=== PATIENT | female | born 1970 | race Hispanic/Latino ===

== ENCOUNTER → 2017-02-08 | Day surgery (SDC) | payer OTHER ==
[~2017-02-08] MED LIST: ATIVAN PO; ATIVAN2 MG PO; BENTYL20 MG PO; CARAFATE PO; CARAFATE1 GM PO; CHLORDIAZEPOXI1 EACH PO; DEXILANT PO; DEXILANT60 MG PO; FENTANYL CITRATE/PF 100MCG/2 ML INJ ONE; FIORICET; FNT50TD TOP; HYDROCODONE PO; HYOSCYAMINE SULFATE 0.5 MG/ML AMP ONE; IMITREX25 MG; LIBRAX CAPSULE1 EACH PO; LIBRAX PO; LIDOCAINE HCL 2% LOCAL INJ 5 ML SDV VIAL INJ ONE; LINZESS PO; LORAZEPAM2 MG PO; MIDAZOLAM HCL 2 MG/2 ML VIAL ONE; NEXIUM40 MG PO; NORVASC PO; NORVASC10 MG PO; PAXIL CR25 MG PO; PAXIL20 MG PO; PAXIL40 MG PO; PHENERGAN25 MG/1 ML PO; PROPOFOL IV EMULSION 10 MG/ML 50 ML VIAL ONE; PROTONIX40 MG PO; SKELAXIN PO; SKELAXIN800 M1 PO; TRAZODONE HCL50 MG PO; ULTRAM50 MG PO; Z.0.ALPRAZOLAM1 MG PO; Z.0.BENTYL20 MG MT; Z.0.NORCO 10-325 T1; Z.0.NORVASC5 MG PO; Z.0.PAXIL10 MG PO; Z.0.PHENERGAN25 M1 MT; [UNRECOGNIZED DRUG - OTHER] PO
--- NOTE | 2017-02-08 09:41 | Operative Report ---
DATE OF PROCEDURE: February 08, 2017 REFERRING PHYSICIAN: Dr. Vinicio Rangel PROCEDURE PERFORMED: Esophagogastroduodenoscopy with esophageal dilatation and pyloric channel stricture dilatation. INDICATIONS FOR EGD: Dysphagia, upper abdominal pain and nausea. MEDICATION: Patient was done under MAC. Please see anesthesiologist's note. PROCEDURE: With the patient in the left lateral decubitus position, the flexible fiberoptic Olympus gastroscope was introduced into the esophagus under direct visualization without any difficulty. There was some patchy erythema noted in the distal esophagus. A mild stricture was noted at the GE junction that was dilated to a size 54-Korean Banda. The scope was then advanced with ease into the stomach. Mucosa overlying the antrum and the body revealed some patchy erythema and moderate edema, and biopsies were obtained and sent to stain for H. pylori. The pylorus was stenotic and was dilated to size 20 mm per TTS balloon dilators. The scope was then advanced with ease all the way to the 2nd portion of the duodenum. It was then withdrawn slowly. Mucosa overlying the proximal 2nd portion and the duodenal bulb appeared to be within normal limits. The scope was then withdrawn back into the stomach and retroflexed. The mucosa overlying the fundus and the cardia appeared to be within normal limits. The scope was then straightened out. The stomach was decompressed. The scope was subsequently withdrawn. Patient tolerated the procedure well. IMPRESSION 1. Distal esophagitis. 2. Esophageal stricture at gastroesophageal junction, mild, dilated to size 54-K[place] Banda. 3. Gastritis, biopsied. Biopsies sent to stain for Helicobacter pylori. 4. Pyloric channel stricture, dilated to size 20 mm per TTS balloon dilators. PLAN: Follow up histology. Continue Nexium 40 mg 1 p.o. a.c. b.i.d. Start Levsin sublingual 0.125 mg 2 sublingual q.4 h. p.r.n. Job#: [id number] RI cc:ASUNCION RANGEL MD
== END | disposition home or self-care (01) ==
LOC: OR 06:51
PROVIDERS: ATTEND Internal Medicine Gastroenterology
DX: K22.2 Esophageal obstruction (principal); K29.70 Gastritis, unspecified, without bleeding; K31.1 Adult hypertrophic pyloric stenosis; K20.9 Esophagitis, unspecified; I10 Essential (primary) hypertension; F41.9 Anxiety disorder, unspecified; Z01.810 Encounter for preprocedural cardiovascular examination; Z68.31 Body mass index [BMI] 31.0-31.9, adult
CPT/HCPCS: 43239; 43245; 43450; 93005; C1726; J1980; J2001; J2250; 43233

== ENCOUNTER 2017-04-25 20:31 | Emergency (ER) | payer OTHER ==
[~2017-04-25] VITALS: Ht 162.6 cm; Wt 79.4 kg
[~2017-04-25 20:31] MED LIST changes: -FENTANYL CITRATE/PF 100MCG/2 ML INJ ONE; -HYOSCYAMINE SULFATE 0.5 MG/ML AMP ONE; -LIDOCAINE HCL 2% LOCAL INJ 5 ML SDV VIAL INJ ONE; -MIDAZOLAM HCL 2 MG/2 ML VIAL ONE; -PROPOFOL IV EMULSION 10 MG/ML 50 ML VIAL ONE
--- OUTSIDE RECORDS SUMMARY | 2017-04-25 20:35 | XMS REPORT | Clinical Summary ---
Author Author [employer] [facility] [employer] Address Unknown Phone Unavailable Care Team Providers Care Landscape Crew Leader Name Role Phone Mike Fernández MD PCP Allergies Active Allergy Reactions Severity Noted Date Comments Sulfamethoxazole-Trimetho 04/10/2017 prim Nsaids (Non-Steroidal 04/10/2017 Anti-Inflammatory Drug) Current Medications Prescription Sig. Disp. Refills Start End Date Status Date amLODIPine (NORVASC) 10 TAKE 1 TABLET BY MOUTH 0 03/27/19 Active mg tablet DAILY 30 18 chlordiazepoxide-clidiniu TAKE ONE CAPSULE BY MOUTH 3 03/18/19 Active m (LIBRAX) 5-2.5 mg per 3 TIMES A DAY BEFORE 18 capsule MEALS dicyclomine (BENTYL) 20 TAKE 1 TABLET BY MOUTH 1 03/13/19 Active mg tablet EVERY 6 HOURS NEEDED 18 CRAMPS esomeprazole (NexIUM) 40 Take 40 mg by mouth 2 3 02/01/20 Active MG capsule (two) times a day. 17 hyoscyamine (LEVSIN) DISSOLVE 2 TABLETS UNDER 2 03/18/19 Active 0.125 mg SL tablet THE TONGUE EVERY 4 HOURS 18 NEEDED LORAZepam (ATIVAN) 2 MG Take 2 mg by mouth 3 0 03/30/19 Active tablet (three) times a day as 18 needed. PARoxetine (PAXIL) 30 MG Take 60 mg by mouth every 0 03/30/19 Active tablet morning. 18 promethazine (PHENERGAN) TAKE 1 TABLET NEEDED 1 03/31/19 Active 25 MG tablet EVERY 6-8 HRS ORALLY 30 18 traZODone (DESYREL) 150 Take 300 mg by mouth 0 03/02/19 Active MG tablet nightly. 18 Active Problems Not on file Encounters Date Type Specialty Care Team Description 04/10/2017 Emergency Emergency Medicine Paco, Natalie Porras Left upper quadrant pain (Primary Dx) after 04/24/2016 Social History Tobacco Use Types Packs/Day Years Used Date Never Smoker Smokeless Tobacco: Never Used Alcohol Use Drinks/Week oz/Week Comments No Sex Assigned at Date Recorded Not on file Last Filed Vital Signs Vital Sign Reading Time Taken Blood Pressure 146/91 04/10/2017 9:00 AM SILICATOR Pulse 77 04/10/2017 9:00 AM SILICATOR Temperature 36.8 C (98.2 F) 04/10/2017 7:21 AM SILICATOR Respiratory Rate 17 04/10/2017 9:00 AM SILICATOR Oxygen Saturation 97% 04/10/2017 9:00 AM SILICATOR Inhaled Oxygen - - Concentration Weight 79.4 kg (175 lb) 04/10/2017 7:21 AM SILICATOR Height 165.1 cm (5' 5") 04/10/2017 7:21 AM SILICATOR Body Mass Index 29.12 04/10/2017 7:21 AM SILICATOR Plan of Treatment Health Maintenance Due Date Last Done Comments PAP SMEAR 1991 INFLUENZA VACCINE 09/19/2016 Results * hCG qualitative, urine screen (04/10/2017 9:00 AM) Component Value Ref Range hCG qualitative, urine Negative Negative Comment: The manufacturers stated sensitivity of HcG test for serum is >/=10 mIU/ml and urine is >/=20mIU/ml. Specimen Performing Laboratory Urine [facility] DEPARTMENT OF PATHOLOGY AND GENOMIC MEDICINE [address] [place] [address] * CT Abdomen Pelvis W Contrast (04/10/2017 8:40 AM) Specimen Performing Laboratory [facility] [address] [place] [address] Narrative EXAMINATION:CT ABDOMEN PELVIS W CONTRAST CLINICAL HISTORY:left lower quadrant abdominal pain TECHNIQUE: Multiple axial images of the abdomen and pelvis were obtained following intravenous administration of iodinated contrast. Sagittal and coronal computerized reformatted images were also obtained. CT imaging was performed with iterative reconstruction technique and/or automated exposure control to reduce radiation dose. COMPARISON:08/20/2015 IMPRESSION: 1.Small area of tree-in-bud appearing opacities in the subpleural left lung base, likely focal bronchiolitis. 2.Fatty liver. Cholecystectomy. Normal adrenals, spleen, and pancreas. 3.Small simple cyst in the upper pole right kidney. 4.Unremarkable stomach and small bowel. There is some redundancy noted in the colon. Scattered colonic diverticula without evidence of diverticulitis. Normal appendix. 5.The bladder is moderately distended but otherwise unremarkable. Hysterectomy. No free fluid. 6.Mild degenerative changes in the spine. Expansile low density lesion in the posterior right eighth rib. Unchanged compared to prior exam and likely bone cyst or possible sequelae of prior insult. 7.Umbilical mesh hernia repair again noted. 8.Abdominal and pelvic vasculature is within normal limits. SUMMARY: No acute abnormality. [facility]-[id number] Procedure Note [facility], Radiology Results Incoming - 04/10/2017 9:18 AM SILICATOR EXAMINATION: CT ABDOMEN PELVIS W CONTRAST CLINICAL HISTORY: left lower quadrant abdominal pain TECHNIQUE: Multiple axial images of the abdomen and pelvis were obtained following intravenous administration of iodinated contrast. Sagittal and coronal computerized reformatted images were also obtained. CT imaging was performed with iterative reconstruction technique and/or automated exposure control to reduce radiation dose. COMPARISON: 08/20/2015 IMPRESSION: 1. Small area of tree-in-bud appearing opacities in the subpleural left lung base, likely focal bronchiolitis. 2. Fatty liver. Cholecystectomy. Normal adrenals, spleen, and pancreas. 3. Small simple cyst in the upper pole right kidney. 4. Unremarkable stomach and small bowel. There is some redundancy noted in the colon. Scattered colonic diverticula without evidence of diverticulitis. Normal appendix. 5. The bladder is moderately distended but otherwise unremarkable. Hysterectomy. No free fluid. 6. Mild degenerative changes in the spine. Expansile low density lesion in the posterior right eighth rib. Unchanged compared to prior exam and likely bone cyst or possible sequelae of prior insult. 7. Umbilical mesh hernia repair again noted. 8. Abdominal and pelvic vasculature is within normal limits. SUMMARY: No acute abnormality. [id number] * Estimated GFR (04/10/2017 7:25 AM) Component Value Ref Range GFR Non Af Amer >90 mL/min/1.73 m2 GFR Af Amer >90 mL/min/1.73 m2 Comment: Chronic kidney disease: <60 mL/min/1.73m2 Kidney failure: <15 mL/min/1.73m2 The estimated GFR is calculated from the IDMS-traceable Modification of Diet in Renal Disease Equation. The accuracy of the calculation is poor when the creatinine is normal. Calculated values >90 mL/min/1.73m2 are not reported. This equation has not been validated in children (<18 years), women, the elderly (>70 years), or ethnic groups other than Caucasians and Americans. Specimen Performing Laboratory Plasma specimen [facility] DEPARTMENT OF PATHOLOGY AND [facility] MEDICINE [id number] [place] [address] [place] [address] * CBC with platelet and differential (04/10/2017 7:25 AM) Component Value Ref Range WBC 8.54 4.50 - 11.00 k/uL RBC 3.98 (L) 4.20 - 5.50 m/uL HGB 13.0 12.0 - 16.0 g/dL HCT 37.2 37.0 - 47.0 % MCV 93.5 82.0 - 100.0 fL MCH 32.7 27.0 - 34.0 pg MCHC 34.9 31.0 - 37.0 g/dL RDW - SD 49.2 37.0 - 55.0 fL MPV 9.4 8.8 - 13.2 fL Platelet count 259 150 - 400 k/uL Nucleated RBC 0.00 /100 WBC Neutrophils 50.9 39.0 - 69.0 % Lymphocytes 40.2 25.0 - 45.0 % Monocytes 4.7 0.0 - 10.0 % Eosinophils 3.4 0.0 - 5.0 % Basophils 0.4 0.0 - 1.0 % Immature granulocytes 0.4Comment: "Immature granulocytes" 0.0 - 1.0 % (promyelocytes, myelocytes, metamyelocytes) Specimen Performing Laboratory Blood [facility] DEPARTMENT OF PATHOLOGY AND Cancer Therapy [facility] Research Center [facility] [id number] [place] [address] [place] [address] * Creatine kinase, total (CPK) (04/10/2017 7:25 AM) Component Value Ref Range Creatine kinase 106 26 - 192 U/L Specimen Performing Laboratory Plasma specimen [facility] DEPARTMENT PATHOLOGY AND [facility] MEDICINE [address] [place] [address] * Alcohol level, blood (04/10/2017 7:25 AM) Component Value Ref Range Alcohol None Detected mg/dL Comment: Normal None Detected Legal Intoxication in [place] 80 mg/dL (0.08%) - Whole Blood Toxic Concentration 200 mg/dL (0.2%) Potentially Fatal 350 - 500 mg/dL (0.35 - 0.5%) Alcohol percent None Detected % Specimen Performing Laboratory Plasma specimen [facility] DEPARTMENT OF PATHOLOGY AND GENOMIC [facility] [address] [place] [address] * Basic metabolic panel (04/10/2017 7:25 AM) Component Value Ref Range Sodium 140 135 - 148 mEq/L Potassium 3.9 3.5 - 5.0 mEq/L Chloride 100 98 - 112 mEq/L CO2 25 24 - 31 mEq/L Anion gap 15 7 - 15 mEq/L Comment: Starting from May , anion gap calculation no longer incorporates potassium. Please note the change. BUN 9 6 - 20 mg/dL Creatinine 0.5 0.5 - 0.9 mg/dL Glucose 121 (H) 65 - 99 mg/dL Calcium 9.7 8.3 - 10.2 mg/dL Specimen Performing Laboratory Plasma specimen [facility] PATHOLOGY AND [facility] [address] [place] [address] * ECG 12 lead (04/10/2017 7:23 AM) Component Value Ref Range Ventricular rate 93 Atrial rate 93 [place] interval 116 QRSD interval 88 QT interval 404 QTC interval 502 P axis 1 57 QRS axis 1 93 T wave axis 57 EKG impression Normal sinus rhythm-Rightward axis-Prolonged QT-Abnormal ECG-In automated comparison with ECG of 21-DEC-2015 19:34,-No significant change was found- Specimen Performing Laboratory [facility] [address] [place] [address] Procedure Note Natalie Antonio DO - 04/10/2017 7:11 AM SILICATOR Formatting of this note may be different from the original. Emergency Department Provider Note Location: [facility] ED Patient ID: Mona Wayne is a 46 y.o. female. Chief Complaint Chief Complaint Patient presents with Altered Mental Status Ems reports not responding at home after taking ativan and phenergan Chest Pain Started around 0400 this am Abdominal Pain Nausea History of Present Illness 46 y.o. female presents to the ED with AMS. EMS reports pt took Ativan and Phenergan which made her un responsive, EMS reports pt took her covers and some articles of clothing off in the ambulance and then became unconscious again. EMS denies suspect ETOH consumption. Pt reports she took medication because she was throwing up and dizzy with associated sx of abd pain. History provided by: Patient and EMS personnel Altered Mental Status Presenting symptoms: unresponsiveness Severity: Moderate Most recent episode: Today Episode history: Single Timing: Constant Progression: Unchanged Chronicity: New Context: not alcohol use Associated symptoms: abdominal pain and vomiting Abdominal pain: Location: LUQ Severity: Moderate Onset quality: Sudden Timing: Intermittent Progression: Unchanged Vomiting: Quality: Unable to specify Severity: Unable to specify Timing: Unable to specify Progression: Unchanged History Allergies Allergies Allergen Reactions Bactrim [Sulfamethoxazole-Trimethoprim] Nsaids (Non-Steroidal Anti-Inflammatory Drug) Past Medical History Past Medical History: Diagnosis Date Anxiety Depression Diverticulitis Heart attack Hypertension Irritable bowel syndrome Past Surgical History Past Surgical History: Procedure Laterality Date CHOLECYSTECTOMY HAND SURGERY Left HEMORRHOIDECTOMY HERNIA REPAIR HYSTERECTOMY Past Family History No family history on file. Past Social History Social History Social History Main Topics Smoking status: Never Smoker Smokeless tobacco: Never Used Alcohol use No Drug use: No Sexual activity: Not on file Past Social History Narrative Social History Social History Narrative No narrative on file Medications Discharge Medication List as of 04/10/2017 9:53 AM CONTINUE these medications which have NOT CHANGED Details amLODIPine (NORVASC) 10 mg tablet TAKE 1 TABLET BY MOUTH DAILY 30, Historical Med chlordiazepoxide-clidinium (LIBRAX) 5-2.5 mg per capsule TAKE ONE CAPSULE BY MOUTH 3 TIMES A DAY BEFORE MEALS, Historical Med dicyclomine (BENTYL) 20 mg tablet TAKE 1 TABLET BY MOUTH EVERY 6 HOURS NEEDED CRAMPS, Historical Med esomeprazole (NexIUM) 40 MG capsule Take 40 mg by mouth 2 (two) times a day., Starting Sun01/31/2017, Historical Med hyoscyamine (LEVSIN) 0.125 mg SL tablet DISSOLVE 2 TABLETS UNDER THE TONGUE EVERY 4 HOURS NEEDED, Historical Med LORAZepam (ATIVAN) 2 MG tablet Take 2 mg by mouth 3 (three) times a day as needed., Starting Sun03/30/2017, Historical Med PARoxetine (PAXIL) 30 MG tablet Take 60 mg by mouth every morning., Starting Sun03/30/2017, Historical Med promethazine (PHENERGAN) 25 MG tablet TAKE 1 TABLET NEEDED EVERY 6-8 HRS ORALLY 30, Historical Med traZODone (DESYREL) 150 MG tablet Take 300 mg by mouth nightly., Starting 01/2018, Historical Med Discharge Medication List as of 04/10/2017 9:53 AM Review of Systems Review of Systems Unable to perform ROS: Mental status change Gastrointestinal: Positive for abdominal pain and vomiting. Neurological: Positive for dizziness. Physical Exam Vitals: 04/10/17 0900 BP: 146/91 Pulse: 77 Resp: 17 Temp: SpO2: 97% Physical Exam Constitutional: She is oriented to person, place, and time. She appears well- developed and well-nourished. HENT: Head: Normocephalic and atraumatic. Eyes: Conjunctivae and EOM are normal. Neck: Normal range of motion. Neck supple. Cardiovascular: Normal rate, regular rhythm and normal heart sounds. Pulmonary/Chest: Effort normal and breath sounds normal. No respiratory distress. Abdominal: Soft. She exhibits no distension. There is tenderness in the left upper quadrant. Musculoskeletal: Normal range of motion. She exhibits no edema. Neurological: She is alert and oriented to person, place, and time. Coordination normal. Skin: Skin is warm and dry. No rash noted. Psychiatric: She has a normal mood and affect. Her behavior is normal. Nursing note and vitals reviewed. ED Course ED Course as of Apr 10 1339 Tue Apr 10, [address] of abdomen and pelvis showed distended bladder otherwise unremarkable. [CC] ED Course User Index [CC] Vilma Hi No emergent findings on exam or imaging. History of chronic abdominal pain. Stable for discharge. MDM MDM Number of Diagnoses or Management Options Left upper quadrant pain: new and requires workup Amount and/or Complexity of Data Reviewed Clinical lab tests: reviewed and ordered Tests in the medicine section of CPT: ordered and reviewed Decide to obtain previous medical records or to obtain history from someone other than the patient: yes Obtain history from someone other than the patient: yes Review and summarize past medical records: yes Independent visualization of images, tracings, or specimens: yes Risk of Complications, Morbidity, and/or Mortality Presenting problems: moderate Diagnostic procedures: moderate Management options: moderate Patient Progress Patient progress: stable Labs Results for orders placed or performed during the hospital encounter of CBC with platelet and differential Result Value Ref Range WBC 8.54 4.50 - 11.00 k/uL RBC 3.98 (L) 4.20 - 5.50 m/uL HGB 13.0 12.0 - 16.0 g/dL HCT 37.2 37.0 - 47.0 % MCV 93.5 82.0 - 100.0 fL MCH 32.7 27.0 - 34.0 pg MCHC 34.9 31.0 - 37.0 g/dL RDW - SD 49.2 37.0 - 55.0 fL MPV 9.4 8.8 - 13.2 fL Platelet count 259 150 - 400 k/uL Nucleated RBC 0.00 /100 WBC Neutrophils 50.9 39.0 - 69.0 % Lymphocytes 40.2 25.0 - 45.0 % Monocytes 4.7 0.0 - 10.0 % Eosinophils 3.4 0.0 - 5.0 % Basophils 0.4 0.0 - 1.0 % Immature granulocytes 0.4 0.0 - 1.0 % Alcohol level, blood Result Value Ref Range Alcohol None Detected mg/dL Alcohol percent None Detected % Creatine kinase, total (CPK) Result Value Ref Range Creatine kinase 106 26 - 192 U/L Basic metabolic panel Result Value Ref Range Sodium 140 135 - 148 mEq/L Potassium 3.9 3.5 - 5.0 mEq/L Chloride 100 98 - 112 mEq/L CO2 25 24 - 31 mEq/L Anion gap 15 7 - 15 mEq/L BUN 9 6 - 20 mg/dL Creatinine 0.5 0.5 - 0.9 mg/dL Glucose 121 (H) 65 - 99 mg/dL Calcium 9.7 8.3 - 10.2 mg/dL Estimated GFR Result Value Ref Range GFR Non Af Amer >90 mL/min/1.73 m2 GFR Af Amer >90 mL/min/1.73 m2 hCG qualitative, urine screen Result Value Ref Range hCG qualitative, urine Negative Negative ECG 12 lead Result Value Ref Range Ventricular rate 93 Atrial rate 93 [place] interval 116 QRSD interval 88 QT interval 404 QTC interval 502 P axis 1 57 QRS axis 1 93 T wave axis 57 EKG impression Normal sinus rhythm-Rightward axis-Prolonged QT-Abnormal ECG-In automated comparison with ECG of 21-DEC-2015 19:34,-No significant change was found- Radiology Ct Abdomen Pelvis W Contrast Result Date: 04/10/2017 Narrative: EXAMINATION: CT ABDOMEN PELVIS W CONTRAST CLINICAL HISTORY: left lower quadrant abdominal pain TECHNIQUE: Multiple axial images of the abdomen and pelvis were obtained following intravenous administration of iodinated contrast. Sagittal and coronal computerized reformatted images were also obtained. CT imaging was performed with iterative reconstruction technique and/ or automated exposure control to reduce radiation dose. COMPARISON: 08/20/2015 IMPRESSION: 1. Small area of tree-in-bud appearing opacities in the subpleural left lung base, likely focal bronchiolitis. 2. Fatty liver. Cholecystectomy. Normal adrenals, spleen, and pancreas. 3. Small simple cyst in the upper pole right kidney. 4. Unremarkable stomach and small bowel. There is some redundancy noted in the colon. Scattered colonic diverticula without evidence of diverticulitis. Normal appendix. 5. The bladder is moderately distended but otherwise unremarkable. Hysterectomy. No free fluid. 6. Mild degenerative changes in the spine. Expansile low density lesion in the posterior right eighth rib. Unchanged compared to prior exam and likely bone cyst or possible sequelae of prior insult. 7. Umbilical mesh hernia repair again noted. 8. Abdominal and pelvic vasculature is within normal limits. SUMMARY: No acute abnormality. [facility]-[id number] Procedures ECG 12 lead Date/Time: 04/10/2017 7:35 AM Performed by: NATALIE ANTONIO Authorized by: NATALIE ANTONIO ECG reviewed by ED Physician in the absence of a nuclear powerplant mechanic: yes Interpretation: Interpretation: normal Rate: ECG rate: 93 ECG rate assessment: normal Rhythm: Rhythm: sinus rhythm Ectopy: Ectopy: none QRS: QRS axis: Normal Conduction: Conduction: normal ST segments: ST segments: Normal T waves: T waves: normal Differential Diagnoses The differential diagnosis includes but not limited to toxic/metabolic encephalopathy (including hypoglycemia, electrolyte abnormalities, endocrine, hypoxia/hypercarbia), CVA/TIA/ICH, Drug ingestion or other environmental exposure, Infectious/sepsis, meningitis encephalitis, abscess, delirium/dementia , psychogenic, traumatic, seizure, iatrogenic. DDX includes causes considered but not specified given they were low prob or unlikely to cause immediate or disability. Workup for unlisted, unlikely, or benign causes would likely have yielded harm exceeding benefit. Final Diagnoses Final diagnoses: Left upper quadrant pain Disposition This patient has a disposition of Discharge. ED Attestations Scribe Attestation: This document is recorded by Vilma Hi acting as a scribe under the direction and presence of NATALIE ANTONIO. Provider attestation of scribe: Vilma Hi: I personally performed the services recorded by the scribe in my presence. I confirm the scribe's documentation has been reviewed by me to accurately record my work, treatment, procedures, and medical decision making. Vilma Hi 04/10/17 0736 Natalie Antonio DO 04/10/17 1340 after 04/24/2016
[2017-04-25] MEDS ORDERED: PROMETHAZINE HC25 M1 PO (20:45)
[2017-04-25] MEDS ORDERED: LEVSIN0.125 MG SL (20:45)
--- NOTE | 2017-04-25 21:27 | Diagnostic Imaging Report ---
EXAMINATION: Head CT without contrast. HISTORY:Fall. COMPARISON:CT brain from 10/05/2013. TECHNIQUE: Multidetector axial images were obtained from the foramen magnum to the vertex without contrast. The images were reconstructed using brain and bone algorithms. Thin section brain images were reformatted into coronal and sagittal planes. Intravenous contrast: None IMAGE QUALITY: Acceptable. FINDINGS: Skull/scalp: No abnormality. Parenchyma: No abnormal density. No acute hemorrhage, mass or acute major vascular territorial infarct. Arteries: No density suggestive of thrombosis. Dural sinuses: No abnormal density suggestive of thrombosis. Ventricles: No hydrocephalus or displacement. Extra-axial spaces: No abnormal density. Brain volume: Normal for age. Craniocervical junction: No mass, Chiari malformation, or basilar invagination. Sella: No mass. Paranasal/mastoid sinuses: Imaged portions unremarkable. IMPRESSION: No intracranial abnormality. Signed by: Dr. Dee Ellison M.D. on 04/25/2017 9:23 PM
--- NOTE | 2017-04-25 21:32 | Diagnostic Imaging Report ---
History: Fall. Comparison studies: CT cervical spine from 10/05/2013. Technique: Axial images were obtained through the cervical region.. Coronal and sagittal images reconstructed from the axial data.. Intravenous contrast: None Findings: Fractures: None. Soft tissue injuries: None. Atlantoaxial articulation: Intact. Alignment: Loss of normal cervical lordosis is either positional or due to muscle spasm. No scoliosis. Cervicomedullary junction: No abnormalities. The foramen magnum is patent. Soft tissues: No abnormalities. Vertebrae: No fractures, infection or neoplasm. Degenerative changes: None. IMPRESSION: 1. No acute cervical spine fracture or dislocation. Loss of normal cervical lordosis is either positional or due to muscle spasm. 2. Ligament, spinal cord and or vascular abnormalities cannot be excluded on the basis of this examination. Signed by: Dr. Dee Ellison M.D. on 04/25/2017 9:29 PM
[2017-04-25] MEDS ORDERED: PROMETHAZINE HCL (IM) 25 MG/ML VIAL IM ONE (21:45)
[2017-04-25] MEDS ORDERED: KETOROLAC TROMETHAMINE 30 MG/ML VIAL IV STA (21:54)
--- NOTE | 2017-04-25 22:11 | Diagnostic Imaging Report ---
HIP RIGHT 2-3 VW (+/- PELVIS) HISTORY: Status post fall. COMPARISON: None FINDINGS: Bones: No displaced fracture. Osseous alignment is within normal limits. Joints: The joint spaces are well-maintained. Soft tissues: The soft tissues appear unremarkable. IMPRESSION: No acute radiographic abnormality. Signed by: Dr. Osiel Valdez M.D. on 04/25/2017 10:07 PM
== END 2017-04-25 22:39 | disposition home or self-care (01) ==
LOC: ER 20:31
DX: S00.83XA Contusion of other part of head, initial encounter (principal); S70.01XA Contusion of right hip, initial encounter; R51 Headache; W18.2XXA Fall in (into) shower or empty bathtub, initial encounter; Y93.E1 Activity, personal bathing and showering; Y92.002 Bathroom of unspecified non-institutional (private) residence as the place of occurrence of the external cause; I10 Essential (primary) hypertension; K58.9 Irritable bowel syndrome, unspecified; F41.9 Anxiety disorder, unspecified; F32.9 Major depressive disorder, single episode, unspecified
CPT/HCPCS: 70450; 72125; 73502; 99283; J1885; J2550

== ENCOUNTER 2017-05-06 05:06 | Emergency (ER) | payer OTHER ==
[~2017-05-06] VITALS: Ht 162.6 cm; Wt 79.4 kg
[~2017-05-06 05:06] MED LIST changes: +LEVSIN0.125 MG SL; +PROMETHAZINE HC25 M1 PO
--- OUTSIDE RECORDS SUMMARY | 2017-05-06 05:09 | XMS REPORT ---
Author Author [facility] Address Unknown Phone Unavailable Care Team Providers Care Cst Name Role Phone KAMINI BARRIOS Unavailable Unavailable Problems This patient has no known problems. Allergies, Adverse Reactions, Alerts This patient has no known allergies or adverse reactions. Medications This patient has no known medications. Results Test Description Test Time Test Comments Text Results Atomic Results Result Comments HIP RIGHT 2-3 VW (+/- PELVIS) [place] [address] Patient Name: JANAY FLEMING MR #: [id number] : 1970 Age/Sex: 47/F Req #: [id number] Adm Physician: Ordered by: KAMINI BARRIOS MD Report #: [id number] Location: ER Room/Bed: ___ Procedure: [id number] DX/HIP RIGHT 2-3 VW (+/- PELVIS) Exam Date: Exam Time: REPORT STATUS: Signed HIP RIGHT 2-3 VW (+/- PELVIS) HISTORY: Status post fall. COMPARISON: None FINDINGS: Bones: No displaced fracture. Osseous alignment is within normal limits. Joints: The joint spaces are well-maintained. Soft tissues: The soft tissues appear unremarkable. IMPRESSION: No acute radiographic abnormality. Signed by: Dr. Osiel Valdez M.D. on 2017 10:07 PM Dictated By: OSIEL MURPHY MD 06 Transcribed By: SERAFIN on 04/25/172206 COPY TO: KAMINI BARRIOS MD CT BRAIN WO [place] [address] Patient Name: JANAY FLEMING MR #: [id number] : 1970 Age/Sex: 47/F Req # : [id number] Adm Physician: Ordered by: RAGHAV FLEMING PARK ATTENDANT Report #: [id number] Location: ER Room/Bed: Procedure: [id number] CT/CT BRAIN WO Exam Date: Exam Time: REPORT STATUS: Signed EXAMINATION: Head CT without contrast. HISTORY:Fall. COMPARISON:CT brain from 10/05/2013. TECHNIQUE: Multidetector axial images were obtained from the foramen magnum to the vertex without contrast. The images were reconstructed using brain and bone algorithms. Thin section brain images were reformatted into coronal and sagittal planes. Intravenous contrast: None IMAGE QUALITY: Acceptable. FINDINGS: Skull/scalp: No abnormality. Parenchyma: No abnormal density. No acute hemorrhage, mass or acute major vascular territorial infarct. Arteries: No density suggestive of thrombosis. Dural sinuses: No abnormal density suggestive of thrombosis. Ventricles: No hydrocephalus or displacement. Extra-axial spaces: No abnormal density. Brain volume: Normal for age. Craniocervical junction: No mass, Chiari malformation, or basilar invagination. Sella: No mass. Paranasal/mastoid sinuses: Imaged portions unremarkable. IMPRESSION: No intracranial abnormality. Signed by: Dr. Dee Ellison M.D. on 04/25/2017 9:23 PM Dictated By: DEE ELLISON MD 22 Transcribed By: SERAFIN on 04/25 COPY TO: RAGHAV FLEMING PARK ATTENDANT CT CERVICAL SPINE WO [place] [address] Patient Name: JANAY FLEMING MR #: [id number] : 1970 Age/Sex: 47/F Req #: [id number] Adm Physician: Ordered by: RAGHAV FLEMING NP Report #: [id number] Location: ER Room/Bed: Procedure: [id number] CT/CT CERVICAL SPINE WO Exam Date: Exam Time: REPORT STATUS: Signed History: Fall. Comparison studies: CT cervical spine from 10/05/2013. Technique: Axial images were obtained through the cervical region.. Coronal and sagittal images reconstructed from the axial data.. Intravenous contrast: None Findings: Fractures: None. Soft tissue injuries: None. Atlantoaxial articulation: Intact. Alignment: Loss of normal cervical lordosis is either positional or due to muscle spasm. No scoliosis. Cervicomedullary junction: No abnormalities. The foramen magnum is patent. Soft tissues: No abnormalities. Vertebrae: No fractures, infection or neoplasm. Degenerative changes: None. IMPRESSION: 1. No acute cervical spine fracture or dislocation. Loss of normal cervical lordosis is either positional or due to muscle spasm. 2. Ligament, spinal cord and or vascular abnormalities cannot be excluded on the basis of this examination. Signed by: Dr. Dee Ellison M.D. on 04/25/2017 9:29 PM Dictated By: DEE ELLISON MD 28 Transcribed By: SERAFIN on 04/25/172128 COPY TO: RAGHAV FLEMING PARK ATTENDANT
--- OUTSIDE RECORDS SUMMARY | 2017-05-06 05:09 | XMS REPORT | Clinical Summary ---
Author Author [facility] Address Unknown Phone Unavailable Care Team Providers Care Transportation Inspector Name Role Phone Mike Fernández MD PCP [...] Left upper quadrant pain (Primary Dx) after 05/05/2016 Social History Tobacco Use Types Packs/Day Years Used Date Never Smoker Smokeless Tobacco: Never Used Alcohol Use Drinks/Week oz/Week Comments No Sex Assigned at Date Recorded Not on file Last Filed Vital Signs Vital Sign Reading Time Taken Blood Pressure 146/91 04/10/2017 9:00 AM RATER ASSOCIATE Pulse 77 04/10/2017 9:00 AM RATER ASSOCIATE Temperature 36.8 C (98.2 F) 04/10/2017 7:21 AM RATER ASSOCIATE Respiratory Rate 17 04/10/2017 9:00 AM RATER ASSOCIATE Oxygen Saturation 97% 04/10/2017 9:00 AM RATER ASSOCIATE Inhaled Oxygen - - Concentration Weight 79.4 kg (175 lb) 04/10/2017 7:21 AM RATER ASSOCIATE Height 165.1 cm (5' 5") 04/10/2017 7:21 AM RATER ASSOCIATE Body Mass Index 29.12 04/10/2017 7:21 AM RATER ASSOCIATE Plan of Treatment Health Maintenance Due Date Last Done Comments PAP SMEAR 1991 INFLUENZA VACCINE 09/19/2016 Results * hCG qualitative, urine screen (04/10/2017 9:00 AM) Component Value Ref Range hCG qualitative, urine Negative Negative Comment: The manufacturers stated sensitivity of HcG test for serum is >/=10 mIU/ml and urine is >/=20mIU/ml. Specimen Performing Laboratory Urine [facility] DEPARTMENT OF PATHOLOGY AND GENOMIC MEDICINE [address] [place] [address] * CT Abdomen Pelvis W Contrast (04/10/2017 8:40 AM) Specimen Performing Laboratory [facility] [address] [place] [address] Narrative EXAMINATION:CT ABDOMEN PELVIS W CONTRAST CLINICAL [...] within normal limits. SUMMARY: No acute abnormality. [facility]-[id number] Procedure Note [facility], Radiology Results Incoming - 04/10/2017 9:18 AM RATER ASSOCIATE EXAMINATION: CT ABDOMEN PELVIS W CONTRAST CLINICAL [...] within normal limits. SUMMARY: No acute abnormality. [facility]-[id number] * Estimated GFR (04/10/2017 7:25 AM) Component [...] and Americans. Specimen Performing Laboratory Plasma specimen [facility] DEPARTMENT OF PATHOLOGY AND [employer] MEDICINE [id number] [place] [address] [place] [address] * CBC with platelet and differential (04/10/2017 [...] (promyelocytes, myelocytes, metamyelocytes) Specimen Performing Laboratory Blood [facility] DEPARTMENT OF PATHOLOGY AND [employer] [facility] [id number] [place] [address] [place] [address] * Creatine kinase, total (CPK) (04/10/2017 7:25 AM) Component Value Ref Range Creatine kinase 106 26 - 192 U/L Specimen Performing Laboratory Plasma specimen [facility] DEPARTMENT PATHOLOGY AND [employer] MEDICINE [address] [place] [address] * Alcohol level, blood (04/10/2017 7:25 AM) Component Value Ref Range Alcohol None Detected mg/dL Comment: Normal None Detected Legal Intoxication in [place] 80 mg/dL (0.08%) - Whole Blood Toxic Concentration 200 mg/dL (0.2%) Potentially Fatal 350 - 500 mg/dL (0.35 - 0.5%) Alcohol percent None Detected % Specimen Performing Laboratory Plasma specimen [facility] DEPARTMENT OF PATHOLOGY AND GENOMIC [facility] [address] [place] [address] * Basic metabolic panel (04/10/2017 7:25 AM) [...] 10.2 mg/dL Specimen Performing Laboratory Plasma specimen [facility] PATHOLOGY AND [facility] [address] [place] [address] * ECG 12 lead (04/10/2017 7:23 AM) Component Value Ref Range Ventricular rate 93 Atrial rate 93 DC interval 116 QRSD interval 88 QT interval 404 QTC interval 502 P axis 1 57 QRS axis 1 93 T wave axis 57 EKG impression Normal sinus rhythm-Rightward axis-Prolonged QT-Abnormal ECG-In automated comparison with ECG of 21-DEC-2015 19:34,-No significant change was found- Specimen Performing Laboratory [facility] [address] [place] [address] Procedure Note Natalie Antonio DO - 04/10/2017 7:11 AM RATER ASSOCIATE Formatting of this note may be different from the original. Emergency Department Provider Note Location: [facility] ED Patient ID: Mona Wayne is a [...] Range Ventricular rate 93 Atrial rate 93 DC interval 116 QRSD interval 88 QT interval [...] within normal limits. SUMMARY: No acute abnormality. [facility]-[id number] Procedures ECG 12 lead Date/Time: 04/10/2017 7:35 AM Performed by: NATALIE ANTONIO Authorized by: NATALIE ANTONIO ECG reviewed by ED Physician in the absence of a overhead worker: yes Interpretation: Interpretation: normal Rate: ECG rate: [...] of NATALIE ANTONIO. Provider attestation of scribe: Vlima Hi: I personally performed the services recorded by the scribe in my presence. I confirm the scribe's documentation has been reviewed by me to accurately record my work, treatment, procedures, and medical decision making. Vilma Hi 04/10/17 0736 Natalie Antonio DO 04/10/17 1340 after 05/05/2016
--- OUTSIDE RECORDS SUMMARY | 2017-05-06 05:10 | XMS REPORT | Continuity of Care Document ---
Author Author [facility] Organization [facility] Address [address] [place] [address] Phone Unavailable Care Team Providers Care Powerhouse Oiler Name Role Phone AQUILES RANGEL MD PCP Insurance Providers Guarantor Janay Fleming Address [address] [place] [address] Email [email or web address] Payer [employer] [facility] Policy Number [id number] Subscriber's Name Tonio Fleming Relationship 01 Group Number [id number] Group Name [facility] Effective Date 16 Advance Directives Directive Response Recorded Date/Time Does the patient have an advance directive? No 09/21/14 6:45am If yes, is advance directive on file with [facility]? No 02/27/14 1:45am If not on file with [facility] will patient provide a copy? No 09/21/14 6:45am Do you have a Directive to Physician? No 04/25/17 9:45pm Do you have a Medical Power of Firearms Sales Associate? No 04/25/17 9:45pm Do you have an out of hospital Do Not Resuscitate Order? No 04/25/17 9:45pm Do you have any special needs we should be aware of? No 04/25/17 9:45pm Do you have a support person here with you today? No 04/25/17 9:45pm Did patient receive Notice of Privacy Practices? Yes 04/25/17 9:45pm Did patient receive patient rights and responsibilities? Yes 04/25/17 9:45pm Problems Medical Problem Onset Date Status Abdominal pain 02/02/2014 Acute Chronic abdominal pain 02/26/2014 Acute Colitis 03/19/2014 Acute Vomiting 03/19/2014 Acute Medications Current Home Medications Medication Dose Units Route Directions Days Qty Instructions Start Date Amlodipine Besylate (Norvasc) 10 Mg Tab 10 Mg Oral Bedtime Chlordiazepoxide/Clidinium Br (Librax Capsule) 1 Each Capsule 1 Cap Oral Three Times A Day Dicyclomine Hcl (Bentyl) 20 Mg Tablet 20 Mg Oral Three Times A Day Esomeprazole Magnesium (Nexium) 40 Mg Capsule.dr 40 Mg Oral Twice A Day PROTONIX THERAPEUTIC SUBSTITUTE FOR NEXIUM PER [facility] Hyoscyamine Sulfate (Levsin) 0.125 Mg Tablet 2 Tab Sublingual Every 4 Hours Lorazepam (Ativan) 2 Mg Tablet 1 Tab Oral Twice A Day as needed for Anxiety Paroxetine Hcl (Paxil Cr) 25 Mg Tab.er.24h 50 Mg Oral Daily Promethazine Hcl 25 Mg Tablet 25 Mg Oral As Needed as needed for Nausea Trazodone Hcl 50 Mg Tablet 200 Mg Oral Bedtime 30 Tab Past Home Medications Medication Directions Ordered Status Alprazolam 1 Mg Tablet, 2 Mg Oral Bid Prn Discontinued Amlodipine Besylate (Norvasc) 5 Mg Tablet, 10 Mg Oral Daily Discontinued Chlordiazepoxide/Clidinium Br (Chlordiazepoxide-Clidinium Cap) 1 Each Capsule, 1 Cap Oral Three Times A Day Discontinued Dexlansoprazole (Dexilant) 60 Mg Cap., 1 Cap Oral Twice A Day Discontinued Dicyclomine Hcl (Bentyl) 20 Mg Tablet, 1 Mouth/Throat Tid Prn Discontinued Fioricet , Discontinued Hydrocodone , Mg Oral As Needed Discontinued Hydrocodone Bit/Acetaminophen ([place] 10-325 Tablet) 1 Each Tablet, Discontinued Linzess , 145 Mcg Oral Every Morning Discontinued Lorazepam 2 Mg Tablet, 2 Mg Oral Twice A Day Discontinued Pantoprazole Sodium (Protonix) 40 Mg Suspdr.pkt, 40 Mg Oral Daily Discontinued Paroxetine Hcl (Paxil) 40 Mg Tablet, 1 Tab Oral Daily Discontinued Paroxetine Hcl (Paxil) 20 Mg Tablet, 20 Mg Oral Daily Discontinued Paroxetine Hcl (Paxil) 10 Mg Tablet, 10 Mg Oral Daily Discontinued Promethazine Hcl (Phenergan) 25 Mg/1 Ml Ampul, 25 Mg Oral As Needed Discontinued Promethazine Hcl (Phenergan) 25 Mg Tablet, 0.5 Mouth/Throat Tid Prn Discontinued Sucralfate (Carafate) 1 Gm Tablet, 1 Gm Oral Four Times Daily Discontinued Sumatriptan Succinate (Imitrex) 25 Mg Tablet, Discontinued Tramadol Hcl (Ultram) 50 Mg Tablet, 50 Mg Oral Every 6 Hours as needed for Pain Discontinued Trimethobenzamide Hcl (Tigan) 300 Mg Capsule, 300 Mg Oral Three Times A Day Discontinued Social History Social History Problem Response Recorded Date/Time Onset Date Status Hx Psychiatric Problems Yes 03/19/2014 10:36pm Not Applicable Not Applicable Hx Eating Disorder No 03/19/2014 10:36pm Not Applicable Not Applicable Hx Substance Use Disorder No 03/19/2014 10:36pm Not Applicable Not Applicable Hx Depression Yes 03/19/2014 10:36pm Not Applicable Not Applicable Hx Alcohol Use No 03/19/2014 10:36pm Not Applicable Not Applicable Hx Substance Use Treatment No 03/19/2014 10:36pm Not Applicable Not Applicable Hx Physical Abuse No 03/19/2014 10:36pm Not Applicable Not Applicable Smoking Status Start Date Stop Date Never Smoker Hospital Discharge Instructions No hospital discharge instruction information available. Plan of Care Discharge Date 04/25/17 10:39pm Disposition HOME, SELF-CARE Condition at Discharge Stable Instructions/Education Provided Contusion Fall Prevention Forms Provided Work/School Excuse Prescriptions See Medication Section Referrals SOFI BRYAN MD Order Date: As needed Address: [address] [place] [address] [place] [id number] Additional Instructions/Education YOU WERE GIVEN THE FOLLOWING MEDICATIONS IN THE ER TONIGHT- TORADOL IV PHENERGAN IV Ortho: Keep your injured extremity elevated above your heart, use ice packs for 15 to 20 minutes every. Take Motrin 400mg to 600mg every 4-6 hours as needed for pain. Continue to take your prescribed medication as directed by your medical provider. Follow up with the Orthopedic referral physician listed, call next business day to schedule your follow-up appointment. Return to the ER for any shortness of breath, increased pain to injured extremity, discoloration of extremity, decreased circulation to the extremity or any new concerns. Functional Status No functional status information available. Allergies, Adverse Reactions, Alerts Allergen Type Severity Reaction Status Last Updated NSAIDS (Non-Steroidal Anti-Inflamma Adverse Reaction Intermediate STOMACH PAIN Active 05/15/15 Prednisone Allergy Unknown "MAKES ME CRAZY" Active 05/15/15 Sulfamethoxazole Allergy Unknown Active 02/20/16 Trimethoprim Allergy Unknown Active 02/20/16 Ketorolac Allergy Intermediate RASH Active 05/15/15 NSAIDS Allergy Unknown GI BLEED Active 02/07/17 Immunizations No immunization information available. Vital Signs Acute Vital Signs Vital Response Date/Time Height 5 ft 4 in 04/25/2017 8:35pm Weight 175 lb 04/25/2017 8:35pm Body Mass Index 30.0 kg/m^2 04/25/2017 8:35pm Results No relevant diagnostic test, laboratory data and/or discharge summary information available. Procedures Procedure Status Date Provider(s) EGD BIOPSY SINGLE/MULTIPLE Completed 02/08/17 STEVEN SWANSON MD EGD DILATE STRICTURE Completed 02/08/17 STEVEN SWANSON MD DILATE ESOPHAGUS 1/MULT PASS Completed 02/08/17 STEVEN SWANSON MD Computed tomography of brain without radiopaque contrast Active 04/25/17 RAGHAV FLEMING NP Computed tomography of cervical spine without contrast Active 04/25/[address] ADMINISTRATOR Encounters Encounter Location Arrival/Admit Date Discharge/Depart Date Attending Provider Departed Emergency Room [facility] 04/25/17 8:31pm 10:39pm KAMINI BARRIOS MD Registered Surgical Day Care [facility] 02/08/17 6:51am STEVEN SWANSON MD
[2017-05-06] MEDS ORDERED: ONDANSETRON HCL INJ 2 MG/ML VIAL IV STA (05:16)
[2017-05-06] MEDS ORDERED: PANTOPRAZOLE 40 MG 10ML VIAL IV STA (05:18)
[2017-05-06] MEDS ORDERED: SODIUM CHLORIDE 0.9% 1000ML 1,000 ML IV ONE (05:30)
[2017-05-06 05:53] LABS: BASOPHILS # (AUTO) 0.1 (0.0-0.1); BASOPHILS % 0.7 % (0.0-1.0); EOSINOPHILS # (AUTO) 0.5 (0.0-0.4); EOSINOPHILS % 6.6 % (0.0-6.0); HEMATOCRIT 32.7 % (34.2-44.1); HEMOGLOBIN 11.4 g/dL (12.0-16.0); LYMPHOCYTES # (AUTO) 3.1 (1.0-3.2); LYMPHOCYTES % 43.9 % (18.0-39.1); MEAN CORPUSCULAR HEMOGLOBIN 32.8 pg (28-32); MEAN CORPUSCULAR HGB CONC 34.9 g/dL (31-35); MONOCYTES # (AUTO) 0.5 (0.2-0.8); MONOCYTES % 6.6 % (4.4-11.3); NEUTROPHILS % 41.8 % (38.7-80.0); PLATELET COUNT 243 x10e3/uL (140-360); RED BLOOD COUNT 3.48 x10e6/uL (3.6-5.1); RED CELL DISTRIBUTION WIDTH 14.6 % (11.7-14.4)
[2017-05-06 05:57] LABS: BILIRUBIN,URINE NEGATIVE (NEGATIVE); CLARITY,URINE CLEAR (CLEAR); COLOR,URINE YELLOW (YELLOW); KETONES,URINE NEGATIVE (NEGATIVE); LEUKOCYTE ESTERASE ,URINE NEGATIVE (NEGATIVE); NITRITE,URINE NEGATIVE (NEGATIVE); PROTEIN,URINE DIPSTICK NEGATIVE (NEGATIVE); URINE UROBILINOGEN 0.2 mg/dL (0.2 - 1)
[2017-05-06 06:11] LABS: ALANINE AMINOTRANSFERASE 24 IU/L (0-55); ALBUMIN 3.6 g/dL (3.5-5.0); ALBUMIN/GLOBULIN RATIO 0.9 (0.8-2.0); ALKALINE PHOSPHATASE 78 IU/L (40-150); AMYLASE 45 U/L (25-125); ANION GAP 13.8 mmol/L (8-16); BLOOD UREA NITROGEN 6 mg/dL (7-26); BUN/CREATININE RATIO 9 (6-25); CALCIUM 9.5 mg/dL (8.4-10.2); CARBON DIOXIDE 26 mmol/L (22-29); CHLORIDE 101 mmol/L (98-107); CREATININE, SERUM 0.69 mg/dL (0.57-1.11); EST GLOMERULAR FILTRATION RATE > 60 ML/MIN (60-); GLUCOSE 91 mg/dL (74-118); LIPASE 32 U/L (8-78); POTASSIUM 3.8 mmol/L (3.5-5.1); SODIUM 137 mmol/L (136-145)
[2017-05-06 06:27] LABS: BACTERIA,URINE RARE /HPF; EPITHELIAL CELLS,URINE FEW /LPF; RBC,URINE 0-5 /HPF (0-5)
--- NOTE | 2017-05-06 06:35 | Diagnostic Imaging Report ---
ABDOMEN ACUTE SERIES W/PA CXR Clinical history: Abdominal pain Technique: Supine and upright views of the abdomen, PA view of the chest Comparison: 04/17/2016 Findings: Abdomen: Nonobstructive bowel gas pattern with copious stool burden around the colon. No free air. Cholecystectomy. Chest: Low lung volumes accentuate the cardiac silhouette result in mild bibasilar vascular crowding. No effusion or pneumothorax. Impression: Copious stool burden. Signed by: Dr Serena Alarcon MD on 05/06/2017 6:31 AM
== END 2017-05-06 06:27 | disposition left against medical advice (07) ==
LOC: ER 05:06
DX: R10.84 Generalized abdominal pain (principal); R11.2 Nausea with vomiting, unspecified; I10 Essential (primary) hypertension; K58.9 Irritable bowel syndrome, unspecified; F32.9 Major depressive disorder, single episode, unspecified; F41.9 Anxiety disorder, unspecified
CPT/HCPCS: 36415; 74022; 80053; 81001; 82150; 83690; 85025; 93005

== ENCOUNTER 2017-06-26 10:04 | Emergency (ER) | payer OTHER ==
[~2017-06-26] VITALS: Ht 162.6 cm; Wt 86.2 kg
--- OUTSIDE RECORDS SUMMARY | 2017-06-26 10:07 | XMS REPORT | Clinical Summary ---
Author Author [facility] Address Unknown Phone Unavailable Care Team Providers Care Software Engineer Developer Name Role Phone Mike Fernández MD PCP [...] Left upper quadrant pain (Primary Dx) after 06/25/2016 Social History Tobacco Use Types Packs/Day Years Used Date Never Smoker Smokeless Tobacco: Never Used Alcohol Use Drinks/Week oz/Week Comments No Sex Assigned at Date Recorded Not on file Last Filed Vital Signs Vital Sign Reading Time Taken Blood Pressure 146/91 04/10/2017 9:00 AM ADVANCE SCOUT Pulse 77 04/10/2017 9:00 AM ADVANCE SCOUT Temperature 36.8 C (98.2 F) 04/10/2017 7:21 AM ADVANCE SCOUT Respiratory Rate 17 04/10/2017 9:00 AM ADVANCE SCOUT Oxygen Saturation 97% 04/10/2017 9:00 AM ADVANCE SCOUT Inhaled Oxygen - - Concentration Weight 79.4 kg (175 lb) 04/10/2017 7:21 AM ADVANCE SCOUT Height 165.1 cm (5' 5") 04/10/2017 7:21 AM ADVANCE SCOUT Body Mass Index 29.12 04/10/2017 7:21 AM ADVANCE SCOUT Plan of Treatment Health Maintenance Due Date Last Done Comments PAP SMEAR 1991 INFLUENZA VACCINE 09/19/2017 Results * hCG qualitative, urine screen (04/10/2017 9:00 AM) Component Value Ref Range hCG qualitative, urine Negative Negative Comment: The manufacturers stated sensitivity of HcG test for serum is >/=10 mIU/ml and urine is >/=20mIU/ml. Specimen Performing Laboratory Urine [facility] DEPARTMENT OF PATHOLOGY AND GENOMIC MEDICINE [address] [place] [address] * CT Abdomen Pelvis W Contrast (04/10/2017 8:40 AM) Specimen Performing Laboratory [facility] [address] [place] [address] Narrative EXAMINATION:CT ABDOMEN PELVIS W CONTRAST CLINICAL [...] within normal limits. SUMMARY: No acute abnormality. [id number] Procedure Note [facility], Radiology Results Incoming - 04/10/2017 9:18 AM ADVANCE SCOUT EXAMINATION: CT ABDOMEN PELVIS W CONTRAST CLINICAL [...] within normal limits. SUMMARY: No acute abnormality. [facility]-[id number] * Estimated GFR (04/10/2017 7:25 AM) Component [...] and Americans. Specimen Performing Laboratory Plasma specimen [facility] DEPARTMENT OF PATHOLOGY AND [employer] MEDICINE [id number] [place] [address] [place] [address] * CBC with platelet and differential (04/10/2017 [...] (promyelocytes, myelocytes, metamyelocytes) Specimen Performing Laboratory Blood [facility] DEPARTMENT OF PATHOLOGY AND [employer] [facility] [id number] [place] [address] [place] [address] * Creatine kinase, total (CPK) (04/10/2017 7:25 AM) Component Value Ref Range Creatine kinase 106 26 - 192 U/L Specimen Performing Laboratory Plasma specimen [facility] DEPARTMENT PATHOLOGY AND [employer] MEDICINE [address] [place] [address] * Alcohol level, blood (04/10/2017 7:25 AM) Component Value Ref Range Alcohol None Detected mg/dL Comment: Normal None Detected Legal Intoxication in [place] 80 mg/dL (0.08%) - Whole Blood Toxic Concentration 200 mg/dL (0.2%) Potentially Fatal 350 - 500 mg/dL (0.35 - 0.5%) Alcohol percent None Detected % Specimen Performing Laboratory Plasma specimen [facility] DEPARTMENT OF PATHOLOGY AND GENOMIC [facility] [address] [place] [address] * Basic metabolic panel (04/10/2017 7:25 AM) [...] 10.2 mg/dL Specimen Performing Laboratory Plasma specimen [facility] PATHOLOGY AND [facility] [address] [place] [address] * ECG 12 lead (04/10/2017 7:23 AM) Component Value Ref Range Ventricular rate 93 Atrial rate 93 [place] interval 116 QRSD interval 88 QT interval 404 QTC interval 502 P axis 1 57 QRS axis 1 93 T wave axis 57 EKG impression Normal sinus rhythm-Rightward axis-Prolonged QT-Abnormal ECG-In automated comparison with ECG of 21-DEC-2015 19:34,-No significant change was found- Specimen Performing Laboratory [facility] [address] [place] [address] Procedure Note Natalie Antonio DO - 04/10/2017 7:11 AM ADVANCE SCOUT Formatting of this note may be different from the original. Emergency Department Provider Note Location: [facility] ED Patient ID: Mona Wayne is [...] Range Ventricular rate 93 Atrial rate 93 WI interval 116 QRSD interval 88 QT interval [...] within normal limits. SUMMARY: No acute abnormality. [facility]-[id number] Procedures ECG 12 lead Date/Time: 04/10/2017 7:35 AM Performed by: NATALIE ANTONIO Authorized by: NATALIE ANTONIO ECG reviewed by ED Physician in the absence of a member of parliament: yes Interpretation: Interpretation: normal Rate: ECG rate: [...] 0736 Natalie Antonio DO 04/10/17 1340 after 06/25/2016
--- OUTSIDE RECORDS SUMMARY | 2017-06-26 10:07 | XMS REPORT | Continuity of Care Document ---
Author Author [facility] Organization [facility] Address [address] [place] [address] Phone Unavailable Care Team Providers Care Sample Patternmaker Name Role Phone DAILY QIU MD PCP Insurance Providers Guarantor Janay Fleming Address [address] [place] [address] Email [email or web address] Payer [facility] Policy Number [id number] Subscriber's Name Tonio Fleming Relationship 01 Group Number [id number] Group Name [facility] Effective Date 16 Advance Directives Directive Response Recorded Date/Time Does the patient have an advance directive? No 09/21/14 6:45am If yes, is advance directive on file with [facility]? No 02/27/14 1:45am If not on file with [facility] will patient provide a copy? No 09/21/14 6:45am Do you have a Directive to Physician? No 05/06/17 5:05am Do you have a Medical Power of Storage Battery Tester? No 05/06/17 5:05am Do you have an out of hospital Do Not Resuscitate Order? No 05/06/17 5:05am Do you have any special needs we should be aware of? No 05/06/17 5:05am Do you have a support person here with you today? No 05/06/17 5:05am Did patient receive Notice of Privacy Practices? Yes 05/06/17 5:05am Did patient receive patient rights and responsibilities? Yes 05/06/17 5:05am Problems Medical Problem Onset Date Status Abdominal [...] Day [facility]OT[facility] Hyoscyamine Sulfate (Levsin) 0.125 Mg Tablet 2 [...] Mg Oral As Needed Discontinued Hydrocodone Bit/Acetaminophen ([place] 10-325 Tablet) 1 Each Tablet, Discontinued Linzess [...] No 03/19/2014 10:36pm Not Applicable Not Applicable Hospital Discharge Instructions No hospital discharge instruction information available. Plan of Care Discharge Date 05/06/17 6:27am Disposition AGAINST MEDICAL ADVICE Condition at Discharge Stable Forms Provided Work/School Excuse Prescriptions See Medication Section Functional Status No functional status information available. [...] Response Date/Time Height 5 ft 4 in 05/06/2017 5:21am Weight 175 lb 05/06/2017 5:21am Body Mass Index 30.0 kg/m^2 05/06/2017 5:21am Results Laboratory Results Test Name Result Units Flags Reference Collection Date/Time Result Date/ Time Comments White Blood Count 7.13 x10e3/uL 4.8-10.8 05/06/2017 5:50am 05/06/2017 6 :03am Red Blood Count 3.48 x10e6/uL L 3.6-5.1 05/06/2017 5:50am 05/06/2017 6: 03am Hemoglobin 11.4 g/dL L 12.0-16.0 05/06/2017 5:50am 05/06/2017 6:03am Hematocrit 32.7 % L 34.2-44.1 05/06/2017 5:50am 05/06/2017 6:03am Mean Corpuscular Volume 94.0 fL 81-99 05/06/2017 5:50am 05/06/2017 6: 03am Mean Corpuscular Hemoglobin 32.8 pg H 28-32 05/06/2017 5:50am 2017 6:03am Mean Corpuscular Hemoglobin Concent 34.9 g/dL 31-35 05/06/2017 5:50am 05/06/2017 6:03am Red Cell Distribution Width 14.6 % H 11.7-14.4 05/06/2017 5:50am 2017 6:03am Platelet Count 243 x10e3/uL 140-360 05/06/2017 5:50am 05/06/2017 6: 03am Neutrophils (%) (Auto) 41.8 % 38.7-80.0 05/06/2017 5:50am 05/06/2017 6: 03am Lymphocytes (%) (Auto) 43.9 % H 18.0-39.1 05/06/2017 5:50am 05/06/2017 6 :03am Monocytes (%) (Auto) 6.6 % 4.4-11.3 05/06/2017 5:50am 05/06/2017 6: 03am Eosinophils (%) (Auto) 6.6 % H 0.0-6.0 05/06/2017 5:50am 05/06/2017 6: 03am Basophils (%) (Auto) 0.7 % 0.0-1.0 05/06/2017 5:50am 05/06/2017 6:03am IM GRANULOCYTES % 0.4 % 0.0-1.0 05/06/2017 5:50am 05/06/2017 6:03am Neutrophils # (Auto) 3.0 2.1-6.9 05/06/2017 5:50am 05/06/2017 6:03am Lymphocytes # (Auto) 3.1 1.0-3.2 05/06/2017 5:50am 05/06/2017 6:03am Monocytes # (Auto) 0.5 0.2-0.8 05/06/2017 5:50am 05/06/2017 6:03am Eosinophils # (Auto) 0.5 H 0.0-0.4 05/06/2017 5:50am 05/06/2017 6: 03am Basophils # (Auto) 0.1 0.0-0.1 05/06/2017 5:50am 05/06/2017 6:03am Absolute Immature Granulocyte (auto 0.03 x10e3/uL 0-0.1 05/06/2017 5: 50am 05/06/2017 6:03am Urine Color YELLOW YELLOW 05/06/2017 5:53am 05/06/2017 6:02am Urine Clarity CLEAR CLEAR 05/06/2017 5:53am 05/06/2017 6:02am Urine Specific [place] 1.015 1.010-1.025 05/06/2017 5:53am 2017 6:02am Urine pH 7 5 - 7 05/06/2017 5:53am 05/06/2017 6:02am Urine Leukocyte Esterase NEGATIVE NEGATIVE 05/06/2017 5:53am 2017 6:02am Urine Nitrite NEGATIVE NEGATIVE 05/06/2017 5:53am 05/06/2017 6:02am Urine Protein NEGATIVE NEGATIVE 05/06/2017 5:53am 05/06/2017 6:02am Urine Glucose (UA) NEGATIVE NEGATIVE 05/06/2017 5:53am 05/06/2017 6: 02am Urine Ketones NEGATIVE NEGATIVE 05/06/2017 5:53am 05/06/2017 6:02am Urine Urobilinogen 0.2 mg/dL 0.2 - 1 05/06/2017 5:53am 05/06/2017 6: 02am Urine Bilirubin NEGATIVE NEGATIVE 05/06/2017 5:53am 05/06/2017 6: 02am Urine Blood NEGATIVE NEGATIVE 05/06/2017 5:53am 05/06/2017 6:02am Urine WBC 6-10 /HPF H 0-5 05/06/2017 5:53am 05/06/2017 6:27am Urine RBC 0-5 /HPF 0-5 05/06/2017 5:53am 05/06/2017 6:27am Urine Bacteria RARE /HPF NONE 05/06/2017 5:53am 05/06/2017 6:27am Urine Epithelial Cells FEW /LPF NONE 05/06/2017 5:53am 05/06/2017 6: 27am Sodium Level 137 mmol/L 136-145 05/06/2017 5:50am 05/06/2017 6:17am Potassium Level 3.8 mmol/L 3.5-5.1 05/06/2017 5:50am 05/06/2017 6:17am Chloride Level 101 mmol/L 98-107 05/06/2017 5:50am 05/06/2017 6:17am Carbon Dioxide Level 26 mmol/L 22-29 05/06/2017 5:50am 05/06/2017 6: 17am Anion Gap 13.8 mmol/L 8-16 05/06/2017 5:50am 05/06/2017 6:17am Blood Urea Nitrogen 6 mg/dL L 7-05/06/2017 5:50am 05/06/2017 6:17am Creatinine 0.69 mg/dL 0.57-1.11 05/06/2017 5:50am 05/06/2017 6:17am BUN/Creatinine Ratio 9 6-25 05/06/2017 5:50am 05/06/2017 6:17am Estimat Glomerular Filtration Rate > 60 ML/MIN 60- 05/06/2017 5:50am 6:17am Ranges were taken from the National Kidney Disease Education Program and the National Kidney Foundation literature. Reference ranges: 60 or greater: Normal 16-59 (for 3 consecutive months): Chronic kidney disease 15 or less: Kidney failure Glucose Level 91 mg/dL 74-118 05/06/2017 5:50am 05/06/2017 6:17am Calcium Level 9.5 mg/dL 8.4-10.2 05/06/2017 5:50am 05/06/2017 6:17am Total Bilirubin < 0.3 mg/dL 0.2-1.2 05/06/2017 5:50am 05/06/2017 6: 17am Aspartate Amino Transf (AST/SGOT) 23 IU/L 5-34 05/06/2017 5:50am 2017 6:17am Alanine Aminotransferase (ALT/SGPT) 24 IU/L 0-55 05/06/2017 5:50am 6:17am Total Protein 7.4 g/dL 6.5-8.1 05/06/2017 5:50am 05/06/2017 6:17am Albumin 3.6 g/dL 3.5-5.0 05/06/2017 5:50am 05/06/2017 6:17am Globulin 3.8 g/dL H 2.3-3.5 05/06/2017 5:50am 05/06/2017 6:17am Albumin/Globulin Ratio 0.9 0.8-2.0 05/06/2017 5:50am 05/06/2017 6: 17am Alkaline Phosphatase 78 IU/L 40-150 05/06/2017 5:50am 05/06/2017 6: 17am Amylase Level 45 U/L 25-125 05/06/2017 5:50am 05/06/2017 6:17am Lipase 32 U/L 8-78 05/06/2017 5:50am 05/06/2017 6:17am Procedures Procedure Status Date Provider(s) EGD BIOPSY SINGLE/MULTIPLE Completed 02/08/17 STEVEN SWANSON MD EGD DILATE STRICTURE Completed 02/08/17 STEVEN SWANSON MD DILATE ESOPHAGUS 1/MULT PASS Completed 02/08/17 STEVEN SWANSON MD Computed tomography of brain without radiopaque contrast Active 04/25/17 RAGHAV FLEMING LUMBER YARD WORKER Computed tomography of cervical spine without contrast Active 04/25/17 RAGHAV FLEMING LUMBER YARD WORKER Encounters Encounter Location Arrival/Admit Date Discharge/Depart Date Attending Provider Departed Emergency Room [facility] 05/06/17 5:06am 6:27am KAMINI BARRIOS MD Departed Emergency Room [facility] 04/25/17 8:31pm 10:39pm KAMINI BARRIOS MD Registered Surgical Day Care [facility] 02/08/17 6:51am STEVEN SWANSON MD
[2017-06-26] MEDS ORDERED: MORPHINE SULFATE INJ 10 MG/ML IV ONE (10:15)
[2017-06-26] MEDS ORDERED: ONDANSETRON HCL INJ 2 MG/ML VIAL IV STA (10:58)
[2017-06-26 12:22] VITALS: BP 140/70
[2017-06-26] MEDS ORDERED: PANTOPRAZOLE SO40 MG PO (15:50)
[2017-06-26] MEDS ORDERED: ZOFRAN ODT4 MG PO (15:51)
== END 2017-06-26 12:27 | disposition home or self-care (01) ==
LOC: FSED 10:04
DX: R10.10 Upper abdominal pain, unspecified (principal); K58.9 Irritable bowel syndrome, unspecified
CPT/HCPCS: 74176; 80048; 80076; 81003; 85025; 99284; J2270; J2405

== ENCOUNTER → 2017-06-27 | Day surgery (SDC) | payer OTHER ==
[~2017-06-27] MED LIST changes: +KETAMINE HCL INJ 50 MG/ML 10 ML VIAL ONE; +LIDOCAINE HCL 2% LOCAL INJ 5 ML SDV VIAL INJ ONE; +MIDAZOLAM HCL 2 MG/2 ML VIAL ONE; +PANTOPRAZOLE 40 MG 10ML VIAL ONE; +PANTOPRAZOLE SO40 MG PO; +PROPOFOL IV EMULSION 10 MG/ML 20 ML VIAL ONE; +ZOFRAN ODT4 MG PO
--- OUTSIDE RECORDS SUMMARY | 2017-06-27 13:09 | XMS REPORT | Continuity of Care Document ---
Author Author [facility] Organization [facility] Address [address] [address] Phone Unavailable Care Team Providers Care Chemical Processor Name Role Phone DAILY QIU MD PCP Insurance Providers Guarantor Janay Fleming Address [address] [place] [address] Email [email or web address] Payer [employer] [address] Policy Number [id number] Subscriber's Name Tonio Fleming Relationship 01 Group Number [id number] Group Name [facility] Effective Date 16 Advance Directives Directive Response Recorded Date/Time Does the patient have an advance directive? No 09/21/14 6:45am If yes, is advance directive on file with [facility]? No 02/27/14 1:45am If not on file with [facility] will patient provide a copy? No 09/21/14 6:45am Do you have a Directive to Physician? No 06/26/17 11:01am Do you have a Medical Power of Build Manager? No 06/26/17 11:01am Do you have an out of hospital Do Not Resuscitate Order? No 06/26/17 11:01am Do you have any special needs we should be aware of? No 06/26/17 11:01am Do you have a support person here with you today? No 06/26/17 11:01am Did patient receive Notice of Privacy Practices? Yes 06/26/17 11:01am Did patient receive patient rights and responsibilities? Yes 06/26/17 11:01am Problems Medical Problem Onset Date Status Abdominal [...] Day [facility]OTONIX [facility] Hyoscyamine Sulfate (Levsin) 0.125 Mg Tablet [...] Mg Oral As Needed Discontinued Hydrocodone Bit/Acetaminophen ([employer] 10-325 Tablet) 1 Each Tablet, Discontinued Linzess [...] Applicable Smoking Status Start Date Stop Date Current every day smoker Hospital Discharge Instructions No hospital discharge instruction information available. Plan of Care Discharge Date 06/26/17 12:27pm Disposition HOME, SELF-CARE Condition at Discharge Stable Instructions/Education Provided Abdominal Pain - Adult Forms Provided Work/School Excuse Prescriptions See Medication Section Referrals DAILY QIU MD Address: [address] [place] [id number] Additional Instructions/Education FOLLOW UP WITH PRIMARY CARE DOCTOR TAKE MEDICATIONS DIRECTED Functional Status No functional status information available. [...] Signs Acute Vital Signs Vital Response Date/Time Temperature (Fahrenheit) 98.4 degrees F (97.6 - 99.5) 06/26/2017 12:22pm Pulse Pulse Rate (adult) 99 bpm (60 - 90) 06/26/2017 12:22pm Respiratory Rate 18 bpm (12 - 24) 06/26/2017 12:22pm Blood Pressure 140/70 mm Hg 06/26/2017 12:22pm Height 5 ft 4 in 06/26/2017 10:05am Weight 190 lb 06/26/2017 10:05am Body Mass Index 32.6 kg/m^2 06/26/2017 10:05am Results Laboratory Results Test Name Result Units [...] CLEAR 05/06/2017 5:53am 05/06/2017 6:02am Urine Specific [place] 1.015 1.010-1.025 05/06/2017 5:53am 2017 6:02am Urine [...] 05/06/2017 6:17am Carbon Dioxide Level 26 mmol/L 22-05/06/2017 5:50am 05/06/2017 6: 17am Anion Gap 13.8 mmol/L 8-05/06/2017 5:50am 05/06/2017 6:17am Blood Urea Nitrogen 6 mg/dL L 7-05/06/2017 5:50am 05/06/2017 6:17am Creatinine 0.69 mg/dL 0.57-1.11 05/06/2017 5:50am 05/06/2017 6:17am BUN/Creatinine Ratio 9 6-05/06/2017 5:50am 05/06/2017 6:17am Estimat Glomerular Filtration Rate [...] 1/MULT PASS Completed 02/08/17 STEVEN SWANSON MD EMERGENCY DEPT VISIT Completed 05/06/17 Computed tomography of brain without radiopaque contrast Active 04/25/17 RAGHAV FLEMING NP Computed tomography of cervical spine without contrast Active 04/25/17 RAGHAV FLEMING GENERAL ASSIGNMENT REPORTER Encounters Encounter Location Arrival/Admit Date Discharge/Depart Date Attending Provider Departed Emergency Room [facility] 06/26/17 10:04am 06/26 12:27pm RHEA NEWTON MD Departed Emergency Room [facility] 05/06/17 5:06am 6:27am KAMINI BARRIOS MD Departed Emergency Room [facility] 04/25/17 8:31pm 10:39pm KAMINI BARRIOS MD Registered Surgical Day Care [facility] 02/08/17 6:51am STEVEN SWANSON MD
--- OUTSIDE RECORDS SUMMARY | 2017-06-27 13:09 | XMS REPORT | Clinical Summary ---
Author Author [facility] Organization [facility] Address Unknown Phone Unavailable Care Team Providers Care Gamma Operator Name Role Phone Mike Fernández MD PCP [...] Left upper quadrant pain (Primary Dx) after 06/26/2016 Social History Tobacco Use Types Packs/Day Years Used Date Never Smoker Smokeless Tobacco: Never Used Alcohol Use Drinks/Week oz/Week Comments No Sex Assigned at Date Recorded Not on file Last Filed Vital Signs Vital Sign Reading Time Taken Blood Pressure 146/91 04/10/2017 9:00 AM MANAGER OF SALES Pulse 77 04/10/2017 9:00 AM MANAGER OF SALES Temperature 36.8 C (98.2 F) 04/10/2017 7:21 AM MANAGER OF SALES Respiratory Rate 17 04/10/2017 9:00 AM MANAGER OF SALES Oxygen Saturation 97% 04/10/2017 9:00 AM MANAGER OF SALES Inhaled Oxygen - - Concentration Weight 79.4 kg (175 lb) 04/10/2017 7:21 AM MANAGER OF SALES Height 165.1 cm (5' 5") 04/10/2017 7:21 AM MANAGER OF SALES Body Mass Index 29.12 04/10/2017 7:21 AM MANAGER OF SALES Plan of Treatment Health Maintenance Due Date Last Done Comments PAP SMEAR 1991 INFLUENZA VACCINE 09/19/2017 Results * hCG qualitative, urine screen (04/10/2017 9:00 AM) Component Value Ref Range hCG qualitative, urine Negative Negative Comment: The manufacturers stated sensitivity of HcG test for serum is >/=10 mIU/ml and urine is >/=20mIU/ml. Specimen Performing Laboratory Urine [facility] DEPARTMENT OF PATHOLOGY AND GENOMIC MEDICINE [address] [place] [address] * CT Abdomen Pelvis W Contrast (04/10/2017 8:40 AM) Specimen Performing Laboratory [facility] [address] [place] [address] Narrative EXAMINATION:CT ABDOMEN PELVIS W CONTRAST CLINICAL [...] within normal limits. SUMMARY: No acute abnormality. [facility]-[id number] Procedure Note [facility], Radiology Results Incoming - 04/10/2017 9:18 AM MANAGER OF SALES EXAMINATION: CT ABDOMEN PELVIS W CONTRAST CLINICAL [...] within normal limits. SUMMARY: No acute abnormality. [facility]-[id number] * Estimated GFR (04/10/2017 7:25 AM) Component [...] and Americans. Specimen Performing Laboratory Plasma specimen [facility] DEPARTMENT OF PATHOLOGY AND [employer] MEDICINE [id number] [place] [address] [place] [address] * CBC with platelet and differential (04/10/2017 [...] (promyelocytes, myelocytes, metamyelocytes) Specimen Performing Laboratory Blood [facility] DEPARTMENT OF PATHOLOGY AND [employer] [facility] [id number] [place] [address] [place] [address] * Creatine kinase, total (CPK) (04/10/2017 7:25 AM) Component Value Ref Range Creatine kinase 106 26 - 192 U/L Specimen Performing Laboratory Plasma specimen [facility] DEPARTMENT PATHOLOGY AND [employer] MEDICINE [address] [place] [address] * Alcohol level, blood (04/10/2017 7:25 AM) Component Value Ref Range Alcohol None Detected mg/dL Comment: Normal None Detected Legal Intoxication in [place] 80 mg/dL (0.08%) - Whole Blood Toxic Concentration 200 mg/dL (0.2%) Potentially Fatal 350 - 500 mg/dL (0.35 - 0.5%) Alcohol percent None Detected % Specimen Performing Laboratory Plasma specimen [facility] DEPARTMENT OF PATHOLOGY AND GENOMIC [facility] [address] [place] [address] * Basic metabolic panel (04/10/2017 7:25 AM) [...] 10.2 mg/dL Specimen Performing Laboratory Plasma specimen [facility] PATHOLOGY AND [facility] [address] [place] [address] * ECG 12 lead (04/10/2017 7:23 AM) Component Value Ref Range Ventricular rate 93 Atrial rate 93 PA interval 116 QRSD interval 88 QT interval 404 QTC interval 502 P axis 1 57 QRS axis 1 93 T wave axis 57 EKG impression Normal sinus rhythm-Rightward axis-Prolonged QT-Abnormal ECG-In automated comparison with ECG of 21-DEC-2015 19:34,-No significant change was found- Specimen Performing Laboratory [facility] [address] [place] [address] Procedure Note Natalie Antonio DO - 04/10/2017 7:11 AM MANAGER OF SALES Formatting of this note may be different from the original. Emergency Department Provider Note Location: [facility] ED Patient ID: Mona Wayne is [...] Range Ventricular rate 93 Atrial rate 93 PA interval 116 QRSD interval 88 QT interval [...] within normal limits. SUMMARY: No acute abnormality. [facility]-[id number] Procedures ECG 12 lead Date/Time: 04/10/2017 7:35 AM Performed by: NATALIE ANTONIO Authorized by: NATALIE ANTONIO ECG reviewed by ED Physician in the absence of a nps: yes Interpretation: Interpretation: normal Rate: ECG rate: [...] 0736 Natalie Antonio DO 04/10/17 1340 after 06/26/2016
--- NOTE | 2017-06-27 14:59 | Operative Report ---
DATE OF PROCEDURE: June 27, 2017 REFERRING PHYSICIAN: Dr. Daily Chris. PROCEDURE PERFORMED: Esophagogastroduodenoscopy with biopsies and esophageal dilatation. INDICATIONS FOR ESOPHAGOGASTRODUODENOSCOPY: Dysphagia to solids, heartburn indigestion, nausea. MEDICATION: Patient was done under MAC. Please see anesthesiologist's note. PROCEDURE: With the patient in the left lateral decubitus position, the flexible fiberoptic Olympus gastroscope was introduced into the esophagus under direct visualization without any difficulty. There was some patchy erythema noted in the distal esophagus. A mild stricture was noted at the GE junction, and that was dilated to size 52-[place] Banda. The scope was then advanced with ease into the stomach, and mucosa overlying the antrum and the body revealed some patchy erythema and low-grade to moderate edema, and biopsies were obtained and sent to stain for H. pylori. A minute hyperplastic-appearing polyp was noted in the proximal body along the anterior wall, and that was partially excised with the cold biopsy forceps. The pylorus was of normal contour and shape, was intubated with ease, and the scope was advanced all the way to the 2nd portion of the duodenum. The scope was then withdrawn slowly. Mucosa overlying the proximal 2nd portion and the duodenal bulb appeared to be within normal limits. The scope was then withdrawn back into the stomach and retroflexed, and mucosa overlying the fundus and the cardia appeared to be within normal limits. The scope was then straightened out. The stomach was decompressed. The scope was subsequently withdrawn. Patient tolerated the procedure well. IMPRESSION: 1. Distal esophagitis. 2. Esophageal stricture at gastroesophageal junction dilated to size 52-[place] Banda. 3. Gastric polyp, body, partially excised with the cold biopsy forceps. 4. Gastritis biopsied. Biopsies sent to stain for H. pylori. PLAN: Follow up histology. Continue Nexium 40 mg 1 p.o. a.c. b.i.d. Add Carafate 1 gram p.o. a.c. t.i.d. and nightly. Job#: [id number] EV cc:DAILY CHRIS MD
== END | disposition home or self-care (01) ==
LOC: OR 13:06
PROVIDERS: ATTEND Internal Medicine Gastroenterology
DX: K22.2 Esophageal obstruction (principal); K31.7 Polyp of stomach and duodenum; K29.70 Gastritis, unspecified, without bleeding; K20.9 Esophagitis, unspecified; I10 Essential (primary) hypertension; F32.9 Major depressive disorder, single episode, unspecified; Z01.810 Encounter for preprocedural cardiovascular examination; Z68.35 Body mass index [BMI] 35.0-35.9, adult
CPT/HCPCS: 43239; 43450; 93005; J2001; J2250

== ENCOUNTER 2017-07-03 14:40 | Emergency (ER) | payer OTHER ==
[~2017-07-03] VITALS: Ht 162.6 cm; Wt 86.2 kg
[~2017-07-03 14:40] MED LIST changes: -KETAMINE HCL INJ 50 MG/ML 10 ML VIAL ONE; -LIDOCAINE HCL 2% LOCAL INJ 5 ML SDV VIAL INJ ONE; -MIDAZOLAM HCL 2 MG/2 ML VIAL ONE; -PANTOPRAZOLE 40 MG 10ML VIAL ONE; -PROPOFOL IV EMULSION 10 MG/ML 20 ML VIAL ONE
--- OUTSIDE RECORDS SUMMARY | 2017-07-03 14:43 | XMS REPORT | Clinical Summary ---
Author Author [facility] Organization [facility] Address Unknown Phone Unavailable Care Team Providers Care Operational Intelligence Officer Name Role Phone Mike Fernández MD PCP [...] 04/10/2017 Emergency Emergency Medicine Paco, Natalie Porras DO Left upper quadrant pain (Primary Dx) after 07/02/2016 Social History Tobacco Use Types Packs/Day Years Used Date Never Smoker Smokeless Tobacco: Never Used Alcohol Use Drinks/Week oz/Week Comments No Sex Assigned at Date Recorded Not on file Last Filed Vital Signs Vital Sign Reading Time Taken Blood Pressure 146/91 04/10/2017 9:00 AM COLLISION REPAIR TECHNICIAN Pulse 77 04/10/2017 9:00 AM COLLISION REPAIR TECHNICIAN Temperature 36.8 C (98.2 F) 04/10/2017 7:21 AM COLLISION REPAIR TECHNICIAN Respiratory Rate 17 04/10/2017 9:00 AM COLLISION REPAIR TECHNICIAN Oxygen Saturation 97% 04/10/2017 9:00 AM COLLISION REPAIR TECHNICIAN Inhaled Oxygen - - Concentration Weight 79.4 kg (175 lb) 04/10/2017 7:21 AM COLLISION REPAIR TECHNICIAN Height 165.1 cm (5' 5") 04/10/2017 7:21 AM COLLISION REPAIR TECHNICIAN Body Mass Index 29.12 04/10/2017 7:21 AM COLLISION REPAIR TECHNICIAN Plan of Treatment Health Maintenance Due Date Last Done Comments PAP SMEAR 1991 INFLUENZA VACCINE 09/19/2017 Results * hCG qualitative, urine screen (04/10/2017 9:00 AM) Component Value Ref Range hCG qualitative, urine Negative Negative Comment: The manufacturers stated sensitivity of HcG test for serum is >/=10 mIU/ml and urine is >/=20mIU/ml. Specimen Performing Laboratory Urine [facility] DEPARTMENT OF PATHOLOGY AND GENOMIC MEDICINE [address] [place] [address] * CT Abdomen Pelvis W Contrast (04/10/2017 8:40 AM) Specimen Performing Laboratory [facility] [address] [place] [address] Narrative EXAMINATION:CT ABDOMEN PELVIS W CONTRAST CLINICAL [...] within normal limits. SUMMARY: No acute abnormality. [facility]-[id number] Procedure Note [facility], Radiology Results Incoming - 04/10/2017 9:18 AM COLLISION REPAIR TECHNICIAN EXAMINATION: CT ABDOMEN PELVIS W CONTRAST CLINICAL [...] within normal limits. SUMMARY: No acute abnormality. [facility]-[id number] * Estimated GFR (04/10/2017 7:25 AM) Component [...] and Americans. Specimen Performing Laboratory Plasma specimen [facility] DEPARTMENT OF PATHOLOGY AND [facility] [id number] [place] [address] [place] [address] * CBC with platelet and differential (04/10/2017 [...] (promyelocytes, myelocytes, metamyelocytes) Specimen Performing Laboratory Blood [facility] DEPARTMENT OF PATHOLOGY AND [employer] [id number] [place] [address] [place] [address] * Creatine kinase, total (CPK) (04/10/2017 7:25 AM) Component Value Ref Range Creatine kinase 106 26 - 192 U/L Specimen Performing Laboratory Plasma specimen [facility] DEPARTMENT PATHOLOGY AND [facility] [address] [place] [address] * Alcohol level, blood (04/10/2017 7:25 AM) Component Value Ref Range Alcohol None Detected mg/dL Comment: Normal None Detected Legal Intoxication in [place] 80 mg/dL (0.08%) - Whole Blood Toxic Concentration 200 mg/dL (0.2%) Potentially Fatal 350 - 500 mg/dL (0.35 - 0.5%) Alcohol percent None Detected % Specimen Performing Laboratory Plasma specimen [facility] DEPARTMENT OF PATHOLOGY AND GENOMIC [facility] [address] [place] [address] * Basic metabolic panel (04/10/2017 7:25 AM) [...] 10.2 mg/dL Specimen Performing Laboratory Plasma specimen [facility] PATHOLOGY AND [facility] [address] [place] [address] * ECG 12 lead (04/10/2017 7:23 AM) Component Value Ref Range Ventricular rate 93 Atrial rate 93 LA interval 116 QRSD interval 88 QT interval 404 QTC interval 502 P axis 1 57 QRS axis 1 93 T wave axis 57 EKG impression Normal sinus rhythm-Rightward axis-Prolonged QT-Abnormal ECG-In automated comparison with ECG of 21-DEC-2015 19:34,-No significant change was found- Specimen Performing Laboratory [facility] [address] [place] [address] Procedure Note Natalie Antonio DO - 04/10/2017 7:11 AM COLLISION REPAIR TECHNICIAN Formatting of this note may be different from the original. Emergency Department Provider Note Location: [facility] ED Patient ID: Mona [...] Range Ventricular rate 93 Atrial rate 93 LA interval 116 QRSD interval 88 QT interval [...] within normal limits. SUMMARY: No acute abnormality. [facility]-[id number] Procedures ECG 12 lead Date/Time: 04/10/2017 7:35 AM Performed by: NATALIE ANTONIO Authorized by: NATALIE ANTONIO ECG reviewed by ED Physician in the absence of a scrap preparer: yes Interpretation: Interpretation: normal Rate: ECG rate: [...] 0736 Natalie Antonio DO 04/10/17 1340 after 07/02/2016
[2017-07-03] MEDS ORDERED: DICYCLOMINE HCL 20 MG/2 ML VIAL IM NR (17:00)
[2017-07-03] MEDS ORDERED: ONDANSETRON HCL INJ 2 MG/ML VIAL IV NR (17:00)
[2017-07-03 17:15] LABS: BASOPHILS % 0.4 % (0.0-1.0); EOSINOPHILS # (AUTO) 0.2 (0.0-0.4); EOSINOPHILS % 2.2 % (0.0-6.0); HEMATOCRIT 33.9 % (34.2-44.1); LYMPHOCYTES # (AUTO) 3.5 (1.0-3.2); LYMPHOCYTES % 35.3 % (18.0-39.1); MEAN CORPUSCULAR HEMOGLOBIN 32.1 pg (28-32); MEAN CORPUSCULAR HGB CONC 35.4 g/dL (31-35); MEAN CORPUSCULAR VOLUME 90.6 fL (81-99); MONOCYTES # (AUTO) 0.6 (0.2-0.8); MONOCYTES % 5.5 % (4.4-11.3); NEUTROPHILS # (AUTO) 5.6 (2.1-6.9); NEUTROPHILS % 56.3 % (38.7-80.0); PLATELET COUNT 231 x10e3/uL (140-360); RED BLOOD COUNT 3.74 x10e6/uL (3.6-5.1); RED CELL DISTRIBUTION WIDTH 14.1 % (11.7-14.4)
[2017-07-03] MEDS ORDERED: ONDANSETRON HCL 4 MG ORAL DISINTEGRATING TAB ONE (17:15)
[2017-07-03] MEDS ORDERED: SODIUM CHLORIDE 0.9% 1000ML 1,000 ML IV ONE (17:15)
[2017-07-03 17:32] LABS: ALANINE AMINOTRANSFERASE 33 IU/L (0-55); ALBUMIN/GLOBULIN RATIO 0.9 (0.8-2.0); ALKALINE PHOSPHATASE 94 IU/L (40-150); ANION GAP 16.1 mmol/L (8-16); BLOOD UREA NITROGEN 9 mg/dL (7-26); BUN/CREATININE RATIO 11 (6-25); CALCIUM 9.3 mg/dL (8.4-10.2); CARBON DIOXIDE 23 mmol/L (22-29); CHLORIDE 101 mmol/L (98-107); CREATININE, SERUM 0.81 mg/dL (0.57-1.11); EST GLOMERULAR FILTRATION RATE > 60 ML/MIN (60-); GLUCOSE 87 mg/dL (74-118); POTASSIUM 3.1 mmol/L (3.5-5.1); SODIUM 137 mmol/L (136-145)
[2017-07-03 17:39] LABS: AMPHETAMINES SCREEN,URINE NEGATIVE (NEGATIVE); CLARITY,URINE CLEAR (CLEAR); COLOR,URINE YELLOW (YELLOW); KETONES,URINE NEGATIVE (NEGATIVE); LEUKOCYTE ESTERASE ,URINE NEGATIVE (NEGATIVE); NITRITE,URINE NEGATIVE (NEGATIVE); PHENCYCLIDINE SCREEN,URINE NEGATIVE (NEGATIVE); PROTEIN,URINE DIPSTICK 1+ (NEGATIVE)
[2017-07-03 17:40] LABS: BENZODIAZEPINES SCREEN,URINE POSITIVE (NEGATIVE); BILIRUBIN,URINE NEGATIVE (NEGATIVE); URINE UROBILINOGEN 0.2 mg/dL (0.2 - 1)
[2017-07-03 17:52] LABS: EPITHELIAL CELLS,URINE FEW /LPF; MUCUS,URINE MODERATE (RARE); RBC,URINE 0-5 /HPF (0-5); WBC,URINE (MAN) 0-5 /HPF (0-5)
[2017-07-03] MEDS ORDERED: DIATRIZOATE MEGL/DIATRIZOA SOD 30 ML BTL PO ONE (17:54)
[2017-07-03] MEDS ORDERED: ONDANSETRON HCL 4 MG ORAL DISINTEGRATING TAB SL NR (18:15)
--- NOTE | 2017-07-03 19:45 | Diagnostic Imaging Report ---
EXAMINATION: Head CT HISTORY: Fever and chills, found unresponsive COMPARISON: Head CT (04/25/2017 TECHNIQUE: Multidetector axial images were obtained without contrast from the foramen magnum to the vertex . The images were reconstructed using brain and bone algorithms. Thin section brain images were reformatted into coronal and sagittal planes. Intravenous contrast: None. Motion/streaking artifact limits the evaluation of the skull base and posterior cranial fossa as well as the mid third of the head. FINDINGS: Parenchyma: 1. No abnormal densities. 2. No mass or hemorrhage. No CT evidence of acute territorial vascular insult. Extra-axial spaces:No abnormal density. No extra-axial fluid collections Brain volume: Normal for age. Ventricles: No hydrocephalus or displacement. Arteries: No density suggestive of thrombus. Dural sinuses: No abnormal density. Extra-axial spaces: No abnormal density. Foramen magnum: No mass, Chiari malformation, or basilar invagination. Sella: No obvious mass. Paranasal/mastoid sinuses: Imaged portions unremarkable. Skull/Scalp: No lytic or blastic lesions. No fractures. IMPRESSION: Mildly suboptimal study due to motion, grossly no acute intracranial abnormalities, particularly no mass, hemorrhage, hydrocephalus or acute territorial cortical infarct. Signed by: Dr. Emma Murry M.D. on 07/03/2017 7:42 PM
--- NOTE | 2017-07-03 20:26 | Diagnostic Imaging Report ---
HUMERUS RIGHT 2+VIEWS - 3 views HISTORY: IV contrast extravasation. COMPARISON: None available. FINDINGS: Bones: No acute displaced fracture. Osseous alignment is within normal limits. Joints: The joint spaces are well-maintained. Soft tissues: Large volume of extravasated contrast within the mid to distal arm. IMPRESSION: Large volume of extravasated intravenous contrast within the mid to distal arm. Signed by: Dr. Davy Rahman M.D. on 07/03/2017 8:23 PM
--- NOTE | 2017-07-03 20:38 | Diagnostic Imaging Report ---
EXAM: CT Abdomen and Pelvis WITHOUT contrast INDICATION: Abdominal pain, fever and chills. COMPARISON: None. TECHNIQUE: Abdomen and pelvis were scanned utilizing a multidetector helical scanner from the lung base to the pubic symphysis without administration of IV contrast. Absence of intravenous contrast decreases sensitivity for detection of focal lesions and vascular pathology. Coronal and sagittal reformations were obtained. Routine protocol was performed. IV CONTRAST: None. ORAL CONTRAST: Gastrografin and water mixed. RADIATION DOSE: Total DLP: 817.77 mGy*cm Estimated effective dose: (DLP x 0.015 x size factor) mSv COMPLICATIONS: Extravasation of approximately 100 cc of intravenous contrast into the soft tissues of the right forearm. Patient evaluated by Dr. Echevarria, on-site radiologist at the time of the examination who spoke with the patient. Patient transferred to the ER with instructions. Interpreting radiologist not able to evaluate patient. FINDINGS: LINES and TUBES: None. LOWER THORAX: Bibasilar dependent atelectasis. HEPATOBILIARY: Diffuse low attenuation of the hepatic parenchyma consistent with steatosis. No focal hepatic lesions. No biliary ductal dilation. GALLBLADDER: No radio-opaque stones or sludge. No wall thickening. SPLEEN: No splenomegaly. PANCREAS: No focal masses or ductal dilatation. ADRENALS: No adrenal nodules KIDNEYS/URETERS: No hydronephrosis. No cystic or solid mass lesions. No stones. GI TRACT: No abnormal distention, wall thickening, or evidence of bowel obstruction. Appendix is normal. PELVIC ORGANS/BLADDER: Parra catheter within the urinary bladder which also contains air bubbles in its nondependent portion. Status post hysterectomy. LYMPH NODES: No lymphadenopathy. VESSELS: Minimal atherosclerotic calcifications of the abdominal aorta without aneurysmal dilatation. PERITONEUM / RETROPERITONEUM: No free air or fluid. BONES: No acute abnormality. SOFT TISSUES: Bilateral small fat-containing inguinal hernias. Tiny fat-containing superior ventral hernia with mild surrounding fat stranding. Tiny anterior defects with overlying stranding of the subcutaneous fat in the midline supraumbilical region. IMPRESSION: 1. No acute abdominal pelvic abnormality. 2. Hepatic steatosis. 3. Intravenous contrast extravasation. Patient transferred back to the emergency department for evaluation. Signed by: Dr. Davy Rahman M.D. on 07/03/2017 8:35 PM
[2017-07-03] MEDS ORDERED: SODIUM CHLORIDE 0.9% 50ML 50 ML ONE (22:35)
[2017-07-03] MEDS ORDERED: IOPAMIDOL 370 MG/ML 200 ML INFUS..BTL INJ ONE (22:35)
== END 2017-07-03 22:07 | disposition left against medical advice (07) ==
LOC: ER 14:40
CPT/HCPCS: 36415; 51700; 70450; 74176; 80053; 80307; 81001; 84702; 85025; 99284; J0500; J7030; Q9967

== ENCOUNTER 2017-11-08 05:22 | Emergency (ER) | payer OTHER ==
[~2017-11-08] VITALS: Ht 162.6 cm; Wt 86.2 kg
[~2017-11-08 05:22] MED LIST changes: +CARAFATE1 GM/10 ML PO; +ZOFRAN ODT4 MG SL
[2017-11-08 06:07] LABS: CLARITY,URINE SL CLOUDY (CLEAR); COLOR,URINE YELLOW (YELLOW); KETONES,URINE NEGATIVE (NEGATIVE); NITRITE,URINE NEGATIVE (NEGATIVE); PROTEIN,URINE DIPSTICK NEGATIVE (NEGATIVE); URINE UROBILINOGEN 0.2 mg/dL (0.2 - 1)
[2017-11-08 06:08] LABS: BILIRUBIN,URINE NEGATIVE (NEGATIVE); LEUKOCYTE ESTERASE ,URINE TRACE (NEGATIVE)
[2017-11-08 06:20] LABS: BACTERIA,URINE RARE /HPF; EPITHELIAL CELLS,URINE FEW /LPF
[2017-11-08] MEDS ORDERED: ONDANSETRON HCL 4 MG ORAL DISINTEGRATING TAB PO ONE (06:30)
--- NOTE | 2017-11-08 06:34 | Diagnostic Imaging Report ---
[facility] W/CXR Comparison: 08/22/2014 chest x-ray Clinical history: Right rib pain Findings: Mild motion artifact. There is an expansile lesion involving the posterior right eighth rib at the costovertebral junction. No acute displaced fracture. Stable appearance of the heart, mediastinum, lungs, and pleural spaces. Impression: 1. No acute bony abnormality 2. 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 Signed by: Dr Serena Alarcon MD on 11/08/2017 6:30 AM
[2017-11-08 06:52] VITALS: BP 123/75
== END 2017-11-08 06:54 | disposition home or self-care (01) ==
LOC: ER 05:22
DX: R07.89 Other chest pain (principal)
CPT/HCPCS: 71101; 81001; 93005; 99283

== ENCOUNTER 2019-09-25 10:08 | Emergency (ER) | payer OTHER ==
[~2019-09-25] VITALS: Ht 162.6 cm; Wt 92.3 kg
[2019-09-25] MEDS ORDERED: MORPHINE SULFATE INJ 4 MG/ML INJ 1ML IV STA (10:34)
[2019-09-25] MEDS ORDERED: DICYCLOMINE HCL 20 MG/2 ML VIAL IM ONE ×2 (10:45→11:07)
[2019-09-25] MEDS ORDERED: PROMETHAZINE 12.5MG/ NACL 0.9% 12.5 MG/50 ML BAG IV ONE ×2 (10:45→12:15)
[2019-09-25] MEDS ORDERED: MORPHINE SULFATE INJ 4 MG/ML INJ 1ML ONE (11:07)
[2019-09-25] MEDS ORDERED: PROMETHAZINE HCL (IM) 25 MG/ML VIAL IM ONE ×2 (11:07→12:13)
[2019-09-25] MEDS ORDERED: SODIUM CHLORIDE 0.9% 50ML 50 ML ONE ×2 (11:07→12:13)
--- NOTE | 2019-09-25 11:46 | Diagnostic Imaging Report ---
CT of the abdomen and pelvis, without contrast. History: Abdominal pain. Comparison: CT abdomen/pelvis with contrast from 07/03/2017. Technique: Multidetector CT scanning of the abdomen and pelvis was performed from the level of the lung bases to the inferior pubic rami without the use of contrast material. Coronal and sagittal multiplanar reformations were obtained. RADIATION DOSE: Total DLP: 742.20 mGy*cm Dose modulation, iterative reconstruction, and/or weight based adjustment of the mA/kV was utilized to reduce the radiation dose to as low as reasonably achievable. FINDINGS: Stable pulmonary micronodules identified within the left lung base, unchanged in appearance from the prior examination from 07/03/2017 suggesting a benign etiology. The visualized intrathoracic contents are otherwise unremarkable. The liver appears enlarged and diffusely decreased in attenuation suggestive of fatty infiltration. No focal hepatic abnormality is identified on this noncontrast examination. The gallbladder is surgically absent. There is no biliary ductal dilatation. The stomach, spleen, pancreas, and bilateral adrenal glands demonstrate unremarkable noncontrast appearance. Incidentally noted is a splenule adjacent to the spleen. The kidneys are normal in size and location. There is no evidence for nephrolithiasis or hydronephrosis. No ureteral stone or dilatation is appreciated. The urinary bladder demonstrates no significant abnormalities. The uterus is surgically absent. No abnormal adnexal masses are identified. The abdominal aorta is normal course and caliber. The IVC is normal in caliber. Please note evaluation of the bowel is limited without the use of enteric contrast material. The visualized loops of small and large bowel demonstrate no evidence of obstruction or inflammation. The appendix is visualized and appears unremarkable. There is no ascites or intraperitoneal free air. No abnormally enlarged lymph nodes are identified within the abdomen and pelvis. There are small bilateral fat-containing inguinal hernias present. The osseous structures demonstrate no evidence for acute fracture or destructive process. The extraperitoneal soft tissues are unremarkable. IMPRESSION: No acute abdominopelvic process identified to correlate with the patient's abdominal pain. CT findings suggestive of hepatic steatosis. Status post cholecystectomy. Signed by: Dr. Kashif Lopez MD on 09/25/2019 11:42 AM
[2019-09-25] MEDS ORDERED: MORPHINE SULFATE 2 MG/ML SYR 1ML IV STA (12:06)
[2019-09-25 12:30] VITALS: BP 122/61
--- NOTE | 2019-09-25 12:50 | Emergency Department Note ---
History of Present Illnes History of Present Illness Chief Complaint: Abdominal Complaints History of Present Illness This is a 49 year old female Chief Complaint Comment Reports that since 1900 last night she has had LUQ and LLQ abd pain and cramping with N/V. Pt states that she has a hx of IBS but this pain is different. Pt has abd bloating and is still able to use the restroom but it hurts to push or cry. Pt denies diarrhea. . Historian: Patient Arrival Mode: Car Onset (how long ago): day(s) (2) Location: generalized Quality: cramping Radiation: Denies non-radiation, Denies back, Denies neck, Denies extremity, Denies abdomen, Denies periumbilical, Denies flank, Denies proximal, Denies distal, Denies other Severity: moderate Onset quality: gradual Duration (how long): day(s) (1) Timing of current episode: intermittent Progression: waxing and waning Chronicity: new Context: Reports recent illness; Denies recent surgery, Denies recent immobilization, Denies recent travel, Denies trauma/injury, Denies new medications, Denies hx of DVT/PE, Denies non- compliance w/ medications, Denies other Relieving factors: none Exacerbating factors: none Associated symptoms: Reports denies other symptoms, Reports nausea/vomiting; Denies confusion, Denies chest pain, Denies cough, Denies diaphoresis, Denies fever/chills, Denies headaches, Denies loss of appetite, Denies malaise, Denies rash, Denies seizure, Denies shortness of breath, Denies syncope, Denies weakness, Denies other Treatments prior to arrival: none Past Medical/Family History Physician Review I have reviewed the patient's past medical and family history. Any updates have been documented here. Past Medical History Recent Fever: No Clinical Suspicion of Infectio: No New/Unexplained Change in Ment: No Past Medical History: Hypertension, Anxiety, Depression, GERD Other Medical History: IBS Past Surgical History: Cholecysctectomy, Hysterectomy, Hernia Repair Other Surgery: LEFT HAND SX HEMMORRHOID SX PARTIAL HYSTERECTOMY Social History Smoking Cessation: Never Smoker Counseling Performed: No Alcohol Use: None Any Illegal Drug Use: No Physically hurt or threatened: No Other Last Tetanus: UTD Any Pre-Existing Lines (PICC,: No Review of Systems Review of Systems Constitutional: Reports no symptoms EENTM: Reports no symptoms Cardiovascular: Reports no symptoms Respiratory: Reports no symptoms Gastrointestinal: Reports as per HPI Genitourinary: Reports no symptoms Musculoskeletal: Reports no symptoms Integumentary: Reports no symptoms Neurological: Reports no symptoms Psychological: Reports no symptoms Endocrine: Reports no symptoms Hematological/Lymphatic: Reports no symptoms Physical Exam Related Data Allergies: Coded Allergies: ondansetron (Verified Allergy, Severe, tongue and throat swelling, 09/25/19) ketorolac (Verified Allergy, Intermediate, RASH, 05/15/15) prednisone (Verified Allergy, Unknown, "MAKES ME CRAZY", 05/15/15) sulfamethoxazole (Verified Allergy, Unknown, 02/20/16) trimethoprim (Verified Allergy, Unknown, 02/20/16) NSAIDS (Non-Steroidal Anti-Inflamma (Verified Adverse Reaction, Intermediate, STOMACH PAIN, 05/15/15) Uncoded Allergies: NSAIDS (Allergy, Unknown, GI BLEED, 02/07/17) Triage Vital Signs Vital Signs Date Time Temp Pulse Resp B/P (MAP) Pulse Ox O2 Delivery O2 Flow Rate FiO2 09/25/19 10:17 98.3 72 20 150/76 98 Room Air Vital signs reviewed: Yes Physical Exam CONSTITUTIONAL Constitutional: Present well-developed, Present well-nourished HENT HENT: Present normocephalic, Present atraumatic, Present oropharynx clear/moist, Present nose normal HENT L/R: Present left ext ear normal, Present right ext ear normal EYES Eyes: Reports PERRL, Reports conjunctivae normal NECK Neck: Present ROM normal PULMONARY Pulmonary: Present effort normal, Present breath sounds normal CARDIOVASCULAR Cardiovascular: Present regular rhythm, Present heart sounds normal, Present capillary refill normal, Present normal rate GASTROINTESTINAL Abdominal: Present soft, Present bowel sounds normal, Present tender (LLQ) GENITOURINARY Genitourinary: Present exam deferred SKIN Skin: Present warm, Present dry MUSCULOSKELETAL Musculoskeletal: Present ROM normal NEUROLOGICAL Neurological: Present alert, Present oriented x 3, Present no gross motor or sensory deficits PSYCHOLOGICAL Psychological: Present mood/affect normal, Present judgement normal Results Laboratory Lab results reviewed: Yes Imaging Imaging results reviewed: Yes Assessment & Plan Medical Decision Making MDM DIVERTICULITIS OBSTRUCTION Reassessment Reassessment BETTER Assessment & Plan Final Impression: (1) Abdominal tenderness (2) Abdominal pain (3) Vomiting Depart Disposition: HOME, SELF-CARE Last Vital Signs Date Time Temp Pulse Resp B/P (MAP) Pulse Ox O2 Delivery O2 Flow Rate FiO2 09/25/19 12:30 69 16 97 09/25/19 10:17 98.3 150/76 Room Air Home Meds Active Scripts Sucralfate (CARAFATE) 1 Gm/10 Ml Oral.susp, 1 GM PO Q6H, #30 ML Prov:MICKY JONES MD 10/23/17 Reported Medications Pantoprazole Sodium* (PROTONIX) 40 Mg Tablet.dr, 20 MG PO BID, TAB 06/26/17 Hyoscyamine Sulfate (LEVSIN) 0.125 Mg Tablet, 2 TAB SL Q4HR 04/25/17 Promethazine Hcl (PROMETHAZINE HCL) 25 Mg Tablet, 25 MG PO PRN PRN for NAUSEA, TAB 04/25/17 Esomeprazole Magnesium (NEXIUM) 40 Mg Capsule.dr, 40 MG PO BID PROTONIX THERAPEUTIC SUBSTITUTE FOR NEXIUM PER [facility] 04/12/16 Paroxetine Hcl (PAXIL CR) 25 Mg Tab.er.24h, 50 MG PO DAILY 05/15/15 Dicyclomine Hcl (BENTYL) 20 Mg Tablet, 20 MG PO TID 09/21/14 Trazodone Hcl (TRAZODONE HCL) 50 Mg Tablet, 200 MG PO BEDTIME, #30 TAB 03/19/14 Amlodipine Besylate (NORVASC) 10 Mg Tab, 10 MG PO HS 01/02/14 Chlordiazepoxide/Clidinium Br (LIBRAX CAPSULE) 1 Each Capsule, 1 CAP PO TID 01/02/14 Lorazepam (ATIVAN) 2 Mg Tablet, 1 TAB PO BID PRN for ANXIETY 01/02/14 Discontinued Reported Medications Ondansetron (ZOFRAN ODT) 4 Mg Tab.rapdis, 4 MG PO PRN, TAB 06/26/17 Discontinued Scripts Ondansetron (ZOFRAN ODT) 4 Mg Tab.rapdis, 4 MG SL Q6H PRN for Nausea, #14 0 Refills Prov:MICKY JONES MD 10/23/17 Medications in the ED Morphine Sulfate 2 mg ONCE STAT IV Last administered on 09/25/19at 11:05; Admin Dose 2 MG; Start 09/25/19 at 10:34; Stop 09/25/19 at 10:45; Status DC Dicyclomine HCl 20 mg ONCE ONCE IM Last administered on 09/25/19at 11:05; Admin Dose 20 MG; Start 09/25/19 at 10:45; Stop 09/25/19 at 10:46; Status DC Dicyclomine HCl 20 mg STK-MED ONCE IM ; Start 09/25/19 at 11:07; Stop 09/25/19 at 11:03; Status DC Promethazine HCl 25 mg STK-MED ONCE IM ; Start 09/25/19 at 11:07; Stop 09/25/19 at 11:03; Status DC Morphine Sulfate 4 mg STK-MED ONCE .ROUTE ; Start 09/25/19 at 11:07; Stop 09/25/19 at 11:03; Status DC Sodium Chloride 50 ml @ ud STK-MED ONCE .ROUTE ; Start 09/25/19 at 11:07; Stop 09/25/19 at 11:03; Status DC Morphine Sulfate 2 mg NOW STAT IV Last administered on 09/25/19at 12:15; Admin Dose 2 MG; Start 09/25/19 at 12:06; Stop 09/25/19 at 12:11; Status DC Promethazine HCl 25 mg STK-MED ONCE IM ; Start 09/25/19 at 12:13; Stop 09/25/19 at 12:08; Status DC Sodium Chloride 50 ml @ ud STK-MED ONCE .ROUTE ; Start 09/25/19 at 12:13; Stop 09/25/19 at 12:08; Status DC NAWAF HERNANDEZ MD Sep 25, 2019 12:50
--- OUTSIDE RECORDS SUMMARY | 2019-09-25 13:04 | XMS REPORT | Clinical Summary ---
Author Author [facility] Address Unknown Phone Unavailable Care Team Providers Care Wool Shearing Supervisor Name Role Phone Reymundo Fernández MD PCP Allergies Comments Active Allergy Reactions Severity Noted Date Sulfamethoxazole-Trimetho 07/09/2017 prim Nsaids (Non-Steroidal 07/09/2017 Anti-Inflammatory Drug) Sulfamethoxazole 05/31/2015 Trimethoprim 05/31/2015 Ondansetron Hcl Swelling 01/10/2018 Medications End Date Status Medication Sig Dispensed Refills Start Date Active dicyclomine (BENTYL) 20 Take 20 mg by 0 mg tablet mouth 2 (two) times a day as needed. Active promethazine (PHENERGAN) Take 25 mg by 0 25 MG tablet mouth every 6 (six) hours as needed for nausea or vomiting. Active amLODIPine (NORVASC) 10 Take 10 mg by 0 mg tablet mouth daily. Active esomeprazole (NexIUM) 40 Take 40 mg by 0 MG capsule mouth daily before breakfast. Active Problems Problem Noted Date Epigastric pain 07/09/2017 Social History Date Tobacco Use Types Packs/Day Years Used Current Some Day Smoker Cigarettes Smokeless Tobacco: Current User Comments: "ocassional" Drinks/Week oz/Week Comments Alcohol Use No Sex Assigned at Date Recorded Not on file Industry Job Start Date Occupation Not on file Not on file Not on file Travel End Travel History Travel Start No recent travel history available. 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
--- OUTSIDE RECORDS SUMMARY | 2019-09-25 13:04 | XMS REPORT | Clinical Summary ---
Author Author [facility] Organization [facility] ict Address Unknown Phone Unavailable Care Team Providers Care Theater Manager Name Role Phone PCP Unavailable Allergies Comments Active Allergy Reactions Severity Noted Date Sulfamethoxazole-Trimetho 08/11/2015 prim GI Bleeding Nsaids (Non-Steroidal Other 08/05/2015 Anti-Inflammatory Drug) Ketorolac Tromethamine 08/11/2015 Medications End Date Status Medication Sig Dispensed Refills Start Date Active LORAZEPAM (ATIVAN OR) Take 2 mg by 0 mouth . Active CLIDINIUM-CHLORDIAZEPOXID Take 1 0 E (LIBRAX) 5-2.5 mg capsule by capsule mouth 4 times daily (before meals and nightly). Active traZODone (DESYREL) 100 Take 100 mg 0 mg tablet by mouth at bedtime nightly. Active amLODIPine (NORVASC) 10 Take 1 tablet 90 tablet 0 mg tabletIndications: by mouth 6 Essential hypertension, daily. Chest pain, unspecified Active dicyclomine (BENTYL) 20 Take 1 tablet 90 tablet 2 mg tabletIndications: by mouth 3 6 Irritable bowel syndrome times daily. without diarrhea, Abdominal distension Active PARoxetine (PAXIL) 40 mg Take 1 tablet 90 tablet 0 tabletIndications: by mouth 6 History of panic attacks daily. Active traMADol (ULTRAM) 50 mg Take 1 tablet 15 tablet 0 tabletIndications: Low by mouth 6 back pain radiating to every 8 hours left lower extremity as needed for Pain. Active ferrous sulfate 325 mg Take 1 tablet 0 11/06/ 01 (65 mg iron) by mouth 3 6 tabletIndications: times daily Anemia, unspecified with meals. Active omeprazole (PRILOSEC) 20 Take 1 90 capsule 0 1 mg delayed release capsule by 6 capsuleIndications: mouth daily. Gastroesophageal reflux disease without esophagitis Active gabapentin (NEURONTIN) Take 1 tablet 60 tablet 2 1 600 mg tabletIndications: by mouth 2 6 Low back pain radiating times daily. to left lower extremity Active losartan (COZAAR) 50 mg Take 1 tablet 90 tablet 0 tabletIndications: by mouth 6 Hospital discharge daily. follow-up, Essential hypertension Active cyclobenzaprine Take 1 tablet 20 tablet 0 11/25/19 1 (FLEXERIL) 10 mg by mouth 6 tabletIndications: Low nightly at back pain radiating to bedtime as left lower extremity, needed for Left-sided thoracic back Muscle pain, unspecified Spasms. chronicity Active Problems Problem Noted Date Anemia, unspecified 11/07/2015 Hyperlipidemia 11/07/2015 Irritable bowel syndrome without diarrhea 11/01/2015 Hemorrhoids 11/01/2015 Low back pain radiating to left lower extremity 10/20 Right bundle branch block (RBBB) 11/01/2015 Syncope 08/11/2015 Precordial pain 08/11/2015 Nausea and vomiting Pain of upper abdomen Family History Medical History Relation Name Comments Psychiatry Brother bipolar/depression Stroke Brother Psychiatry Brother bipolar Diabetes Father Heart Father Hypertension Father Stroke Father Cancer Mother ovarian cancer Psychiatry Sister depression/bioplar Relation Name Status Comments Brother Brother Father Mother Sister Social History Date Tobacco Use Types Packs/Day Years Used Never Smoker Smokeless Tobacco: Never Used Tobacco Cessation: Counseling Given: No Drinks/Week oz/Week Comments Alcohol Use 0 Standard drinks or equivalent 0.0 No Sex Assigned at Date Recorded Not on file Industry Job Start Date Occupation Not on file Not on file Not on file Travel End Travel History Travel Start No recent travel history available. Last Filed Vital Signs Not on file Plan of Treatment Health Maintenance Due Date Last Done Comments Breast Cancer Scrn 2010 (Yearly) Results Not on fileafter 09/24/2018 Insurance Type Payer Benefit Subscriber ID Effective Phone Address Plan / Dates Group [place] MEDICA[place] [id number] [facility] xxxxxxxxx 2015- [phone] [address] Present [address] [place] [address] Advance Directives Date Inactivated Comments Code Status Date Activated 12/08/2015 8:10 PM Full Code 12/08/2015 5:39 PM
--- OUTSIDE RECORDS SUMMARY | 2019-09-25 13:05 | XMS REPORT ---
Author Author Admin, [facility] Unknown Address Unknown Phone Unavailable PROBLEMS Condition Status Date Provider Notes Hyperlipidemia active Katherine Alin HYPERTENSION active Katherine Alin LOW BACK PAIN active Katherine Alin Fibromyalgia active Shiva Kelly IBS active Shiva Kelly Migraine headache active Shiva Kelly Bipolar disorder active Shiva Kelly ENCOUNTERS Date Type Provider Location Encounter Diagn osis - Ambulatory Encounter Katherinenessa Ogden Sa ruthannnessa Ogden [facility] UNK - Ambulatory Encounter Katherinenessa Cruz n Katherinenessa Henderson [facility] HYPERTENSIONHyperlipidemia - Ambulatory Encounter Elina Harris [employer] [facility] UNK - Ambulatory Encounter Elina Harris [employer] [facility] UNK - Ambulatory Encounter Katherinenessa Nieto [employer] [facility] UNK - Ambulatory Encounter Jorge Rayo [facility] UNK - Ambulatory Encounter Elina Victor [facility] UNK - Ambulatory Encounter Katherine Josee anu Katherinenessa Ogden [employer] [facility] UNK - Ambulatory Encounter Chiara Angulo [facility] Center UNK - Ambulatory Encounter Kathreine Alin Sa ruthann Alin [facility] UNK - Ambulatory Encounter Katherine Alin Sa ruthann Alin [facility] UNK - Ambulatory Encounter Katherinenessa Garciae n Katherine Alin Marie Henderson [facility] LOW BACK PAIN - Ambulatory Encounter Shiva Kelly [facility] UNK - Ambulatory Encounter Shiva Alva [facility] UNK - Ambulatory Encounter Shiva Kelly [facility] UNK - Ambulatory Encounter Shiva Kelly [facility] UNK - Ambulatory Encounter Shiva Rayo [facility] UNK - Ambulatory Encounter Shiva [facility] UNK - Ambulatory Encounter Shadia Harris [facility] UNK - Ambulatory Encounter Shiva Kelly [facility] UNK - Ambulatory Encounter Chiara Abdalla [facility] Contact Center UNK - Ambulatory Encounter Shiva Kelly [facility] UNK - Ambulatory Encounter Shiva Proctor [facility] Bipolar disorderMigraine headacheIBSFibr omyalgia VITAL SIGNS Date Observation Value Provider oxygen saturation, oximetry 95 % Amelia twin Henderson " blood pressure, diastolic 109 mm[Hg] Charlie a Henderson " blood pressure, systolic 159 mm[Hg] Marie Henderson " respiratory rate E&M 14 /min Marie Vas valarie " pulse rate E&M 80 /min Marie Henderson " temperature E&M 98.6 [degF] Marie Henderson " weight E&M 205.40 lbs. Marie Henderson " weight in kilograms E&M 93.36 kg Marie Henderson " method used to obtain blood pressure automatic Marie Henderson " Blood Pressure Position 01 sitting Jaret na Henderson " blood pressure, site #1 left arm Marie Henderson " temperature site oral Marie Henderson " height E&M 64 [in_i] Marie Henderson " height in centimeters E&M 162.56 cm Charlie betsy Santiago oxygen saturation, oximetry 97 % Amelia twin Henderson " method used to obtain blood pressure automatic Marie Henderson " Blood Pressure Position 01 sitting Jaret na Henderson " blood pressure, site #1 left arm Marie Henderson " blood pressure, diastolic 70 mm[Hg] Charlie a Henderson " blood pressure, systolic 116 mm[Hg] Marie Henderson " respiratory rate E&M 14 /min Marie Vas valarie " pulse rate E&M 79 /min Marie Henderson " temperature site oral Marie Henderson " temperature E&M 98.8 [degF] Marie Henderson " weight E&M 212.60 lbs. Marie Henderson " weight in kilograms E&M 96.64 kg Marie Henderson " height E&M 64 [in_i] Marie Henderson " height in centimeters E&M 162.56 cm Charlie betsy Henderson blood pressure, diastolic, second observation 84 mm[Hg] Deborath Rayo " blood pressure, systolic, second observation 154 mm[Hg] Deborath Rayo " oxygen saturation, oximetry 96 % Agnieszka [facility] Rayo " method used to obtain blood pressure automatic Deborath Rayo " Blood Pressure Position 01 sitting Debor ath Rayo " blood pressure, site #1 right arm Deborath Rayo " blood pressure, diastolic 94 mm[Hg] [facility] " blood pressure, systolic 153 mm[Hg] [place] [facility] " respiratory rate E&M 18 /min [facility] anados " pulse rate E&M 73 /min [facility] s " temperature site oral [facility] os " temperature E&M 98.1 [degF] [facility] s " weight E&M 204 lbs. [place] Jaspreet s " weight in kilograms E&M 92.[address] [facility] " height E&M 64 [in_i] [place] Jaspreet s " height in centimeters E&M 162.56 cm Jennifer th [facility] blood pressure, diastolic, second observation 94 mm[Hg] [facility] " blood pressure, systolic, second observation 143 mm[Hg] [facility] " blood pressure, diastolic 93 mm[Hg] [facility] " blood pressure, systolic 142 mm[facility]Hg[facility] " oxygen saturation, oximetry 96 % [facility] " method used to obtain blood pressure automatic [facility] " Blood Pressure Position 01 sitting [facility] " blood pressure, site #[address] [facility] " respiratory rate E&M 18 /min [facility] anados " pulse rate E&M 94 /min [facility] s " temperature site oral [facility] os " temperature E&M 98.3 [degF] [facility] " weight E&M 198.[address] [facility] " weight in kilograms E&M 90.[address] [facility] " height E&M 64 [in_i] [facility] s " height in centimeters E&M 162.56 cm [facility] Allergies No Known Allergy Information REASON FOR REFERRAL No Information Available RESULTS No Information Available HISTORY OF IMMUNIZATIONS No Information Available HISTORY OF MEDICATION USE Medication Instructions Dates Provider Comments LIPITOR 20 MG ORAL TABLET 1 by mouth every pm Katherine Alin LOSARTAN POTASSIUM 50 MG ORAL TABLET 1 By Mouth once a day 04/22 Katherine Alin NORVASC 10 MG ORAL TABLET 1 by mouth every day Katherine Alin ACETAMINOPHEN-CODEINE #3 300-30 MG ORAL TABLET TAKE 1 TABLET BY MOUTH EVERY 6 HOURS NEEDED FOR PAIN - Katherine Alin #8, 2 days supply, Prescribed by MEG HOWE, Filled 09/14/2018 CYCLOBENZAPRINE HCL 10 MG ORAL TABLET 1 By Mouth three times a day as needed for muscle spasm - Katherine Alin SUMATRIPTAN SUCCINATE 100 MG ORAL TABLET take one tab at first sign of migraine. Mat repeat dose 2 hrs later if needed. Shiva Kelly QUETIAPINE FUMARATE 300 MG ORAL TABLET take one tab By Mouth Every Day Shiva Kelly PROMETHAZINE HCL 25 MG ORAL TABLET take one tab By Sadia th Every 6 hrs as needed for nausea Shiva Kelly DICYCLOMINE HCL 20 MG ORAL TABLET take one tab By Mouth Four Times a Day Shiva Kelly GABAPENTIN 800 MG ORAL TABLET take one tab By Mouth Three Ti mes a Day Shiva Kelly SOCIAL HISTORY Date Observation Value Provider Exercise Program Referral Didi Henderson " Weight Management Counseling Provided T Marie Henderson " Nutrition intervention T [place] " drug use, illicit Never Marie duong " alcohol use Never Marie Henderson " sexual orientation Heterosexual Marie Vasqu ez " is there any chance that you could be ? No Marie Henderson " passive cigarette smoke exposure No Marie Henderson " if the patient is using/has used a vaping item, Current, Former, Never Used, Not asked No Marie Henderson " smoking status never smoker Marie Henderson time of call 02/04/2019 1:27 PM Caroline Saleh aca sexual orientation Heterosexual Marie Vasqu ez " sex at Female Marie Henderson " patient considered to be homeless No Marie Henderson " drug use, illicit Never Marie duong " alcohol use Never Marie Henderson " is there any chance that you could be ? No Marie Henderson " passive cigarette smoke exposure No Marie Henderson " smoking status never smoker Marie Henderson " Exercise Program Referral T Charlie Henderson " Weight Management Counseling Provided T Marie Henderson " Nutrition intervention T [place] drug use, illicit Never Deborath Jose G dos " alcohol use Never Deborath Jaspreet s " social history reviewed E&M reviewed today Agnieszka Dysonados " is there any chance that you could be ? No [place] Rayo " passive cigarette smoke exposure No [place] Rayo " smoking status never smoker [place] Jaspreet s " Exercise Program Referral T Rayo " Weight Management Counseling Provided T [place] " Nutrition intervention T [place] Rayo time of call 07/22/2018 1:55 PM Toña parikh time of call 07/10/2018 11:50 AM Rosa Isela Barnett ch " drug use, illicit Never Deborath Jose G dos " alcohol use Never [place] Jaspreet s " passive cigarette smoke exposure No [place] Rayo " smoking status never smoker [place] Jaspreet s " Exercise Program Referral T Rayo " Weight Management Counseling Provided T [place] Rayo " Nutrition intervention T [place] FUNCTIONAL STATUS No Information Available MENTAL STATUS Date Observation Value Provider assessment of mood and affect E&M appears anxiou s Katherine Ogden " Generalized Anxiety Disorder Questionnaire - Que stion 2 0 Marie Henderson " Generalized Anxiety Disorder Questionnaire - Que stion 1 0 Marie Henderson Generalized Anxiety Disorder Questionnaire - Que stion 2 0 Marie Henderson " Generalized Anxiety Disorder Questionnaire - Que stion 1 0 Marie Henderson mental status examination: orientation E &M oriented to time, place, and person Shiva Kelly " assessment of mood and affect E&M no depression, anxiety, or agitation Shiva Kelly " Generalized Anxiety Disorder Questionnaire - Que stion [address] [facility] Rayo " Generalized Anxiety Disorder Questionnaire - Que stion 1 0 [facility] assessment of judgment and insight E&M intact Shiva Kelly " mental status examination: orientation E &M oriented to time, place, and person Shiva Kelly " assessment of mood and affect E&M no depression, anxiety, or agitation Shiva Kelly MEDICAL EQUIPMENT No Information Available FAMILY HISTORY No Information Available INSURANCE PROVIDERS Payer name Policy type / Coverage type Covered part y ID Sliding Fee - Cat 1 Commercial insurance [id number] ADVANCE DIRECTIVES No Information Available TREATMENT PLAN Date Name Ofc Vst, Est Level IV Ofc Vst, Est Level III Est Patient Exp Problem - [id number] New Patient Comprehensive - [id number] Behavioral Health - Psychiat ry HISTORY OF PROCEDURES No Information Available GOALS No Information Available HEALTH CONCERNS No Information Available
--- OUTSIDE RECORDS SUMMARY | 2019-09-25 13:05 | XMS REPORT | Continuity of Care Document ---
Author Author [facility] t Organization [facility] Address [address] [place] [address] Phone Unavailable Care Team Providers Care Engineer Remote Control Diesel Name Role Phone AQUILES RANGEL MD PCP NAWAF HERNANDEZ Attphys Unavailable Paco Chiquita KHAN Attphys Katherine Ogden Attphys Henderson, Marie Attphys Unavailable TimElina beckford Attphys Nieto MedAdhermiguel, Rain Attphys Unavailable Rayo, Jorge Attphys Unavailable Phan, Chiara Attphys Unavailable Mariamitzy, Caroline Attphys Unavailable Angulo, Daysi Attphys Unavailable Shannan ELIZABETH, Ranulfo Aleman Attphys Sampson Kelly Attphys SungToña Attphys Unavailable Cortade, Anita Attphys Unavailable Scotty, Shadia Attphys Unavailable Corey, Lisa Attphys Unavailable Guamanian, Rosa Isela Attphys Unavailable Hitesh, Christina Attphys Unavailable Steven BARRIOS Attphys Unavailable ALLI, Tameka DUDLEY Attphys Unavailable Katherine Ogden Unavailable Sampson Kelly Unavailable Payers Payer Name Policy Type Policy Number Effective Date Expiration Date 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-Pres entWorkers Comp xxxxxxxxxxxxxxxx 2018 00:00:00 [facility] CHC/STAR [id number] xxxxxxxxx 2019 00:00:00 [facility] [id number] 2018 00:00:00 2019 00:00 :00 [facility] [id number] 2016 00:00:00 [facility] [address] [id number] 2016 00:00:00 [facility] Problems Condition Name Condition Details Condition Category Status Onset Date Resolution Date Last Treatment Date Treating Clinician Comments Source Hyperlipidemia Condition Active 2019-04-23 00:00:00 16:29:27 Katherine Ogden [facility] HYPERTENSION Condition Active 2019-04-23 00:00:00 04-22:29:27 Katherine Ogden [facility] LOW BACK PAIN Condition Active 2018-11-15 00:00:00 2018 14:29:33 Alin, Katherine [facility] Fibromyalgia Condition Active 2018-06-13 00:00:00 11-15 14:09:54 Shiva Kelly [facility] IBS Condition Active 2018-06-13 00:00:00 2018-11-15 14:09:54 Shiva Kelly [facility] Migraine headache Condition Active 2018-06-13 00:00:00 2018-11-15 14:09:54 Shiva Kelly [facility] Bipolar disorder Condition Active 2018-06-13 00:00:00 2 14:09:54 Shiva Kelly [facility] Epigastric pain Epigastric pain Disease Active 2017-07-09 00:00:00 [facility] Anemia, unspecified Anemia, unspecified Disease Active 2015-11-07 00:00 :00 [facility] Hyperlipidemia Hyperlipidemia Disease Active 2015-11-07 00:00:00 [facility] Irritable bowel syndrome without diarrhea Irritable donn wel syndrome without diarrhea Disease Active 2015-11-01 00:00:00 [facility] Hemorrhoids Hemorrhoids Disease Active 2015-11-01 00:00:00 [facility] Low back pain radiating to left lower extremity Low ba ck pain radiating to left lower extremity Disease Active 2015-11-01 00:00:00 [facility] Right bundle branch block (RBBB) Right bundle branch block (RBBB ) Disease Active 2015-11-01 00:00:00 [facility] Syncope Syncope Disease Active 2015-08-11 00:00:00 [facility] Precordial pain Precordial pain Disease Active 2015-08-11 00:00:00 [facility] Non-specific colitis Colitis Problem Active 2014-03-19 00:00:00 [facility] Vomiting Vomiting Problem Active 2014-03-19 00:00:00 [facility] Chronic abdominal pain Chronic abdominal pain Problem Active 2014-02-26 00:00:00 [facility] Abdominal pain Abdominal pain Problem Active 2014-02-02 00:00:00 [facility] Nausea and vomiting Nausea and vomiting Disease Active [facility] Pain of upper abdomen Pain of upper abdomen Disease Active [facility] Allergies, Adverse Reactions, Alerts Allergy Name Allergy Type Status Severity Reaction(s) Onset Date Inacti ve Date Treating Clinician Comments Source NSAIDS (Non-Steroidal Anti-Inflamma DA Active SV 1 00:00:00 [facility] sulfamethoxazole DA Active SV 2019-04-20 00:00:00 [facility] trimethoprim DA Active SV 2019-04-20 00:00:00 [facility] ondansetron DA Active SV 2019-04-20 00:00:00 [facility] NSAIDS (Non-Steroidal Anti-Inflamma DA Active SV 2019-02-20 9 00:00:00 [facility] Ondansetron Hcl Propensity to adverse reactions to drug Active 2018-06-29 00:00:00 Deven pelaez NSAIDS (Non-Steroidal Anti-Inflamma DA Active [place] 2017-12-21 4 00:00:00 [facility] sulfamethoxazole DA Active SV 2018-01-12 00:00:00 [facility] ondansetron DA Active SV 2018-01-12 00:00:00 [facility] trimethoprim DA Active SV 2018-01-10 00:00:00 [facility] sulfamethoxazole DA Active SV 2018-01-10 00:00:00 [facility] ondansetron DA Active SV 2018-01-10 00:00:00 [facility] Ondansetron Hcl Propensity to adverse reactions to drug Active Swelling 2018-01-10 00:00:00 Deven Meyers odist ondansetron DA Active SV 2018-01-08 00:00:00 [facility] NSAIDS (Non-Steroidal Anti-Inflamma DA Active U 2017-11-19 2 00:00:00 [facility] niacin DA Active U 2017-11-30 00:00:00 [facility] ibuprofen DA Active U 2017-11-30 00:00:00 [facility] sulfamethoxazole DA Active [place] 2017-11-30 00:00:00 [facility] trimethoprim DA Active [place] 2017-11-30 00:00:00 [facility] ketorolac DA Active U 2017-11-30 00:00:00 [facility] NSAIDS (Non-Steroidal Anti-Inflamma DA Active [place] 9 00:00:00 [facility] sulfamethoxazole DA Active SV 2017-09-27 00:00:00 [facility] Sulfamethoxazole-Trimethoprim Propensity to adverse reactions to dr zimmerman Active 2017-07-09 00:00:00 Deven Hooper Nsaids (Non-Steroidal Anti-Inflammatory Drug) Propensi ty to adverse reactions to drug Active 2017-07-09 00:00:00 Fadi Edmondsist Sulfamethoxazole-Trimethoprim Propensity to adverse reactions to dr zimmerman Active 2017-04-10 00:00:00 Deven Hooper Nsaids (Non-Steroidal Anti-Inflammatory Drug) Propensi ty to adverse reactions to drug Active 2017-04-10 00:00:00 Fadi Hooper NSAIDS Allergy to Substance Active GI BLEED 2017-02-07 00:00:00 [facility] Sulfamethoxazole Allergy to Substance Active 2016-02-20 00: 00:00 [facility] Trimethoprim Allergy to Substance Active 2016-02-20 00:00:0 0 [facility] Sulfamethoxazole-Trimethoprim Propensity to adverse reactions to dr zimmerman Active 2015-08-11 00:00[facility]00 [facility] Tromethamine Propensity to adverse reactions to drug Active 2015-08-11 00:00:00 Godwin Jair brandon Nsaids (Non-Steroidal Anti-Inflammatory Drug) Propensi ty to adverse reactions to drug Active Other 2015-08-05 00:00:00 [facility] NSAIDS (Non-Steroidal Anti-Inflamma DA Active U 2015-05-21 1 00:00:00 [facility] niacin DA Active U 2015-05-31 00:00:00 [facility] ibuprofen DA Active U 2015-05-31 00:00:00 [facility] sulfamethoxazole DA Active [place] 2015-05-31 00:00:00 [facility] trimethoprim DA Active [place] 2015-05-31 00:00:00 [facility] ketorolac DA Active U 2015-05-31 00:00:00 [facility] Sulfamethoxazole Propensity to adverse reactions to drug Active 2015-05-31 00:00:00 Deven Methodis t Trimethoprim Propensity to adverse reactions to drug Active 2015-05-31 00:00:00 Deven Edmondsis t NSAIDS (Non-Steroidal Anti-Inflamma Propensity to adverse reacti ons Active Moderate STOMACH PAIN 2015-05-15 00:00:00 [facility] Prednisone Allergy to Substance Active "MAKES ME CRAZY" 2015-04 00:00:00 [facility] Ketorolac Allergy to Substance Active Moderate RASH 2015-05-15 00:00:00 [facility] NSAIDS (Non-Steroidal Anti-Inflamma DA Active SV 3 00:00:00 [facility] NSAIDS (Non-Steroidal Anti-Inflamma DA Active [place] 1 00:00:00 [facility] sulfamethoxazole DA Active NH 2014-08-19 00:00:00 [facility] trimethoprim DA Active [place] 2014-08-19 00:00:00 [facility] Family History Family Member Diagnosis Comments Start Date Stop Date Source Natural brother Stroke [facility] Natural brother Psychiatry [facility] Natural father Diabetes [facility] Natural father Heart [facility] Natural father Hypertension [facility] Natural father Stroke [facility] Natural mother Cancer [facility] Natural sister Psychiatry [facility] Social History Social Habit Start Date Stop Date Quantity Comments Source History of tobacco use Cigarette Smoker Deven Hooper Sex Assigned At Kathy rosalesanu Hooper Alcohol intake 2019-06-20 00:00:00 2019-06-20 00:00:00 Current non-drinker of alcohol (finding) Deven Hooper drug use, illicit 2019-04-23 15:33:31 2019-04-23 15:33:31 Never [facility] alcohol use 2019-04-23 15:33:31 2019-04-23 15:33:31 Never [facility] passive cigarette smoke exposure 2019-04-23 15:33:31 2019-04-23 15:33 :31 No [facility] is there any chance that you could be ? 2019-04-23 1 5:33:31 2019-04-23 15:33:31 No [facility] sexual orientation 2019-04-23 15:33:31 2019-04-23 15:33:31 Heterosexu al [facility] if the patient is using/has used a vapin g item, Current, Former, Never Used, Not asked 2019-04-23 15:33:31 2019-04-23 15:33:31 No L [facility] time of call 2019-02-04 13:27:19 2019-02-04 13:27:19 02/04/2019 1:27 PM [facility] sex at 2018-11-15 13:24:25 2018-11-15 13:24:25 Female [facility] patient considered to be homeless 2018-11-15 13:24:25 2018-11-15 13:2 4:25 No [facility] social history reviewed E&M 2018-07-23 15:19:53 2018-07-23 15:19 :53 reviewed today [facility] Tobacco Comment 2017-07-28 00:00:00 2017-07-28 00:00:00 "ocassional" Deven Hooper Smoking Status Start Date Stop Date Source Current every day smoker 2019-06-20 00:00:00 Kathy Hooper Current some day smoker 2018-01-10 00:00:00 Fadi Hooper Never smoker [facility] Medications Ordered Medication Name Filled Medication Name Start Date Stop Da te Current Medication? Ordering Clinician Indication Dosage Frequency Signature (SIG) Comments Components Source nitrofurantoin, macrocrystal-monohydrate, (MACROBID) 100 MG capsule 2019-06-20 00:00:00 2019-06-25 23:59:00 No 100mg Q.5D Take 1 capsule (100 mg total) by mouth 2 (two) times a day for 5 days. Prabhjot Hooper metoclopramide (REGLAN) 10 MG tablet 2019-06-20 00:00: 00 2019-06-25 23:59:00 No 10mg Q12H Take 1 tablet ( 10 mg total) by mouth every 12 (twelve) hours for 5 days. Deven Hooper LIPITOR (ATORVASTATIN CALCIUM) 20 MG TABS 2019-04-23 00:00:00 Yes 1{Tablet} 1xD 1 by mouth every pm [facility] (LOSARTAN POTASSIUM) 50 MG TABS 2019-04-23 00:00:00 Yes 1{Tablet} 1xD 1 By Mouth once a day [facility] NORVASC (AMLODIPINE BESYLATE) 10 MG TABS 2019-04-23 00:00:00 Yes 1{Tablet} 1xD 1 by mouth every day [facility] (CYCLOBENZAPRINE HCL) 10 MG TABS 2018-11-15 00:00:00 2019-04 00:00:00 No 1{Tablet} 3xD 1 By Mouth three times a day as needed for musc le spasm [facility] promethazine (PHENERGAN) 25 MG tablet 2018-11-01 17:34:07 Y es 25mg Q6H Take 25 mg by mouth every 6 (six) hours as needed for nausea or vomiting. Deven Hooper dicyclomine (BENTYL) 20 mg tablet 2018-11-01 17:34:06 Yes 20mg Q.25D Take 20 mg by mouth 4 (four) times a day. Deven Hooper esomeprazole (NexIUM) 40 MG capsule 2018-11-01 17:34:06 Yes 40mg QD Take 40 mg by mouth daily before breakfast. Kwame Hooper amLODIPine (NORVASC) 10 mg tablet 2018-11-01 17:34:06 Yes 10mg QD Take 10 mg by mouth daily. Deven Hooper acetaminophen-codeine (TYLENOL WITH CODEINE #3) 300-30 mg pe r tablet 2018-11-01 00:00:00 2018-12-01 23:59:00 No acute pain 1{tbl} Q6H Take 1-2 tablets by mouth every 6 (six) hours as needed for moderate pain or severe pain for up to 15 doses .Acute Pain. Deven Hooper cyclobenzaprine (FLEXERIL) 10 mg tablet 00:00:00 2018-12-01 23:59:00 No 10mg Q.5D Take 1 tablet (10 mg total) by mouth 2 (two) times a day as needed for muscle spasms for up to 30 days. Deven Hooper traMADol (ULTRAM) 50 mg tablet 2018-11-01 00:00:00 2018-10-20 3 00:00:00 No acute pain 50mg Q6H Take 1 tablet (50 mg total) by mouth every 6 (six) hours as needed for severe pain for up to 9 doses .Acute Pain. Deven Hooper ACETAMINOPHEN-CODEINE #3 (ACETAMINOPHEN-CODEINE) 300-30 MG T ABS 2018-09-14 00:00:00 2019-04-23 00:00:00 No 1{Tablet} 4xD TAKE 1 TABLET BY MOUTH EVERY 6 HOURS NEEDED FOR PAIN #8, 2 days supply, Prescribed by MEG FLEMING, Richard 09/14/2018 [facility] (SUMATRIPTAN SUCCINATE) 100 MG TABS 2018-06-13 00:00:00 Yes Shiva Kelly take one tab at firs t sign of migraine. Mat repeat dose 2 hrs later if needed. [facility]th (QUETIAPINE FUMARATE) 300 MG TABS 2018-06-13 00:00:00 Ye trish Urrutiabeen 1{Tablet} 1xD take one tab By Mouth Every Day [facility] (PROMETHAZINE HCL) 25 MG TABS 2018-06-13 00:00:00 Yes Katherine Garciaen 1{Tablet} 4xD take one tab By Mouth Every 6 hrs as needed for nausea [facility] (DICYCLOMINE HCL) 20 MG TABS 2018-06-13 00:00:00 Yes Shiva Kelly 1{Tablet} 4xD take one tab By Mouth Four Times a Day [facility] (GABAPENTIN) 800 MG TABS 2018-06-13 00:00:00 Yes Chris Ogden 1{Tablet} 3xD take one tab By Mouth Three Times a Day [facility] promethazine (PHENERGAN) 25 MG tablet 2018-01-10 07:55:49 Y es 25mg Q6H Take 25 mg by mouth every 6 (six) hours as needed for nausea or vomiting. Deven Hooper esomeprazole (NexIUM) 40 MG capsule 2018-01-10 07:55:49 Yes 40mg QD Take 40 mg by mouth daily before breakfast. Kwame Hooper dicyclomine (BENTYL) 20 mg tablet 2018-01-10 07:54:59 Yes 20mg Q.5D Take 20 mg by mouth 2 (two) times a day as needed. Deven Hooper amLODIPine (NORVASC) 10 mg tablet 2018-01-10 07:54:41 Yes 10mg QD Take 10 mg by mouth daily. Deven Hooper Ondansetron (Zofran Odt) 4 Mg Tab.rapdis Ondansetron ( Zofran Odt) 4 Mg Tab.rapdis 2017-10-23 00:00:00 Yes Jose L Green Md 4 Every 6 Hours as needed for Nausea [facility] Sucralfate (Carafate) 1 Gm/10 Ml Oral.susp Sucralfate (Carafate) 1 Gm/10 Ml Oral.susp 2017-10-23 00:00:00 Yes Jose L Green Md 1 Every 6 Hours [facility] promethazine (PHENERGAN) 25 MG tablet 2017-03-31 00:00 :00 2018-11-01 00:00:00 No TAKE 1 TABLET NEEDED EVERY 6-8 HRS OR ALLY 30 Deven Hooper LORAZepam (ATIVAN) 2 MG tablet 2017-03-30 00:00:00 2018-11-01 00 :00:00 No 2mg [id number] Take 2 mg by mouth 3 (three) times a day as needed. Deven Hooper PARoxetine (PAXIL) 30 MG tablet 2017-03-30 00:00:00 00:00:00 No 60mg QD Take 60 mg by mouth every morning. Deven Hooper amLODIPine (NORVASC) 10 mg tablet 2017-03-27 00:00:00 2018 00:00:00 No TAKE 1 TABLET BY MOUTH DAILY 30 Deven Hooper chlordiazepoxide-clidinium (LIBRAX) 5-2.5 mg per capsule 2017-03-18 00:00:00 2018-11-01 00:00:00 No TAKE ONE CAPSULE BY MOUTH 3 TIMES A DAY BEFORE MEALS Deven Hooper hyoscyamine (LEVSIN) 0.125 mg SL tablet 00:00:00 2018-11-01 00:00:00 No DISSOLVE 2 TABLETS U NDER THE TONGUE EVERY 4 HOURS NEEDED Deven Hooper dicyclomine (BENTYL) 20 mg tablet 2017-03-13 00:00:00 2018 00:00:00 No TAKE 1 TABLET BY MOUTH EVERY 6 HOURS NEEDED CRAMPS Deven Hooper traZODone (DESYREL) 150 MG tablet 2017-03-02 00:00:00 2018 00:00:00 No 300mg QD Take 300 mg by mouth nightly. [facility] esomeprazole (NexIUM) 40 MG capsule 2017-01-31 00:00:0 0 2018-11-01 00:00:00 No 40mg Q.5D Take 40 mg by mouth 2 (two) times a day. [facility] omeprazole (PRILOSEC) 20 mg delayed release capsule 2015-02 00:00:00 Yes Gastroesophageal reflux disease without esophagitis 20mg QD Take 1 capsule by mouth daily. [facility] gabapentin (NEURONTIN) 600 mg tablet 2015-11-25 00:00:00 Yes Low back pain radiating to left lower extremity 600mg Q.5D Take 1 tablet by mouth 2 times daily. [facility] losartan (COZAAR) 50 mg tablet 2015-11-25 00:00:00 Yes Essential hypertension 50mg QD Take 1 tablet by mouth daily. [facility] cyclobenzaprine (FLEXERIL) 10 mg tablet 2015-11-25 00:00:00 Yes Left-sided thoracic back pain, unspecified chronicity 10mg Take 1 tablet by mouth nightly at bedtime as needed for Muscle Spasms. [facility] ferrous sulfate 325 mg (65 mg iron) tablet 2015-11-07 00:00: 00 Yes Anemia, unspecified 325mg Q.[id number] Take 1 tablet by mouth 3 times daily with meals. [facility] CLIDINIUM-CHLORDIAZEPOXIDE (LIBRAX) 5-2.5 mg capsule 2 10:47:49 Yes 1{capsule} Take 1 capsule by mouth 4 times daily (before meals and nightly). [facility] traZODone (DESYREL) 100 mg tablet 2015-11-01 10:47:37 Yes 100mg Take 100 mg by mouth at bedtime nightly. [facility] LORAZEPAM (ATIVAN OR) 2015-11-01 10:47:27 Yes 2mg Take 2 mg by mouth . [facility] amLODIPine (NORVASC) 10 mg tablet 2015-11-01 00:00:00 Yes Chest pain, unspecified 10mg QD Take 1 tablet by mouth daily. [facility] dicyclomine (BENTYL) 20 mg tablet 2015-11-01 00:00:00 Yes Abdominal distension 20mg Take 1 tablet by mouth 3 times daily. [facility] PARoxetine (PAXIL) 40 mg tablet 2015-11-01 00:00:00 Yes History of panic attacks 40mg QD Take 1 tablet by mouth daily. [facility] traMADol (ULTRAM) 50 mg tablet 2015-11-01 00:00:00 Yes Low back pain radiating to left lower extremity 50mg Take 1 tablet by mouth every 8 hours as needed for Pain. [facility] Amlodipine Besylate (Norvasc) 10 Mg Tab Amlodipine Besylate (Norvasc) 10 Mg Tab Yes 10 Bedtime [facility] Chlordiazepoxide/Clidinium Br (Librax Capsule) 1 Each Capsule Chlordiazepoxide/Clidinium Br (Librax Capsule) 1 Each Capsule Ye s 1 Three Times A Day [facility] Dicyclomine Hcl (Bentyl) 20 Mg Tablet Dicyclomine Hcl (Bentyl) 20 M g Tablet Yes 20 Three Times A Day [facility] Esomeprazole Magnesium (Nexium) 40 Mg Capsule.dr Love prazole Magnesium (Nexium) 40 Mg Capsule. Yes 40 Twice A Day [facility] Hyoscyamine Sulfate (Levsin) 0.125 Mg Tablet Hyoscyami ne Sulfate (Levsin) 0.125 Mg Tablet Yes 2 Every 4 Hours [facility] Lorazepam (Ativan) 2 Mg Tablet Lorazepam (Ativan) 2 Mg Tablet Yes 1 Twice A Day as needed for Anxiety [facility] Ondansetron (Zofran Odt) 4 Mg Tab.rapdis Ondansetron ( Zofran Odt) 4 Mg Tab.rapdis Yes 4 As Needed [facility] Pantoprazole Sodium (Protonix) 40 Mg Tablet. Pantopr azole Sodium (Protonix) 40 Mg Tablet. Yes 20 Twice A Day [facility] Paroxetine Hcl (Paxil Cr) 25 Mg Tab.er.24h Paroxetine Hcl (Paxil Cr) 25 Mg Tab.er.24h Yes 50 Daily [facility] Promethazine Hcl 25 Mg Tablet Promethazine Hcl 25 Mg Tablet Yes 25 As Needed as needed for Nausea [facility] Trazodone Hcl 50 Mg Tablet Trazodone Hcl 50 Mg Tablet Yes 200 Bedtime [facility] Dexlansoprazole (Dexilant) 60 Mg Cap., 1 Cap Oral Dexlansoprazole (Dexilant) 60 Mg Cap., 1 Cap Oral 2017-02-07 00:00:00 No 1 Twice A Day [facility] Sucralfate (Carafate) 1 Gm Tablet, 1 Gm Oral Sucralfat e (Carafate) 1 Gm Tablet, 1 Gm Oral 2017-02-07 00:00:00 No 1 Four Times Celina ly [facility] Fioricet , Fioricet , 2016-04-12 00:00:00 No [facility] Sumatriptan Succinate (Imitrex) 25 Mg Tablet, Sumatrip giles Succinate (Imitrex) 25 Mg Tablet, 2016-04-12 00:00:00 No [facility] Linzess , 145 Mcg Oral Linzess , 145 Mcg Oral 2015-05-15 00:00:0 0 No 145 Every Morning [facility] Paroxetine Hcl (Paxil) 40 Mg Tablet, 1 Tab Oral Paroxe palmira Hcl (Paxil) 40 Mg Tablet, 1 Tab Oral 2015-05-15 00:00:00 No 1 Daily [facility] Promethazine Hcl (Phenergan) 25 Mg/1 Ml Ampul, 25 Mg O ral Promethazine Hcl (Phenergan) 25 Mg/1 Ml Ampul, 25 Mg Oral 2015-05-15 00:00:00 No 25 As Needed [facility] Pantoprazole Sodium (Protonix) 40 Mg Suspdr.pkt, 40 Mg Oral Pantoprazole Sodium (Protonix) 40 Mg Suspdr.pkt, 40 Mg Oral 2014-01-23 00:00:00 No 40 Daily [facility] Tramadol Hcl (Ultram) 50 Mg Tablet, 50 Mg Oral Tramado l Hcl (Ultram) 50 Mg Tablet, 50 Mg Oral 2014-01-23 00:00:00 No 50 Every 6 Hours as needed for Pain [facility] Hydrocodone , Mg Oral Hydrocodone , Mg Oral 2013-12-02 00:00:00 No As Needed [facility] Amlodipine Besylate (Norvasc) 5 Mg Tablet, 10 Mg Oral Amlodipine Besylate (Norvasc) 5 Mg Tablet, 10 Mg Oral 2012-10-28 00:00:00 No 10 Daily [facility] Chlordiazepoxide/Clidinium Br (Chlordiaz epoxide-Clidinium Cap) 1 Each Capsule, 1 Cap Oral Chlordiazepoxide/Clidinium Br (Chlordiaz epoxide-Clidinium Cap) 1 Each Capsule, 1 Cap Oral 2012-10-28 00:00:00 No 1 Thre e Times A Day [facility] Hydrocodone Bit/Acetaminophen ([place] 10-325 Tablet) 1 Each Tablet, Hydrocodone Bit/Acetaminophen ([place] 10-325 Tablet) 1 Each Tablet, 00:00:00 No [facility] Lorazepam 2 Mg Tablet, 2 Mg Oral Lorazepam 2 Mg Tablet, 2 Mg Ora l 2012-10-28 00:00:00 No 2 Twice A Day [facility] Paroxetine Hcl (Paxil) 20 Mg Tablet, 20 Mg Oral Paroxe palmira Hcl (Paxil) 20 Mg Tablet, 20 Mg Oral 2012-10-28 00:00:00 No 20 Daily [facility] Promethazine Hcl (Phenergan) 25 Mg Tablet, 0.5 Mouth/ Throat Promethazine Hcl (Phenergan) 25 Mg Tablet, 0.5 Mouth/Throat 2012-10-28 00:00:00 No .5 Tid Prn [facility] Alprazolam 1 Mg Tablet, 2 Mg Oral Alprazolam 1 Mg Tablet, 2 Mg O ral 2012-08-27 00:00:00 No 2 Bid Prn [facility] Dicyclomine Hcl (Bentyl) 20 Mg Tablet, 1 Mouth/Throat Dicyclomine Hcl (Bentyl) 20 Mg Tablet, 1 Mouth/Throat 2012-08-27 00:00:00 No 1 Tid Prn [facility] Paroxetine Hcl (Paxil) 10 Mg Tablet, 10 Mg Oral Paroxe palmira Hcl (Paxil) 10 Mg Tablet, 10 Mg Oral 2012-06-15 00:00:00 No 10 Daily [facility] Trimethobenzamide Hcl (Tigan) 300 Mg Capsule, 300 Mg O ral Trimethobenzamide Hcl (Tigan) 300 Mg Capsule, 300 Mg Oral 2012-06-15 00:00:00 No 300 Three Times A Day [facility] Vital Signs Vital Name Observation Time Observation Value Comments Source Systolic blood pressure 2019-06-20 09:36:00 135 mm[Hg] [facility] Diastolic blood pressure 2019-06-20 09:36:00 85 mm[Hg] [facility] Heart rate 2019-06-20 09:36:00 78 /min [facility] Respiratory rate 2019-06-20 09:36:00 15 /min Fadi Hooper Oxygen saturation in Arterial blood by Pulse oximetry 06-19 09:36:00 97 /min [facility] Body temperature 2019-06-20 06:55:00 36.72 Amy Hous [facility] Body height 2019-06-20 06:55:00 162.6 cm [facility] Body weight 2019-06-20 06:55:00 92.987 kg [facility] BMI 2019-06-20 06:55:00 35.19 kg/m2 [facility] oxygen saturation, oximetry 2019-04-23 15:33:31 95 % [facility] blood pressure, diastolic 2019-04-23 15:33:31 109 mm[Hg] [facility] blood pressure, systolic 2019-04-23 15:33:31 159 mm[Hg] [facility] respiratory rate E&M 2019-04-23 15:33:31 14 /min [facility] pulse rate E&M 2019-04-23 15:33:31 80 /min [facility] temperature E&M 2019-04-23 15:33:31 98.6 [degF] [facility] weight E&M 2019-04-23 15:33:31 205.40 [lb_av] [facility] weight in kilograms E&M 2019-04-23 15:33:31 93.36 kg [facility] temperature site 2019-04-23 15:33:31 oral Lega [facility] height in centimeters E&M 2019-04-23 15:33:31 162.56 cm [facility] oxygen saturation, oximetry 2018-11-15 13:24:25 97 % [facility] blood pressure, diastolic 2018-11-15 13:24:25 70 mm[Hg] [facility] blood pressure, systolic 2018-11-15 13:24:25 116 mm[Hg] [facility] respiratory rate E&M 2018-11-15 13:24:25 14 /min [facility] pulse rate E&M 2018-11-15 13:24:25 79 /min [facility] temperature site 2018-11-15 13:24:25 oral Lega cy [facility] temperature E&M 2018-11-15 13:24:25 98.8 [degF] [facility] weight E&M 2018-11-15 13:24:25 212.60 [lb_av] [facility] weight in kilograms E&M 2018-11-15 13:24:25 96.64 kg [facility] height in centimeters E&M 2018-11-15 13:24:25 162.56 cm [facility] blood pressure, diastolic 2018-07-23 15:19:53 94 mm[Hg] [facility] blood pressure, systolic 2018-07-23 15:19:53 153 mm[Hg] [facility] oxygen saturation, oximetry 2018-07-23 15:19:53 96 % [facility] respiratory rate E&M 2018-07-23 15:19:53 18 /min [facility] pulse rate E&M 2018-07-23 15:19:53 73 /min [facility] temperature site 2018-07-23 15:19:53 oral Lega cy [facility] temperature E&M 2018-07-23 15:19:53 98.1 [degF] [facility] weight E&M 2018-07-23 15:19:53 204 [lb_av] [facility] E&M 2018-07-23 15:19:53 92.73 kg [facility] height in centimeters E&M 2018-07-23 15:19:53 162.56 cm [facility] blood pressure, diastolic 2018-06-13 09:25:00 93 mm[Hg] [facility] blood pressure, systolic 2018-06-13 09:25:00 142 mm[Hg] [facility] oxygen saturation, oximetry 2018-06-13 09:25:00 96 % [facility] respiratory rate E&M 2018-06-13 09:25:00 18 /min [facility] pulse rate E&M 2018-06-13 09:25:00 94 /min [facility] temperature site 2018-06-13 09:25:00 oral Lega cy [facility] temperature E&M 2018-06-13 09:25:00 98.3 [degF] Legac y [facility] weight E&M 2018-06-13 09:25:00 198.50 [lb_av] [facility] weight in kilograms E&M 2018-06-13 09:25:00 90.23 kg [facility] height in centimeters E&M 2018-06-13 09:25:00 162.56 cm [facility] Procedures Procedure Date / Time Performed Performing Clinician [facility] e US PELVIC TRANSVAGINAL 2019-06-20 09:07:25 Natalie Garzon US PELVIC TRANSABDOMINAL 2019-06-20 09:07:01 Natalie Garzon URINE CULTURE 2019-06-20 07:37:00 Natalie Garzon CHLAMYDIA GONORRHOEAE AND TRICHOMONAS PANEL 2019-06-20 07:15 :00 Natalie Garzon URINALYSIS SCREEN AND MICROSCOPY, WITH REFLEX TO CULTURE 202 07:15:00 Natalie Garzon HCG QUALITATIVE, URINE SCREEN 2019-06-20 07:15:00 Natalie Garzon HC COMPLETE BLD COUNT W/AUTO DIFF 2019-06-20 07:15:00 Jackie Garzon PROTHROMBIN TIME WITH INR 2019-06-20 07:15:00 Natalie Garzon PARTIAL THROMBOPLASTIN TIME (PTT) 2019-06-20 07:15:00 Jackie Garzon TYPE AND SCREEN 2019-06-20 07:15:[address] LUMBAR SPINE WO CONTRAST 2018-11-01 16:17:06 Ash Campbell And isa [facility] Computed tomography of brain without radiopaque contrast 201 09-23-14 00:00:00 OCTAVIA CARSON [facility] CT of abdomen and pelvis without contrast 2017-07-03 00:00:0 0 OCTAVIA CARSON [facility] EGD BIOPSY SINGLE/MULTIPLE 2017-06-27 00:00:00 ZEUS SWANSON [facility] DILATE ESOPHAGUS 1/MULT PASS 2017-06-27 00:00:00 ZEUS SWANSON [facility] EMERGENCY DEPT VISIT 2017-05-06 00:00:00 [facility] Computed tomography of brain without radiopaque contrast 201 09-21-06 00:00[facility] without contrast 04-25 00:00:00 RAGHAV FLEMING [facility] EGD BIOPSY SINGLE/MULTIPLE 2017-02-08 00:00:00 ZEUS SWANSON [facility] EGD DILATE STRICTURE 2017-02-08 00:00:00 ZEUS SWANSON [facility] DILATE ESOPHAGUS 1/MULT PASS 2017-02-08 00:00:00 ZEUS SWANSON [facility] Plan of Care Planned Activity Planned Date Details Comments Source Future Scheduled Test 2019-09-20 00:00:00 INFLUENZA VACCINE [code = INFLUENZA VACCINE] [facility] Future Scheduled Test 2019-09-20 00:00:00 INFLUENZA VACCINE [code = INFLUENZA VACCINE] [facility] Scheduled Test 2010 00:00:00 Breast Cancer Scrn (Yearly) [code = Breast Cancer Scrn (Yearly)] [facility] Future Scheduled Test 1991 00:00:00 Screening for flores gnant neoplasm of cervix (procedure) [code = 953584290] [facility] Future Scheduled Test 1991 00:00:00 Screening for flores gnant neoplasm of cervix (procedure) [code = 402166483] Deven Edmondsis t Encounters Start Date/Time End Date/Time Encounter Type Admission Type [facility] Care Department Encounter ID Source 2019-06-20 00:00:00 2019-06-20 00:00:00 Emergency NATALIE GARZON H [id number] Deven Hooper 2019-04-23 00:00:00 2019-04-23 00:00:00 Office Visit Katherine Ogden [facility] Encounter/[id number] [facility] 2019-04-23 00:00:00 2019-04-23 00:00:00 Office Visit Katherine Olivia Adriana [facility] Encounter/[id number] [facility] 2019-03-24 00:00:00 2019-03-24 00:00:00 Office Visit Elina Dumont [facility] Encounter/[id number] [facility] 2019-02-13 00:00:00 2019-02-13 00:00:00 Office Visit Katherine Olivia Mary [facility] Family Pr actice Encounter/[id number] [facility] 2019-02-05 00:00:00 2019-02-05 00:00:00 Office Visit Elina Dumont [facility] Encounter/[id number] [facility] 2019-02-04 00:00:00 2019-02-04 00:00:00 Office Visit Jorge Jarrett [facility] Services Encounter/[id number] [facility] 2019-02-04 00:00:00 2019-02-04 00:00:00 Office Visit Elina Escalera Brenda Granados, Deborath Mariaca, Jennifer [facility] Services Encounter/[id number] [facility] 2018-11-26 00:00:00 2018-11-26 00:00:00 Office Visit Katherine Ogden [facility] Encounter/[id number] [facility] 2018-11-16 00:00:00 2018-11-16 00:00:00 Office Visit Chiara Devine Sameera Salazar, Cindy [facility] Services Contact Center Encounter/[id number] [facility] 2018-11-15 00:00:00 2018-11-15 00:00:00 Office Visit Katherine Ogden [facility] Encounter/[id number] [facility] 2018-11-15 00:00:00 2018-11-15 00:00:00 Office Visit Katherine Ogden [facility] Encounter/[id number] [facility] 2018-11-15 00:00:00 2018-11-15 00:00:00 Office Visit Katherine Olivia Adriana [facility] Encounter/[id number] [facility] 2018-09-13 19:40:00 2018-09-13 19:40:00 Emergency E MHSE MHSE [facility] [facility] 2018-09-13 00:00:00 2018-09-13 00:00:00 Office Visit Shiva Kelly [facility] Encounter/[id number] [facility] 2018-07-23 00:00:00 2018-07-23 00:00:00 Office Visit Shiva Kelly [facility] Encounter/[id number] [facility] 2018-07-23 00:00:00 2018-07-23 00:00:00 Office Visit Shiva Kelly [facility] Encounter/[id number] [facility] 2018-07-23 00:00:00 2018-07-23 00:00:00 Office Visit Shiva Kelly [facility] Encounter/[id number] [facility] 2018-07-23 00:00:00 2018-07-23 00:00:00 Office Visit Shiva Vieira Deborath [facility] Encounter/[id number] [facility] 2018-07-22 00:00:00 2018-07-22 00:00:00 Office Visit Shiva Vieira Brenda Hernandez, Giselle Cortade, Karen [facility] Services Contact Center Encounter/[id number] [facility] 2018-07-12 00:00:00 2018-07-12 00:00:00 Office Visit Shadia Fajardo [facility] Encounter/[id number] [facility] 2018-07-12 00:00:00 2018-07-12 00:00:00 Office Visit Shiva Kelly [facility] Encounter/[id number] [facility] 2018-07-10 00:00:00 2018-07-10 00:00:00 Office Visit Chiara Devine, Rosa Isela Mcclendon [facility] Services Contact Center Encounter/[id number] [facility] 2018-06-13 00:00:00 2018-06-13 00:00:00 Office Visit Shiva Kelly [facility] Encounter/[id number] [facility] 2018-06-13 00:00:00 2018-06-13 00:00:00 Office Visit Shiva Vieira Nancy Granados, Deborath Miller, Kristine [facility] Encounter/[id number] [facility] 2017-11-08 05:22:00 2017-11-08 06:54:00 Departed Emergency Room 1 KAMINI BARRIOS [facility] [id number] [facility] 2017-10-23 14:37:00 2017-10-23 16:52:00 Departed Emergency Room [facility] [id number] [facility] 2017-07-03 14:40:00 2017-07-03 22:07:00 Departed Emergency Room 1 ALLI OCTAVIA [facility] [id number] [facility] 2017-06-27 13:06:00 2017-06-27 13:06:00 Registered Surgical Day Care [facility] [id number] [facility] 2017-06-26 10:04:00 2017-06-26 12:27:00 Departed Emergency Room [facility] [id number] [facility] 2017-05-06 05:06:00 2017-05-06 06:27:00 Departed Emergency Room ER KAMINI BARRIOS [facility] [id number] [facility] 2017-04-25 20:31:00 2017-04-25 22:39:00 Departed Emergency Room ER KAMINI BARRIOS [facility] [id number] [facility] 2017-02-08 06:51:00 2017-02-08 06:51:00 Registered Surgical Day Care [facility] [id number] [facility] Results Test Description Test Time Test Comments Results Result Comments Source CT ABD/PEL WO CONTRAST-HOPD 2019-09-25 11:34:00 [place] [address] Patient Name: JANAY FLEMING MR #: [id number] : 1970 Age/Sex: 49/F Req #: [id number] Adm Physician: Ordered by: NAWAF HERNANDEZ MD Report #: [id number] Location: [facility] Room/Bed: Procedure: [id number] HOPD/CT ABD/PEL WO CONTRAST-HOPD Exam Date: 09/25/19 Exam Time: 1129 REPORT STATUS: Signed CT of the abdomen and pelvis, without contrast. History: Abdominal pain. Comparison: CT abdomen/pelvis with contrast from 07/03/2017. Technique: Multidetector CT scanning of the abdomen and pelvis was performed from the level of the lung bases to the inferior pubic rami without the use of contrast material. Coronal and sagittal multiplanar reformations were obtained. RADIATION DOSE: Total DLP: 742.20 mGy*cm Dose modulation, iterative reconstruction, and/or weight based adjustment of the mA/kV was utilized to reduce the radiation dose to as low as reasonably achievable. FINDINGS: Stable pulmonary micronodules identified within the left lung base, unchanged in appearance from the prior examination from 07/03/2017 suggesting a benign etiology. The visualized intrathoracic contents are otherwise unremarkable. The liver appears enlarged and diffusely decreased in attenuation suggestive of fatty infiltration. No focal hepatic abnormality is identified on this noncontrast examination. The gallbladder is surgically absent. There is no biliary ductal dilatation. The stomach, spleen, pancreas, and bilateral adrenal glands demonstrate unremarkable noncontrast appearance. Incidentally noted is a splenule adjacent to the spleen. The kidneys are normal in size and location. There is no evidence for nephrolithiasis or hydronephrosis. No ureteral stone or dilatation is appreciated. The urinary bladder demonstrates no significant abnormalities. The uterus is surgically absent. No abnormal adnexal masses are identified. The abdominal aorta is normal course and caliber. The IVC is normal in caliber. Please note evaluation of the bowel is limited without the use of enteric contrast material. The visualized loops of small and large bowel demonstrate no evidence of obstruction or inflammation. The appendix is visualized and appears unremarkable. There is no ascites or intraperitoneal free air. No abnormally enlarged lymph nodes are identified within the abdomen and pelvis. There are small bilateral fat- containing inguinal hernias present. The osseous structures demonstrate no evidence for acute fracture or destructive process. The extraperitoneal soft tissues are unremarkable. IMPRESSION: No acute abdominopelvic process identified to correlate with the patient's abdominal pain. CT findings suggestive of hepatic steatosis. Status post cholecystectomy. Signed by: Dr. Kashif Lopez MD on 09/25/2019 11:42 AM Dictated By: KASHIF LOPEZ MD 1142 Transcribed By: SERAFIN on 09/25/19 1142 COPY TO: NAWAF HERNANDEZ MD Novel Coronavirus 2019 nCoV 2019-07-31 17:40:00 Test Item Novel Coronavirus 2019 nCoV (test code = COVID19) Negative Nega tive Performed by: [facility] [address], [address] [place], [place] [address] CLIA#: [id number] Does patient have the clinical criteria consistent with COVID-19? YIs the patien t going to be discharged home? YURINALYSIS [id number] 22:17:00* Test Item Value Reference Range Interpretation Comments UA COLOR (test code = COLU) YELLOW YEL/STRAW UA APPEARANCE (test code = APPU) CLOUDY CLEAR A UA GLUCOSE DIPSTICK (test code = DGLUU) NEGATIVE NEGATIVE UA BILIRUBIN DIPSTICK (test code = BILU) NEGATIVE NEGATIVE UA KETONE DIPSTICK (test code = KETU) NEGATIVE NEGATIVE UA SPECIFIC GRAVITY (test code = SGU) 1.021 1.005-1.030 N UA BLOOD DIPSTICK (test code = TANJA) NEGATIVE NEGATIVE UA PH DIPSTICK (test code = SHANIKA) 6.0 5.0-7.0 N UA PROTEIN DIPSTICK (test code = PROU) 1+ NEGATIVE A UA UROBILINIOGEN DIPSTICK (test code = URO) 0.2 mg/dL 0.2-1.0 UA NITRITE DIPSTICK (test code = CHICO) NEGATIVE NEGATIVE UA LEUKOCYTE ESTERASE DIPSTICK (test code = LEUU) TRACE NEGA TIVE A UA RBC (test code = RBCU) NONE SEEN RBC/HPF 0-3 UA WBC NO REFLEX (test code = WBCUCL) 10-20 WBC/HPF 0-3 A UA BACTERIA (test code = BACU) TRACE /HPF NONE SEEN UA SQUAMOUS CELLS (test code = SQU) 11-25 /HPF NONE SEEN A UA MUCUS (test code = MUCU) 1+ /LPF NONE SEEN UA AMORPHOUS SEDIMENT (test code = AMORU) TRACE /HPF NONE COMPREHENSIVE METABOLIC [id number] 21:37:00* Test Item Value Reference Range Interpretation Comments SODIUM (test code = NA) mEq/L 134-147 POTASSIUM (test code = K) mEq/L 3.4-5.0 CHLORIDE (test code = CL) mEq/L 100-108 CARBON DIOXIDE (test code = CO2) mEq/L 21-33 ANION GAP (test code = GAP) 0-20 GLUCOSE (test code = GLU) mg/dL 70-110 BLOOD UREA NITROGEN (test code = BUN) mg/dL 7-18 GLOMERULAR FILTRATION RATE (test code = GFR) 95-105 CREATININE (test code = CREAT) mg/dL 0.6-1.3 TOTAL PROTEIN (test code = PROT) g/dL 6.4-8.2 ALBUMIN (test code = ALB) g/dL 3.4-5.0 CALCIUM (test code = CA) mg/dL 8.0-10.5 BILIRUBIN TOTAL (test code = BILT) MG/DL <1.5 SGOT/AST (test code = AST) IUnit/L 15-37 SGPT/ALT (test code = ALT) IUnit/L 15-65 ALKALINE PHOSPHATASE TOTAL (test code = ALKP) IUnit/L 20-125 [id number] 21:37:00* Test Item Value Reference Range Interpretation Comments TROPONIN-I (test code = TROPI) < 0.015 ng/mL 0.000-0.045 N Negative: <= 0.045 Positive: >= 0.046 Correlation with serial results, other cardiac markers andclinical findings is necessary to determine the clinicalsignificance of this result. Results using different methodologies should not be comparedto one another as quantitative results may vary by method. COMPREHENSIVE METABOLIC [id number] 21:37:00* Test Item Value Reference Range Interpretation Comments SODIUM (test code = NA) 139 mEq/L 134-147 N POTASSIUM (test code = K) 3.9 mEq/L 3.4-5.0 N CHLORIDE (test code = CL) 109 mEq/L 100-108 H CARBON DIOXIDE (test code = CO2) 22 mEq/L 21-33 N ANION GAP (test code = GAP) 12 0-20 N GLUCOSE (test code = GLU) 97 mg/dL 70-110 N BLOOD UREA NITROGEN (test code = BUN) 12 mg/dL 7-18 N GLOMERULAR FILTRATION RATE (test code = GFR) 88.9 95-105 L Units of measure = ml/min/1.73 m2 CREATININE (test code = CREAT) 0.7 mg/dL 0.6-1.3 N TOTAL PROTEIN (test code = PROT) 8.9 g/dL 6.4-8.2 H ALBUMIN (test code = ALB) 3.80 g/dL 3.4-5.0 N CALCIUM (test code = CA) 8.7 mg/dL 8.0-10.5 N BILIRUBIN TOTAL (test code = BILT) 0.2 MG/DL <1.5 N SGOT/AST (test code = AST) 49 IUnit/L 15-37 H SGPT/ALT (test code = ALT) 56 IUnit/L 15-65 N ALKALINE PHOSPHATASE TOTAL (test code = ALKP) 103 IUnit/L 20-125 N [id number] 21:37:00* Test Item Value Reference Range Interpretation Comments TROPONIN-I (test code = TROPI) < 0.015 ng/mL 0.000-0.045 N Negative: <= 0.045 Positive: >= 0.046 Correlation with serial results, other cardiac markers andclinical findings is necessary to determine the clinicalsignificance of this result. Results using different methodologies should not be comparedto one another as quantitative results may vary by method. CBC W/AUTO [id number] 21:19:00* Test Item Value Reference Range Interpretation Comments WHITE BLOOD CELL (test code = WBC) 10.79 x10 3/uL 4.5-11.0 RED BLOOD CELL (test code = RBC) 4.13 x10 6/uL 3.54-5.02 N HEMOGLOBIN (test code = HGB) 13.5 g/dL 11.0-15.0 N HEMATOCRIT (test code = HCT) 39.2 % 33.0-45.0 N MEAN CELL VOLUME (test code = MCV) 94.9 fL 81.0-99.0 N MEAN CELL HGB (test code = MCH) 32.7 pg 27.0-33.0 N MEAN CELL HGB CONCETRATION (test code = MCHC) 34.4 g/dL 33.0-37. 0 N RED CELL DISTRIBUTION WIDTH CV (test code = RDW) 12.7 % 11.5- 14.5 N RED CELL DISTRIBUTION WIDTH SD (test code = RDW-SD) 43.8 fL 37 .0-54.0 N PLATELET COUNT (test code = PLT) 235 x10 3/uL 150-400 N MEAN PLATELET VOLUME (test code = MPV) 9.9 fL 7.0-9.0 H NEUTROPHIL % (test code = NT%) 46.5 % 56.0-77.0 L IMMATURE GRANULOCYTE % (test code = IG%) 0.2 % 0.0-2.0 N LYMPHOCYTE % (test code = LY%) 46.3 % 14.0-32.0 H MONOCYTE % (test code = MO%) 3.9 % 4.8-9.0 L EOSINOPHIL % (test code = EO%) 2.6 % 0.3-3.7 N BASOPHIL % (test code = BA%) 0.5 % 0.0-2.0 N NUCLEATED RBC % (test code = NRBC%) 0.0 % 0-0 N NEUTROPHIL # (test code = NT#) 5.02 x10 3/uL 2.0-7.6 N IMMATURE GRANULOCYTE # (test code = IG#) 0.02 x10 3/uL 0.00-0.03 N LYMPHOCYTE # (test code = LY#) 5.00 x10 3/uL 1.0-3.8 H MONOCYTE # (test code = MO#) 0.42 x10 3/uL 0.1-0.8 N EOSINOPHIL # (test code = EO#) 0.28 x10 3/uL 0.0-0.2 H BASOPHIL # (test code = BA#) 0.05 x10 3/uL 0.0-0.2 N NUCLEATED RBC # (test code = NRBC#) 0.00 x10 3/uL 0.0-0.1 N MANUAL DIFF REQUIRED (test code = MDIFF) NO - XR CHEST 2 [id number] 20:12:00 FAX: Aquiles Self [phone] [place]: St: [facility] FAX: Yvette Oliveira NP [phone] Name: JANAY FLEMING [facility] : 1970 Age/S: 49/F [address] [place] [address] Unit #: [id number] Loc: [place] [address] Phys: Yvette Oliveira NP Acct: [id number] Dis Date: Status: REG ER PHONE #: [phone] Exam Date: 07/28/20192003 FAX #: [phone] Reason: chest tightness EXAMS: CPT CODE: [id number] XR CHEST 2 V [id number] Two-view chest. INDICATION: Chest tightness. Headache. Comparison: 04/20/2019 chest radiograph. FINDINGS: The cardiomediastinal silhouette is normal in size. Lungs are clear. C ostophrenic angles are sharp. No suspicious osseous abnormality is seen. IMPRESSION: No evidence for acute cardiopulmonary disease. SL: SG-H Electronically Si gned by Krystina Brand on 07/28/2019 at 2011 Reported and signed by: Anil Brand M.D. CC: Aquiles Rangel MD; Yvette Oliveira NP Technologist: ELIZABETH Macario RT(R) Trnemil Tsai te/Time/By: 07/28/2019 (2011) : By: [email or web address] Orig Print D/T: S: 07/27 (2014) PAGE 1 Signed Report URINALYSIS [id number] 19:49:00* Test Item Value Reference Range Interpretation Comments UA COLOR (test code = COLU) YELLOW YELLOW UA APPEARANCE (test code = APPU) TURBID CLEAR A UA GLUCOSE DIPSTICK (test code = DGLUU) norm mg/dL NEGATIVE UA BILIRUBIN DIPSTICK (test code = BILU) NEGATIVE mg/dL NEGATIVE UA KETONE DIPSTICK (test code = KETU) neg mg/dL NEGATIVE UA SPECIFIC GRAVITY (test code = SGU) 1.020 1.001-1.035 UA BLOOD DIPSTICK (test code = TANJA) 25 (1+) Baldev/uL NEGATIVE A UA PH DIPSTICK (test code = SHANIKA) 6.0 5.0-8.0 UA PROTEIN DIPSTICK (test code = PROU) 15 (TRACE) mg/dL Neg-15 A UA UROBILINIOGEN DIPSTICK (test code = URO) norm mg/dL 0.0-0.2 UA NITRITE DIPSTICK (test code = CHICO) NEGATIVE NEGATIVE UA LEUKOCYTE ESTERASE DIPSTICK (test code = LEUU) 25 Suzy/uL (Tra ce) uL NEGATIVE A UA WBC (test code = WBCU) 3-5 per HPF 0-5 UA RBC (test code = RBCU) 3-5 per HPF 0-5 UA EPITHELIAL CELLS (test code = EPIU) Few (2-5/hpf) per HPF Few UA BACTERIA (test code = BACU) MANY per HPF NONE A UA AMORPHOUS SEDIMENT (test code = AMORU) LOADED per LPF NONE A Urine Source? Clean CatchUrine [id number] 22:09:48* Test Item Value Reference Range Interpretation Comments Urine culture isolate (test code = 31835-9) Streptococ cus group B10-3 cfu/mlThe performance characteristics of this assay on this isolatewere validated by the Microbiology Laboratory at [facility]. This source has not been approved by the U.S. Food and Drug Administration. The results are not intended to be used as the sole means for clinical diagnosis or patient management. The Microbiology Laboratory is authorized under the clinical Laboratory Improvement Amendments of 1988 (CLIA-88) to perform high complexity testing. A Specimen InformationSpecimen Source: UrineSpecimen Site: Clean catch Lab Interpretation (test code = 26538-8) Abnormal [facility] MethodistChlamydia gonorrhoeae and trichomonas [id number] 20:20:19 * Test Item Value Reference Range Interpretation Comments Chlamydia trachomatis by PCR (test code = 56176-6) Neg ative for Chlamydia trachomatis. Specimen Information Specimen Source: UrineSpecimen Site: Urine, clean catch Neisseria gonorrhoeae by PCR (test code = 38671-6) Neg ative for Neisseria gonorrhoeae. Trichomonas vaginalis by PCR (test code = 03850-5) Neg ative for Trichomonas vaginalis. [facility] MethodistUS Pelvic Fxnesrktwnnb6716-21-99 09:17:07Hm Interface, Radiology Results - 06/20/2019 9:20 AM CDTEXAMINATION: US PELVIC TRANSABDOMINAL, US PELVIC TRANSVAGINALCLINICAL HISTORY: Vaginal bleeding abnormal non-COMPARISON: None.TECHNIQUE:Transabdominal and endovaginal sonographic images of the pelvis were obtained. Grayscale, color Doppler, and spectral waveform analysis of the ovarian vessels was performed.FINDINGS:The uterus has been previously removed.. The right ovary and left ovary are not iden tified.TRANSVAGINAL IMAGING: The uterus has been previously removed.The left and right ovaries are not identified. There are no adnexal masses present.The bladd er is unremarkable. IMPRESSION:1. The uterus has been previously removed.2. T he right and left ovaries are not identified.3. There are no adnexal masses pres ent.[id number] MethodistUS Pelvic Fgxladrbywqnhe8506-83-33 09:17:07Hm Interface, Radiology Results 06/20/2019 9:20 AM CDTEXAMINATION: US PELVIC TRANSABDOMINAL, US PELVIC TRANSVAGINALCLINICAL HISTORY: Vaginal bleeding abnormal non-COMPARISON: None.TECHNIQUE:Transabdominal and endovaginal sonographic images of the pelvis were obtained. Grayscale, color Doppler, and spectral waveform analysis of the ovarian vessels was performed.FINDINGS:The uterus has been previously removed.. The right ovary and left ovary are not iden tified.TRANSVAGINAL IMAGING: The uterus has been previously removed.The left and right ovaries are not identified. There are no adnexal masses present.The bladd er is unremarkable. IMPRESSION:1. The uterus has been previously removed.2. T he right and left ovaries are not identified.3. There are no adnexal masses pres ent.[id number]-[id number] MethodistType and sjcqmd1995-58-47 08:16:00* Test Item Value Reference Range Interpretation Comments ABO grouping (test code = 883-9) A Rh type (test code = 26875-2) POS Antibody screen (gel) (test code = 890-4) NEG [facility] MethodistProthrombin time with [id number] 07:41:36* Test Item Value Reference Range Interpretation Comments Prothrombin time (test code = 5902-2) 12.5 11.5- 14.5 sec INR (test code = 59978-1) 0.9 Th e International Normalized Ratio (INR) is a therapeutic monitoring tool for patients who are stable on oral anticoagulant therapy. An INR of 2.0-3.0 is suggested for deep vein thrombosis/pulmonary embolism. [facility] MethodistPartial thromboplastin time, cbiimbbet2441-12-64 07:41:36* Test Item Value Reference Range Interpretation Comments PTT (test code = 36462-5) 32.2 23.0- 36.0 sec PTT therapeutic range for unfractionated heparin is61.0-112.0 seconds which corresponds to Anti-Xa0.3-0.7 U/ml. [facility] MethodistUrinalysis screen and microscopy, with reflex to culture 2019-06-20 07:37:09* Test Item Value Reference Range Interpretation Comments Specimen site (test code = 3227120) Clean catch Color, UA (test code = 5778-6) Yellow Appearance, UA (test code = 5767-9) Cloudy Specific gravity, UA (test code = 5811-5) 1.009 1.001-1.035 pH, UA (test code = 5803-2) 6.0 5.0-8.5 Protein, UA (test code = 44210-3) Negative Negative Glucose, UA (test code = 25277-3) Negative Negative Ketones, UA (test code = 2514-8) Negative Negative Bilirubin, UA (test code = 5770-3) Negative Negative Blood, UA (test code = 5794-3) Negative Negative Nitrite, UA (test code = 5802-4) Negative Negative Urobilinogen, UA (test code = 97595-0) Negative <2.0 Leukocyte esterase, UA (test code = 5799-2) Trace Negative A Epithelial cells, UA (test code = 5787-7) Many Few /HPF Round epithelial cells, UA (test code = 78723-9) Many 0- 1 /HPF WBC, UA (test code = 5821-4) 11-20 0- 4 /HPF H RBC, UA (test code = 69243-5) 21-40 0- 5 /HPF H Bacteria, UA (test code = 26760-2) Few None seen Yeast, UA (test code = 69476-2) Moderate A Yeast with pseudohyphae, UA (test code = 58413-0) None seen Hyaline casts, UA (test code = 5796-8) 3-5 /LPF Lab Interpretation (test code = 27488-3) Abnormal [facility] MethodistCBC with platelet and gwbwblhelnpu5621-02-01 07:34:46* Test Item Value Reference Range Interpretation Comments WBC (test code = 96009-3) 8.06 4.50- 11.00 k/uL RBC (test code = 51397-7) 3.72 m/uL 4.2-5.5 L HGB (test code = 718-7) 12.4 g/dL 12-16 HCT (test code = 4544-3) 35.3 % 37-47 L MCV (test code = 787-2) 94.9 fL 82-100 MCH (test code = 785-6) 33.3 pg 27-34 MCHC (test code = 786-4) 35.1 g/dL 31-37 RDW - SD (test code = 16825-4) 45.0 fL 37-55 MPV (test code = 45428-6) 9.9 fL 8.8-13.2 Platelet count (test code = 13607-0) 229 150- 400 k/uL Nucleated RBC (test code = 14226-3) 0.00 /100 WBC Neutrophils (test code = 60189-8) 35.3 % 39-69 L Lymphocytes (test code = 04746-6) 53.6 % 25-45 H Monocytes (test code = 92555-7) 5.2 % 0-10 Eosinophils (test code = 56376-0) 5.3 % 0-5 H Basophils (test code = 55762-3) 0.5 % 0-1 Lab Interpretation (test code = 41449-8) Abnormal [facility] MethodisthCG qualitative, urine favgoi1215-45-81 07:32:26* Test Item Value Reference Range Interpretation Comments hCG qualitative, urine (test code = 2106-3) Negative Negative The manufacturers stated sensitivity of HcG test for serum is >/= 10 mIU/ml and urine is >/= 20mIU/ml. [facility] CenteristLACTIC [id number] 19:32:00* Test Item Value Reference Range Interpretation Comments LACTIC ACID (test code = LACT) 1.4 mmol/L 0.4-1.9 N - CT MAXIFAC W/COQSNAOA3036-71-45 18:44:00 Name: JANAY FLEMING [facility] : 1970 Age/S: 49 / F Jazmyn Bowers Unit #: [id number] Loc: RAFAELA Estrada [address] Phys: Annie Gomes MD Acct: [id number] Dis Date: Status: REG ER PHONE #: [phone] Exam Date: 04/20/2019 184 FAX #: [phone] Reason: dental infection EXAMS: CPT CODE: [id number] CT MAXIFAC W/CONTRAST 00454 REASON FOR EXAM: dental infection EXAM ORDER DATE: 04/20/2019 4:48 PM Ordering: Annie Gomes MD Attending:Annie Gomes MD Location: PROCEDURE: - CT MAXIFAC W/CONTRAST FINDINGS: CT images of the face were obtained without IV contrast at 2.5 mm thickness. Dose modulation, iterative reconstruction, and/or weight based adjustment of the MA/KV was utilized to reduce the radiation dose to as low as reasonably achievable. The globes are intact. The orbital delgado are unremarkable without evidence of orbital blowout fracture. The nasal bone is unremarkable. The mandibles are within normal limits. No evidence of facial fracture The visualized paranasal sinuses are well aerated IMPRESSION: Small calcified lesion (1.5 cm) in the left lobe of the thyroid gland. Minimal soft tissue swelling in the left anterior ma ndibular area. No evidence of focal abscess at 1844 Reported and signed by: Laci Walters M.D. CC: Dr. Aquiles Rangel; Annie Gomes MD Technologist:Alisha Rangel RT(R)(CT) CTDI: DLP: Trnscb Date/Time: 04/20/2019 (184) tMERYL Orig Print D/T: S: 04/20/2019 (1847) PAGE 1 Signed Report URINALYSIS [id number] 18:15:00* Test Item Value Reference Range Interpretation Comments UA COLOR (test code = COLU) Light-Yellow YELLOW UA APPEARANCE (test code = APPU) CLEAR CLEAR UA GLUCOSE DIPSTICK (test code = DGLUU) NEGATIVE mg/dL NEGATIVE UA BILIRUBIN DIPSTICK (test code = BILU) NEGATIVE mg/dL NEGATIVE UA KETONE DIPSTICK (test code = KETU) NEGATIVE mg/dL NEGATIVE UA SPECIFIC GRAVITY (test code = SGU) 1.015 1.001-1.035 UA BLOOD DIPSTICK (test code = TANJA) 0.03 mg/dL (Trace) mg/dL NEGATI VE A UA PH DIPSTICK (test code = SHANIKA) 6.0 5.0-8.0 UA PROTEIN DIPSTICK (test code = PROU) 10 (Trace) mg/dL NEGATIVE A UA UROBILINIOGEN DIPSTICK (test code = URO) Normal mg/dL NEGATIVE UA NITRITE DIPSTICK (test code = CHICO) NEGATIVE NEGATIVE UA LEUKOCYTE ESTERASE W REFLEX (test code = LEUUR) NEGATIVE Suzy/uL NEGATIVE UA WBC (test code = WBCU) 0-5 per HPF 0-5 UA RBC (test code = RBCU) NONE SEEN #/HPF 0-5 UA EPITHELIAL CELLS (test code = EPIU) FEW per HPF FEW UA BACTERIA (test code = BACU) NONE SEEN #/HPF NONE UA MUCUS (test code = MUCU) FEW #/LPF FEW Urine Source? Clean CatchURINALYSIS [id number] 18:13:00* Test Item Value Reference Range Interpretation Comments UA COLOR (test code = COLU) Light-Yellow YELLOW UA APPEARANCE (test code = APPU) CLEAR CLEAR UA GLUCOSE DIPSTICK (test code = DGLUU) NEGATIVE mg/dL NEGATIVE UA BILIRUBIN DIPSTICK (test code = BILU) NEGATIVE mg/dL NEGATIVE UA KETONE DIPSTICK (test code = KETU) NEGATIVE mg/dL NEGATIVE UA SPECIFIC GRAVITY (test code = SGU) 1.015 1.001-1.035 UA BLOOD DIPSTICK (test code = TANJA) 0.03 mg/dL (Trace) mg/dL NEGATI VE A UA PH DIPSTICK (test code = SHANIKA) 6.0 5.0-8.0 UA PROTEIN DIPSTICK (test code = PROU) 10 (Trace) mg/dL NEGATIVE A UA UROBILINIOGEN DIPSTICK (test code = URO) Normal mg/dL NEGATIVE UA NITRITE DIPSTICK (test code = CHICO) NEGATIVE NEGATIVE UA LEUKOCYTE ESTERASE W REFLEX (test code = LEUUR) NEGATIVE Suzy/uL NEGATIVE UA WBC (test code = WBCU) per HPF 0-5 UA RBC (test code = RBCU) per HPF 0-5 UA EPITHELIAL CELLS (test code = EPIU) per HPF Few UA BACTERIA (test code = BACU) per HPF NONE Urine Source? Clean Catch- XR CHEST 1 [id number] 18:07:00 FAX: Aquiles Self [phone] [place]: St: [facility] FAX: Annie Gomes MD [phone] Name: JANAY FLEMING [facility] : 1970 Age/S: 49/F [address] [facility] Unit #: [id number] Loc: [place] [address] Phys: Annie Gomes MD Acct: [id number] Dis Date: Status: REG ER PHONE #: [phone] Exam Date: 04/20/2019 1746 FAX #: [phone] Reason: CODE SEPSIS EXAMS: CPT CODE: [id number] XR CHEST 1 V 82546 REASON FOR EXAM: CODE SEPSIS EXAM ORDER DATE: 04/20/2019 4:48 PM Ordering: Annie Gomes MD Attendin g:Annie Gomes MD Location: PROCEDURE: - XR CHEST 1 V COMPARISON: 09/10/2018 FINDINGS: Portable AP front al view of the chest obtained at 5:45 PM shows clear lungs without evidenc e of consolidation. There is no evidence of effusion. The heart size is wi thin normal limits. Pulmonary vasculatures are unremarkable. IMPRESSION: No active disease. at 1807 Reported and signed by: Laci Walters M.D. CC: Dr. Aquiles Rangel; Annie Gomes MD Technologist: Sirisha Bai RT(R); Lora Espinal(R) Trn scrd Date/Time/By: 04/20/2019 (1806) : By: Juanita.VTL Orig Print D/T: S : 04/20/2019 (1809) PAGE 1 Signed Report PROCALCITONIN (PCT)2019-04-20 17:34:00* Test Item Value Reference Range Interpretation Comments PROCALCITONIN (PCT) (test code = PROCAL) 0.07 ng/ml Concentration Interpretation (ng/mL) <0.51 Sepsis is not likely. Local bacterial infection is possible. (LOW RISK for progression to Sepsis) 0.51 - 2.00 Sepsis is possible, but other conditions are known to elevate PCT as well. (MODERATE RISK for progression to Sepsis) > 2.00 Sepsis is likely, unless other causes are known. (HIGH RISK for progression to Severe Sepsis or Septic Shock) 10.00 High likelihood of Severe Sepsis or Septic or higher Shock. *Increased PCT levels may not always be related to systemic bacterial infection.*Low PCT levels do not automatically exclude the presence of bacterial infection.*All results should be interpreted taking into account the patients history. LACTIC [id number] 17:29:00* Test Item Value Reference Range Interpretation Comments LACTIC ACID (test code = LACT) 2.3 mmol/L 0.4-1.9 HH Results called to [id number] by V.[email or web address].PA 04/20/19 1728Critical results verified and read back by Nurse? Y BASIC METABOLIC [id number] 17:26:00* Test Item Value Reference Range Interpretation Comments SODIUM (test code = NA) 139 mmol/L 136-145 N POTASSIUM (test code = K) 3.1 mmol/L 3.5-5.1 L CHLORIDE (test code = CL) 104.0 mmol/L 98-107 N CARBON DIOXIDE (test code = CO2) 27.0 mmol/L 21-32 N ANION GAP (test code = GAP) 11.1 10-20 N GLUCOSE (test code = GLU) 107 mg/dL 74-106 H BLOOD UREA NITROGEN (test code = BUN) 12 mg/dL 7-18 N GLOMERULAR FILTRATION RATE (test code = GFR) > 60 mL/min >=60 Estimated GFR by using Modified MDRD formula.Chronic kidney disease is defined as either kidney damageor GFR <60 mL/min/1.73 m2 for >3 months. CREATININE (test code = CREAT) 0.80 mg/dL 0.55-1.02 N Note change in reference range due to change in reagent. BUN/CREATININE RATIO (test code = BUN/CREA) 15.9 10-20 N CALCIUM (test code = CA) 8.9 mg/dL 8.5-10.1 N HEPATIC FUNCTION [id number] 17:26:00* Test Item Value Reference Range Interpretation Comments TOTAL PROTEIN (test code = PROT) 8.7 gram/dL 6.4-8.2 H ALBUMIN (test code = ALB) 3.7 g/dL 3.4-5.0 N GLOBULIN (test code = GLOB) 5.0 gram/dL 2.7-4.2 H ALBUMIN/GLOBULIN RATIO (test code = A/G) 0.7 0.75-1.50 L BILIRUBIN TOTAL (test code = BILT) 0.30 mg/dL 0.0-1.0 N BILIRUBIN DIRECT (test code = BILD) 0.09 mg/dL 0.0-0.20 N SGOT/AST (test code = AST) 57 IUnit/L 15-37 H SGPT/ALT (test code = ALT) 53 IUnit/L 12-78 N ALKALINE PHOSPHATASE TOTAL (test code = ALKP) 125 IUnit/L 45-117 H Note change in reference range due to change in reagent. [id number] 17:26:00* Test Item Value Reference Range Interpretation Comments TROPONIN-I (test code = TROPI) <0.015 ng/mL 0-0.045 N BASIC METABOLIC [id number] 17:19:00* Test Item Value Reference Range Interpretation Comments SODIUM (test code = NA) 139 mmol/L 136-145 N POTASSIUM (test code = K) 3.1 mmol/L 3.5-5.1 L CHLORIDE (test code = CL) 104.0 mmol/L 98-107 N CARBON DIOXIDE (test code = CO2) mmol/L 21-32 ANION GAP (test code = GAP) 10-20 GLUCOSE (test code = GLU) mg/dL 74-106 BLOOD UREA NITROGEN (test code = BUN) mg/dL 7-18 GLOMERULAR FILTRATION RATE (test code = GFR) mL/min >=60 CREATININE (test code = CREAT) mg/dL 0.55-1.02 BUN/CREATININE RATIO (test code = BUN/CREA) 10-20 CALCIUM (test code = CA) mg/dL 8.5-10.1 HEPATIC FUNCTION [id number] 17:19:00* Test Item Value Reference Range Interpretation Comments TOTAL PROTEIN (test code = PROT) gram/dL 6.4-8.2 ALBUMIN (test code = ALB) g/dL 3.4-5.0 GLOBULIN (test code = GLOB) gram/dL 2.7-4.2 ALBUMIN/GLOBULIN RATIO (test code = A/G) 0.75-1.50 BILIRUBIN TOTAL (test code = BILT) mg/dL 0.0-1.0 BILIRUBIN DIRECT (test code = BILD) mg/dL 0.0-0.20 SGOT/AST (test code = AST) IUnit/L 15-37 SGPT/ALT (test code = ALT) IUnit/L 12-78 ALKALINE PHOSPHATASE TOTAL (test code = ALKP) IUnit/L 45-117 [id number] 17:19:00* Test Item Value Reference Range Interpretation Comments TROPONIN-I (test code = TROPI) ng/mL 0-0.045 CBC W/AUTO [id number] 17:07:00* Test Item Value Reference Range Interpretation Comments WHITE BLOOD CELL (test code = WBC) K/mm3 4.5-12.5 RED BLOOD CELL (test code = RBC) mill/mm3 3.7-5.2 HEMOGLOBIN (test code = HGB) 13.5 gram/dL 11.5-15.5 N HEMATOCRIT (test code = HCT) 37.8 % 36.0-46.0 N MEAN CELL VOLUME (test code = MCV) fL 80-98 MEAN CELL HGB (test code = MCH) picogram 27.0-33.0 MEAN CELL HGB CONCETRATION (test code = MCHC) gram/dL 33.0-36. 0 RED CELL DISTRIBUTION WIDTH (test code = RDW) % 11.6-16. 2 RED CELL DISTRIBUTION WIDTH SD (test code = RDW-SD) fL 37 .0-51.0 PLATELET COUNT (test code = PLT) K/mm3 150-450 MEAN PLATELET VOLUME (test code = MPV) fL 6.7-11.0 NEUTROPHIL % (test code = NT%) % 39.0-69.0 IMMATURE GRANULOCYTE % (test code = IG%) % 0.0-5.0 LYMPHOCYTE % (test code = LY%) % 25.0-55.0 MONOCYTE % (test code = MO%) % 0.0-10.0 EOSINOPHIL % (test code = EO%) % 0.0-5.0 BASOPHIL % (test code = BA%) % 0.0-1.0 NEUTROPHIL # (test code = NT#) K/mm3 1.8-7.7 LYMPHOCYTE # (test code = LY#) K/mm3 1.0-5.0 MONOCYTE # (test code = MO#) K/mm3 0-0.8 EOSINOPHIL # (test code = EO#) K/mm3 0.0-0.5 BASOPHIL # (test code = BA#) K/mm3 0.0-0.2 CBC W/AUTO [id number] 17:07:00* Test Item Value Reference Range Interpretation Comments WHITE BLOOD CELL (test code = WBC) 13.2 K/mm3 4.5-12.5 H RED BLOOD CELL (test code = RBC) 4.14 mill/mm3 3.7-5.2 N HEMOGLOBIN (test code = HGB) 13.5 gram/dL 11.5-15.5 N HEMATOCRIT (test code = HCT) 37.8 % 36.0-46.0 N MEAN CELL VOLUME (test code = MCV) 91.3 fL 80-98 N MEAN CELL HGB (test code = MCH) 32.6 picogram 27.0-33.0 N MEAN CELL HGB CONCETRATION (test code = MCHC) 35.7 gram/dL 33.0-36. 0 N RED CELL DISTRIBUTION WIDTH (test code = RDW) 13.3 % 11.6-16. 2 N RED CELL DISTRIBUTION WIDTH SD (test code = RDW-SD) 44.6 fL 37 .0-51.0 N PLATELET COUNT (test code = PLT) 261 K/mm3 150-450 N MEAN PLATELET VOLUME (test code = MPV) 9.1 fL 6.7-11.0 N NEUTROPHIL % (test code = NT%) 56.7 % 39.0-69.0 N IMMATURE GRANULOCYTE % (test code = IG%) 0.5 % 0.0-5.0 N LYMPHOCYTE % (test code = LY%) 32.5 % 25.0-55.0 N MONOCYTE % (test code = MO%) 3.8 % 0.0-10.0 N EOSINOPHIL % (test code = EO%) 6.0 % 0.0-5.0 H BASOPHIL % (test code = BA%) 0.5 % 0.0-1.0 N NUCLEATED RBC % (test code = NRBC%) 0.0 % 0-0 N NEUTROPHIL # (test code = NT#) 7.47 K/mm3 1.8-7.7 N IMMATURE GRANULOCYTE # (test code = IG#) 0.07 x10 3/uL 0-0.03 H LYMPHOCYTE # (test code = LY#) 4.28 K/mm3 1.0-5.0 N MONOCYTE # (test code = MO#) 0.50 K/mm3 0-0.8 N EOSINOPHIL # (test code = EO#) 0.79 K/mm3 0.0-0.5 H BASOPHIL # (test code = BA#) 0.06 K/mm3 0.0-0.2 N NUCLEATED RBC # (test code = NRBC#) 0.00 K/mm3 0.0-0.1 N - XR ANKLE 3 + V [id number] 22:54:00 FAX: Aquiles Self [phone] [place]: St: [facility] FAX: Rivas Hernandez [phone] Name: JANAY FLEMING [facility] : 1970 Age/S: 48/F [address] [place] [address] Unit #: [id number] Loc: [place] [address] Phys: Rivas Heranndez Acct: [id number] Dis Date: Status: REG ER PHONE #: [phone] Exam Date: 03/19/20196 FAX #: [phone] Reason: lateral malleolus and calcaneus with tenderness EXAMS: CPT CODE: [id number] XR ANKLE 3 + V RT [address]378 Right ankle, 3 views and right foot, 3 views dated 03/19/2019. HISTORY: Posttraumatic pain. Twisting injury. Right a nkle: AP, lateral oblique views of the right ankle demonstrate no evidence of an acute fracture of the distal right tibia or fibula. The ta miguel appears intact and normally located. The ankle mortise appears preserved. Right foot: AP, lateral and oblique views of the right foot demonstrate no evidence of acute fracture, dislocation or bone destruction. Note is made of a small bone spur at the calcaneal i nsertion the plantar fascia. IMPRESSION: 1. No ac [place] bony abnormalities of the right ankle or right foot are detected. SL: 131 at 1493 * * Reported and signed by: Kameron Sinclair M.D. CC: Aquiles Rangel MD; Rivas PRINCE Technologist: RT Joyce(R) Trnscrd Date/Time/By: 03/19/2019 (2253) : By: Myah Orig Print D/T: S: 03/19/2019 (4439) PAGE 1 Signed Report - XR FOOT 3 + V [id number] 22:54:00 FAX: Aquiles Self [phone] [place]: St: REG FAX: Rivas Hernandez [phone] Name: JANAY FLEMING [facility] : 1970 Age/S: 48/F [address] [place] [address] Unit #: [id number] Loc: [place] X [address] Phys: Rivas Hernandez Acct: [id number] Dis Date: Status: REG ER PHONE #: [phone] Exam Date: 03/19/2019 2246 FAX #: [phone] Reason: lateral malleolus and calcaneus with tenderness EXAMS: CPT CODE: [id number] XR FOOT 3 + [place] [address]29 Right ankle, 3 views and right foot, 3 views dated 03/19/2019. HISTORY: Posttraumatic pain. Twisting injury. Right a nkle: AP, lateral oblique views of the right ankle demonstrate no evidence of an acute fracture of the distal right tibia or fibula. The ta miguel appears intact and normally located. The ankle mortise appears preserved. Right foot: AP, lateral and oblique views of the right foot demonstrate no evidence of acute fracture, dislocation or bone destruction. Note is made of a small bone spur at the calcaneal i nsertion the plantar fascia. IMPRESSION: 1. No ac [place] bony abnormalities of the right ankle or right foot are detected. SL: 131 at 2799 * * Reported and signed by: Kameron Sinclair M.D. CC: Aquiles Rangel MD; Rivas PRINCE Technologist: RT Joyce(R) Trnscrd Date/Time/By: 03/19/2019 (7201) : By: Myah Orig Print D/T: S: 03/19/2019 (7231) PAGE 1 Signed Report [id number] 17:11:00 RUN DATE: 03/12/19 [facility] PAGE 1 RUN TIME: 1711 Specimen Inqui ry RUN USER: INTERFACE PATIENT: JANAY FLEMING ACCT #: [id number] LOC: [facility] U #: [id number] AGE/SX: 48/F ROOM: RE03/11/19REG DR: Zeus Swanson MD : 70 BED: DIS: STATUS: [facility] TLOC: SPEC #: [id number] RECD: 03/11/19 STATUS: GAUTAM REQ #: [id number] BRE: 03/11/19- SUBM DR: Zeus Swanson MD ENTERED: 03/11/19 SP TYPE: STOMACH OTHR DR: Aquiles Rangel MD ORDERED: GROSS COPIES TO: Zeus Swanson MD [address] [place] [address] Aquiles Rangel MD [address] [place] [address] PROCEDURES: GROSS (-1353) TISSUES: 1. DUODENUM, NOS - BX 2. ANTRAL BIOPSY - H-PYLORI CLINICAL HISTORY COLLECTION DATE: 03/11/19 ESOPHAGITIS, GASTRITIS, BLOATING, REFLUX ABDOMINAL PAIN FINAL DIAGNOSIS Second po rtion of duodenum, biopsy: DUODENAL MUCOSA WITH NO PATHOLOGIC ALTERATION Gastric antrum, biopsy: REACTIVE GASTROPATHY FRAGMENTS OF GASTRIC MUCOSA WITH NO PATHOLOGIC ALTERATION NEGATIVE FOR INTESTINAL ME TAPLASIA NEGATIVE FOR MALIGNANCY RRB/ana D [id number] CONTINUED ON NEXT PAGE RUN DATE: [place] - Lab PAGE 2 R UN TIME: 3081 Specimen Inquiry RUN USER: INTERFACE ----- -------SPEC #: [id number] PATIENT: JANAY FLEMING #[id number] (Continued) MACROSCOPIC The first specimen is received in formalin, labeled with the patient's name, and identified as "2nd portion duodenal bx", and consists of giles biopsy tissue measuring 0.3 cm, subm itted as (1). The second specimen is received in formalin, labeled with th e patient's name, and identified as "antrum bx", and consists of giles biopsy ti ssue measuring 0.45 cm, submitted as (2). GROSS PERFORMED AT [facility] [address] [place] [address] (p)[phone] MICROSCOPIC All of the stains, including any controls performed, stain appropriately. MICROSCOPIC PERFOR MED AT [facility] [address] [place] [address] (p)[phone] PERFORMING SITE Diagnosis performed at: [facility] [address] [place] [place] [address] [phone] Signed SIGNATURE ON FILE Iain Emanuel MD 03/12/19 1711 END OF REPORT BASIC METABOLIC [id number] 15:32:00* Test Item Value Reference Range Interpretation Comments SODIUM (test code = NA) 141 mmol/L 136-145 N POTASSIUM (test code = K) 3.5 mmol/L 3.5-5.1 N CHLORIDE (test code = CL) 108.0 mmol/L 98-107 H CARBON DIOXIDE (test code = CO2) 27.0 mmol/L 21-32 N ANION GAP (test code = GAP) 9.5 10-20 L GLUCOSE (test code = GLU) 87 mg/dL 74-106 N BLOOD UREA NITROGEN (test code = BUN) 7 mg/dL 7-18 N GLOMERULAR FILTRATION RATE (test code = GFR) > 60 mL/min >=60 Estimated GFR by using Modified MDRD formula.Chronic kidney disease is defined as either kidney damageor GFR <60 mL/min/1.73 m2 for >3 months. CREATININE (test code = CREAT) 0.60 mg/dL 0.55-1.02 N Note change in reference range due to change in reagent. BUN/CREATININE RATIO (test code = BUN/CREA) 11.7 10-20 N CALCIUM (test code = CA) 9.1 mg/dL 8.5-10.1 N BASIC METABOLIC [id number] 15:28:00* Test Item Value Reference Range Interpretation Comments SODIUM (test code = NA) 141 mmol/L 136-145 N POTASSIUM (test code = K) 3.5 mmol/L 3.5-5.1 N CHLORIDE (test code = CL) 108.0 mmol/L 98-107 H CARBON DIOXIDE (test code = CO2) mmol/L 21-32 ANION GAP (test code = GAP) 10-20 GLUCOSE (test code = GLU) mg/dL 74-106 BLOOD UREA NITROGEN (test code = BUN) mg/dL 7-18 GLOMERULAR FILTRATION RATE (test code = GFR) mL/min >=60 CREATININE (test code = CREAT) mg/dL 0.55-1.02 BUN/CREATININE RATIO (test code = BUN/CREA) 10-20 CALCIUM (test code = CA) mg/dL 8.5-10.1 CT Lumbar Spine Wo [id number] 16:26:48Hm Interface, Radiology Results 11/01/2018 4:29 PM CDTEXAMINATION: CT LUMBAR SPINE WO CONTRASTCLINICAL HISTORY: fall contusionCOMPARISON: NoneTECHNIQUE: Axial noncontrast enhanced images of lumbar spine was performed with coronal sagittal reconstruction algorithms. CT imaging was performed with iterative r econstruction technique and/or automated exposure control to reduce radiation do se.FINDINGS:There are 5 non-rib bearing lumbar type vertebrae. No fracture. No s ubluxation. No suspicious osseous lesions. Evaluation of the visualized soft tis sues demonstrates no mass, adenopathy or aneurysm. Axial images through the dis c spaces demonstrate the following:L1-L2: No significant posterior disc disease, spinal canal, subarticular zone, or neural foraminal stenosis.L2-L3: No signifi cant posterior disc disease, spinal canal, subarticular zone, or neural foramina l stenosis.L3-L4: No significant posterior disc disease, spinal canal, subarticu lar zone, or neural foraminal stenosis.L4-L5: No significant posterior disc dise ase, spinal canal, subarticular zone, or neural foraminal stenosis. Mild facet a rthropathy.L5-S1: No significant posterior disc disease, spinal canal, subarticu lar zone, or neural foraminal stenosis. Mild facet arthropathy.IMPRESSION:1. No fracture or traumatic subluxation. No significant spinal canal or neural foramin al stenosis.[facility]-[id number]'s Medical Center PlanoSI METABOLIC [id number] 08:30:00* Test Item Value Reference Range Interpretation Comments SODIUM (test code = NA) 140 mEq/L 134-147 N POTASSIUM (test code = K) 3.4 mEq/L 3.4-5.0 N CHLORIDE (test code = CL) 110 mEq/L 100-108 H CARBON DIOXIDE (test code = CO2) 24 mEq/L 21-33 N ANION GAP (test code = GAP) 9 0-20 N GLUCOSE (test code = GLU) 120 mg/dL 70-110 H BLOOD UREA NITROGEN (test code = BUN) 12 mg/dL 7-18 N GLOMERULAR FILTRATION RATE (test code = GFR) 89.3 95-105 L Units of measure = ml/min/1.73 m2 CREATININE (test code = CREAT) 0.7 mg/dL 0.6-1.3 N CALCIUM (test code = CA) 8.2 mg/dL 8.0-10.5 N CBC W/AUTO [id number] 07:12:00* Test Item Value Reference Range Interpretation Comments WHITE BLOOD CELL (test code = WBC) 6.32 x10 3/uL 4.5-11.0 N RED BLOOD CELL (test code = RBC) 3.62 x10 6/uL 3.54-5.02 N HEMOGLOBIN (test code = HGB) 11.6 g/dL 11.0-15.0 N HEMATOCRIT (test code = HCT) 33.8 % 33.0-45.0 N MEAN CELL VOLUME (test code = MCV) 93.4 fL 81.0-99.0 N MEAN CELL HGB (test code = MCH) 32.0 pg 27.0-33.0 N MEAN CELL HGB CONCETRATION (test code = MCHC) 34.3 g/dL 33.0-37. 0 N RED CELL DISTRIBUTION WIDTH CV (test code = RDW) 13.0 % 11.5- 14.5 N RED CELL DISTRIBUTION WIDTH SD (test code = RDW-SD) 44.6 fL 37 .0-54.0 N PLATELET COUNT (test code = PLT) 223 x10 3/uL 150-400 N MEAN PLATELET VOLUME (test code = MPV) 9.9 fL 7.0-9.0 H NEUTROPHIL % (test code = NT%) 37.7 % 56.0-77.0 L IMMATURE GRANULOCYTE % (test code = IG%) 0.3 % 0.0-2.0 N LYMPHOCYTE % (test code = LY%) 50.3 % 14.0-32.0 H MONOCYTE % (test code = MO%) 5.5 % 4.8-9.0 N EOSINOPHIL % (test code = EO%) 5.7 % 0.3-3.7 H BASOPHIL % (test code = BA%) 0.5 % 0.0-2.0 N NUCLEATED RBC % (test code = NRBC%) 0.0 % 0-0 N NEUTROPHIL # (test code = NT#) 2.38 x10 3/uL 2.0-7.6 N IMMATURE GRANULOCYTE # (test code = IG#) 0.02 x10 3/uL 0.00-0.03 N LYMPHOCYTE # (test code = LY#) 3.18 x10 3/uL 1.0-3.8 N MONOCYTE # (test code = MO#) 0.35 x10 3/uL 0.1-0.8 N EOSINOPHIL # (test code = EO#) 0.36 x10 3/uL 0.0-0.2 H BASOPHIL # (test code = BA#) 0.03 x10 3/uL 0.0-0.2 N NUCLEATED RBC # (test code = NRBC#) 0.00 x10 3/uL 0.0-0.1 N MANUAL DIFF REQUIRED (test code = MDIFF) NO [id number] 20:27:00* Test Item Value Reference Range Interpretation Comments TROPONIN-I (test code = TROPI) < 0.015 ng/mL 0.000-0.045 N Negative: <= 0.045 Positive: >= 0.046 Correlation with serial results, other cardiac markers andclinical findings is necessary to determine the clinicalsignificance of this result. Results using different methodologies should not be comparedto one another as quantitative results may vary by method. COMMENTS: 3 troponins total (including troponin done in ED)- XR CHEST 1 V 2018-09-10 17:13:00 FAX: Alexis Pierre DO [phone] [place]: St: REG Name: JANAY ASH [facility] : [birth year] Age/S: 48/F [address] [place] [address] Unit #: [id number] Loc: [place] [address] Phys: Alexis Barbosa DO Acct: [id number] Dis Date: Status: REG ER PHONE #: [phone] Exam Date: 09/10/2018 165 FAX #: [phone] Reason: Chest Pain EXAMS: CPT CODE: [id number] XR CHEST 1 V 04003 CHEST, ONE VIEW: H ISTORY: Acute chest pain. COMPARISON EXAM(S): Back to November FINDINGS: This single portable view was obtained at 1646 hours on 09/10/2018 in a shallow degree of inspiration and shows the cardiac silhouette to be normal and the lungs clear. No pleural fluid or evidence of pneumothorax. The skeletal structures are unremarkable. IMPRESSION: 1. Shallow inspiration. 2. No acute changes. 3. Stable appearance of the chest compared to 06/22/2018. SL:01 at 1713 Reported and signed by: Pillo Mason M.D. CC: Alexis Barbosa DO Technologist: RT Emelia(R) Trnscrd Date/Time/By: 09/10/2018 (1976) : By: LizetteAJJ Orig Print D/T: S: 09/10/2018 (4658) PAGE 1 Signed Report BASIC METABOLIC [id number] 17:08:00* Test Item Value Reference Range Interpretation Comments SODIUM (test code = NA) 142 mEq/L 134-147 N POTASSIUM (test code = K) 3.7 mEq/L 3.4-5.0 N CHLORIDE (test code = CL) 109 mEq/L 100-108 H CARBON DIOXIDE (test code = CO2) 25 mEq/L 21-33 N ANION GAP (test code = GAP) 12 0-20 N GLUCOSE (test code = GLU) 95 mg/dL 70-110 N BLOOD UREA NITROGEN (test code = BUN) 12 mg/dL 7-18 N GLOMERULAR FILTRATION RATE (test code = GFR) 76.6 95-105 L Units of measure = ml/min/1.73 m2 CREATININE (test code = CREAT) 0.8 mg/dL 0.6-1.3 N CALCIUM (test code = CA) 8.8 mg/dL 8.0-10.5 N [id number] 17:08:00* Test Item Value Reference Range Interpretation Comments TROPONIN-I (test code = TROPI) < 0.015 ng/mL 0.000-0.045 N Negative: <= 0.045 Positive: >= 0.046 Correlation with serial results, other cardiac markers andclinical findings is necessary to determine the clinicalsignificance of this result. Results using different methodologies should not be comparedto one another as quantitative results may vary by method. CBC W/AUTO [id number] 16:53:00* Test Item Value Reference Range Interpretation Comments WHITE BLOOD CELL (test code = WBC) 8.77 x10 3/uL 4.5-11.0 N RED BLOOD CELL (test code = RBC) 3.95 x10 6/uL 3.54-5.02 N HEMOGLOBIN (test code = HGB) 12.9 g/dL 11.0-15.0 N HEMATOCRIT (test code = HCT) 36.7 % 33.0-45.0 N MEAN CELL VOLUME (test code = MCV) 92.9 fL 81.0-99.0 N MEAN CELL HGB (test code = MCH) 32.7 pg 27.0-33.0 N MEAN CELL HGB CONCETRATION (test code = MCHC) 35.1 g/dL 33.0-37. 0 N RED CELL DISTRIBUTION WIDTH CV (test code = RDW) 13.0 % 11.5- 14.5 N RED CELL DISTRIBUTION WIDTH SD (test code = RDW-SD) 44.5 fL 37 .0-54.0 N PLATELET COUNT (test code = PLT) 238 x10 3/uL 150-400 N MEAN PLATELET VOLUME (test code = MPV) 9.4 fL 7.0-9.0 H NEUTROPHIL % (test code = NT%) 59.2 % 56.0-77.0 N IMMATURE GRANULOCYTE % (test code = IG%) 0.3 % 0.0-2.0 N LYMPHOCYTE % (test code = LY%) 32.4 % 14.0-32.0 H MONOCYTE % (test code = MO%) 4.4 % 4.8-9.0 L EOSINOPHIL % (test code = EO%) 3.4 % 0.3-3.7 N BASOPHIL % (test code = BA%) 0.3 % 0.0-2.0 N NUCLEATED RBC % (test code = NRBC%) 0.0 % 0-0 N NEUTROPHIL # (test code = NT#) 5.18 x10 3/uL 2.0-7.6 N IMMATURE GRANULOCYTE # (test code = IG#) 0.03 x10 3/uL 0.00-0.03 N LYMPHOCYTE # (test code = LY#) 2.84 x10 3/uL 1.0-3.8 N MONOCYTE # (test code = MO#) 0.39 x10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 [facility] Phencyclidine Esuuvp5219-80-88 17:40:00* Test Item Value Reference Range Interpretation Comments Urine Phencyclidine Screen (test code = 69378-7) NEGATIVE NEGAT SHERWIN [facility] Amphetamines Evvtdh8515-40-62 17:40:00* Test Item Value Reference Range Interpretation Comments Urine Amphetamines Screen (test code = 36654-9) NEGATIVE NEGATI VE [facility] Methamphetamines Vcefii7596-87-36 17:40:00* Test Item Value Reference Range Interpretation Comments Urine Methamphetamines Screen (test code = Urine Metha mphetamines Screen) NEGATIVE NEGATIVE [facility] Benzodiazepines Zndllg0050-93-32 17:40:00* Test Item Value Reference Range Interpretation Comments Urine Benzodiazepines Screen (test code = 85256-7) POSITIVE NEG ATIVE H This test provides only a screen. Positive results should be repeated by a confi rmatory test.[facility] Club[facility] Cocaine Screen 2017-07-03 17:40:00* Test Item Value Reference Range Interpretation Comments Urine Cocaine Screen (test code = 3398-5) NEGATIVE NEGATIVE [facility] Cannabinoids Ibgvqu9882-00-81 17:40:00* Test Item Value Reference Range Interpretation Comments Urine Cannabinoids Screen (test code = 33467-1) NEGATIVE NEGATI VE THESE RESULTS ARE FOR MEDICAL TREATMENT ONLYTHIS REPORT CONTAINS UNCONFIR MED SCREENING RESULTS*POSITIVE RESULTS WILL BE CONFIRMED BY REFERENCE LAB UPON R EQUEST CUT-OFFDRUG CLASS CONCENTRATION ng/mLAmphetamines 1000Methamphetamines 1000Cocaine 300Opiate 300Phencyc lidine 25Cannabinoid 50Barbiturates 300Benzodiazepine 300Methadone 300[facility] Methadone Zjygjo8877-48-17 17:40:00* Test Item Value Reference Range Interpretation Comments Urine Methadone Screen (test code = 80393-8) NEGATIVE NEGATIVE THESE RESULTS ARE FOR MEDICAL TREATMENT ONLYTHIS REPORT CONTAINS UNCONFIR MED SCREENING RESULTS*POSITIVE RESULTS WILL BE CONFIRMED BY REFERENCE LAB UPON R EQUEST CUT-OFFDRUG CLASS CONCENTRATION ng/mLAmphetamines 1000Methamphetamines 1000Cocaine Metabolite 300Opiate 300Phencyc lidine 25Cannabinoid 50Barbiturates 300Benzodiazepine 300Methadone 300[facility] Club[facility] Qnjbcxsaqzeb0950-34-37 17:40:00* Test Item Value Reference Range Interpretation Comments Urine Urobilinogen (test code = 28685-1) 0.2 0.2-1 [facility] Udpfmydbd1847-02-35 17:40:00* Test Item Value Reference Range Interpretation Comments Urine Bilirubin (test code = 1978-6) NEGATIVE NEGATIVE [facility] Club[facility] Mmimo9754-02-30 17:40:00* Test Item Value Reference Range Interpretation Comments Urine Blood (test code = 57013-8) NEGATIVE NEGATIVE [facility] Gzxsw3041-72-43 17:40:00* Test Item Value Reference Range Interpretation Comments Urine Color (test code = 5778-6) YELLOW YELLOW [facility] ClubU[facility] Hbnttkx0659-29-44 17:40:00* Test Item Value Reference Range Interpretation Comments Urine Clarity (test code = 65226-5) CLEAR CLEAR [facility] ClubU[facility] Specific Qulnxzy0164-19-74 17:40:00 * Test Item Value Reference Range Interpretation Comments Urine Specific Alpine (test code = 5811-5) 1.030 1.010-1.02 5 H [facility] ClubU[facility] kH7972-94-16 17:40:00* Test Item Value Reference Range Interpretation Comments Urine pH (test code = 89135-4) 5 5-7 [facility] Club[facility] Leukocyte Tlyxwpwc6420-53-72 17:40:00* Test Item Value Reference Range Interpretation Comments Urine Leukocyte Esterase (test code = 5799-2) NEGATIVE NEGATIVE [facility] Club[facility] Jiqgtts3242-04-65 17:40:00* Test Item Value Reference Range Interpretation Comments Urine Nitrite (test code = 40176-9) NEGATIVE NEGATIVE [facility] Club[facility] Fuaobza1770-73-56 17:40:00* Test Item Value Reference Range Interpretation Comments Urine Protein (test code = 5804-0) 1+ NEGATIVE H [facility] ClubU[facility] Glucose (UA)2017-07-03 17:40:00* Test Item Value Reference Range Interpretation Comments Urine Glucose (UA) (test code = 2349-9) NEGATIVE NEGATIVE [facility] Club[facility] Ykdmqmp3142-71-15 17:40:00* Test Item Value Reference Range Interpretation Comments Urine Ketones (test code = 67972-3) NEGATIVE NEGATIVE [facility] Club[facility] Opiates Opmtiw9065-88-08 17:40:00* Test Item Value Reference Range Interpretation Comments Urine Opiates Screen (test code = 98024-4) POSITIVE NEGATIVE H This test provides only a screen. Positive results should be repeated by a confi rmatory test.[facility] Club[facility] Barbiturates Screen 2017-07-03 17:40:00* Test Item Value Reference Range Interpretation Comments Urine Barbiturates Screen (test code = 935994330) NEGATIVE NEGA TIVE [facility] Club[facility] Phencyclidine Jnpsmb8553-08-27 17:40:00* Test Item Value Reference Range Interpretation Comments Urine Phencyclidine Screen (test code = 42113-3) NEGATIVE NEGAT SHERWIN [facility] ClubU[facility] Amphetamines Zkqgvf9613-51-34 17:40:00* Test Item Value Reference Range Interpretation Comments Urine Amphetamines Screen (test code = 03674-2) NEGATIVE NEGATI VE [facility] Club[facility] Methamphetamines Tbxlxs2464-57-60 17:40:00* Test Item Value Reference Range Interpretation Comments Urine Methamphetamines Screen (test code = Urine Metha mphetamines Screen) NEGATIVE NEGATIVE [facility] Club[facility] Benzodiazepines Onchvd8885-97-83 17:40:00* Test Item Value Reference Range Interpretation Comments Urine Benzodiazepines Screen (test code = 99283-0) POSITIVE NEG ATIVE H This test provides only a screen. Positive results should be repeated by a confi rmatory test.[facility] Club[facility] Cocaine Screen 2017-07-03 17:40:00* Test Item Value Reference Range Interpretation Comments Urine Cocaine Screen (test code = 3398-5) NEGATIVE NEGATIVE [facility] Club[facility] Cannabinoids Xzgtfj7343-23-59 17:40:00* Test Item Value Reference Range Interpretation Comments Urine Cannabinoids Screen (test code = 70629-7) NEGATIVE NEGATI VE THESE RESULTS ARE FOR MEDICAL TREATMENT ONLYTHIS REPORT CONTAINS UNCONFIR MED SCREENING RESULTS*POSITIVE RESULTS WILL BE CONFIRMED BY REFERENCE LAB UPON R EQUEST CUT-OFFDRUG CLASS CONCENTRATION ng/mLAmphetamines 1000Methamphetamines 1000Cocaine 300Opiate 300Phencyc lidine 25Cannabinoid 50Barbiturates 300Benzodiazepine 300Methadone 300[facility] Club[facility] Methadone Xgsgog7352-44-29 17:40:00* Test Item Value Reference Range Interpretation Comments Urine Methadone Screen (test code = 03508-6) NEGATIVE NEGATIVE THESE RESULTS ARE FOR MEDICAL TREATMENT ONLYTHIS REPORT CONTAINS UNCONFIR MED SCREENING RESULTS*POSITIVE RESULTS WILL BE CONFIRMED BY REFERENCE LAB UPON R EQUEST CUT-OFFDRUG CLASS CONCENTRATION ng/mLAmphetamines 1000Methamphetamines 1000Cocaine Metabolite 300Opiate 300Phencyc lidine 25Cannabinoid 50Barbiturates 300Benzodiazepine 300Methadone 300[facility] ClubU[facility] Sbrwpjcjamdj5002-26-22 17:40:00* Test Item Value Reference Range Interpretation Comments Urine Urobilinogen (test code = 33904-1) 0.2 0.2-1 [facility] Pnyngfcyk1279-28-81 17:40:00* Test Item Value Reference Range Interpretation Comments Urine Bilirubin (test code = 1978-6) NEGATIVE NEGATIVE [facility] Club[facility] Uasmk9165-72-72 17:40:00* Test Item Value Reference Range Interpretation Comments Urine Blood (test code = 68506-0) NEGATIVE NEGATIVE [facility] Club[facility] Opiates Bqqkog9218-69-37 17:40:00* Test Item Value Reference Range Interpretation Comments Urine Opiates Screen (test code = 00035-5) POSITIVE NEGATIVE H This test provides only a screen. Positive results should be repeated by a confi rmatory test.[facility] Club[facility] Barbiturates Screen 2017-07-03 17:40:00* Test Item Value Reference Range Interpretation Comments Urine Barbiturates Screen (test code = 855214252) NEGATIVE NEGA TIVE [facility] ClubU[facility] Phencyclidine Vgqckn6710-57-38 17:40:00* Test Item Value Reference Range Interpretation Comments Urine Phencyclidine Screen (test code = 82189-1) NEGATIVE NEGAT SHERWIN [facility] ClubU[facility] Amphetamines Didktt5020-29-61 17:40:00* Test Item Value Reference Range Interpretation Comments Urine Amphetamines Screen (test code = 11859-6) NEGATIVE NEGATI VE [facility] Methamphetamines Etjaec1403-23-04 17:40:00* Test Item Value Reference Range Interpretation Comments Urine Methamphetamines Screen (test code = Urine Metha mphetamines Screen) NEGATIVE NEGATIVE [facility] Club[facility] Benzodiazepines Bxfhqf9604-57-56 17:40:00* Test Item Value Reference Range Interpretation Comments Urine Benzodiazepines Screen (test code = 10471-1) POSITIVE NEG ATIVE H This test provides only a screen. Positive results should be repeated by a confi rmatory test.[facility] Club[facility] Cocaine Screen 2017-07-03 17:40:00* Test Item Value Reference Range Interpretation Comments Urine Cocaine Screen (test code = 3398-5) NEGATIVE NEGATIVE [facility] ClubU[facility] Cannabinoids Bzdhng1992-13-72 17:40:00* Test Item Value Reference Range Interpretation Comments Urine Cannabinoids Screen (test code = 12150-2) NEGATIVE NEGATI VE THESE RESULTS ARE FOR MEDICAL TREATMENT ONLYTHIS REPORT CONTAINS UNCONFIR MED SCREENING RESULTS*POSITIVE RESULTS WILL BE CONFIRMED BY REFERENCE LAB UPON R EQUEST CUT-OFFDRUG CLASS CONCENTRATION ng/mLAmphetamines 1000Methamphetamines 1000Cocaine 300Opiate 300Phencyc lidine 25Cannabinoid 50Barbiturates 300Benzodiazepine 300Methadone 300[facility] Methadone Yvcrkf4189-27-92 17:40:00* Test Item Value Reference Range Interpretation Comments Urine Methadone Screen (test code = 48300-4) NEGATIVE NEGATIVE THESE RESULTS ARE FOR MEDICAL TREATMENT ONLYTHIS REPORT CONTAINS UNCONFIR MED SCREENING RESULTS*POSITIVE RESULTS WILL BE CONFIRMED BY REFERENCE LAB UPON R EQUEST CUT-OFFDRUG CLASS CONCENTRATION ng/mLAmphetamines 1000Methamphetamines 1000Cocaine Metabolite 300Opiate 300Phencyc lidine 25Cannabinoid 50Barbiturates 300Benzodiazepine 300Methadone 300[facility]viewodium Kisec9696-19-40 17:34:00* Test Item Value Reference Range Interpretation Comments Sodium Level (test code = 2951-2) 137 136-145 [facility] ClubPotassium Givfp5207-67-04 17:34:00* Test Item Value Reference Range Interpretation Comments Potassium Level (test code = 2823-3) 3.1 3.5-5.1 L [facility] ClubChloride Vygzx9818-25-52 17:34:00* Test Item Value Reference Range Interpretation Comments Chloride Level (test code = 2075-0) 101 98-107 [facility] ClubCarbon Dioxide Iumdh9070-55-12 17:34:00* Test Item Value Reference Range Interpretation Comments Carbon Dioxide Level (test code = 2028-9) 23 22-29 [facility] ClubAnion Cod4323-72-04 17:34:00* Test Item Value Reference Range Interpretation Comments Anion Gap (test code = 91821-2) 16.1 8-16 H [facility] ClubBlood Urea Dqxldqfs6435-39-72 17:34:00* Test Item Value Reference Range Interpretation Comments Blood Urea Nitrogen (test code = 3094-0) 9 7-26 [facility] ClubCreatinine2018-05-15 17:34:00* Test Item Value Reference Range Interpretation Comments Creatinine (test code = 2160-0) 0.81 0.57-1.11 [facility] ClubBUN/Creatinine Blwvx2803-10-23 17:34:00* Test Item Value Reference Range Interpretation Comments BUN/Creatinine Ratio (test code = 3097-3) 11 6-25 [facility] ClubEstimat Glomerular Filtration Rate 2017-07-03 17:34:00* Test Item Value Reference Range Interpretation Comments Estimat Glomerular Filtration Rate (test code = 50801-6) 60- >60 Ranges were taken from the National Kidney Disease Education Program and the [facility] Foundation literature.Reference ranges:60 or greater: Pjvnhe36-00 ( for 3 consecutive months): Chronic kidney disease 15 or less: Kidney failureB[facility] Trophy ClubGlucose Lozcg1626-41-81 17:34:00* Test Item Value Reference Range Interpretation Comments Glucose Level (test code = SFT4358) 87 74-118 [facility] ClubCalcium Mvwww7913-94-82 17:34:00* Test Item Value Reference Range Interpretation Comments Calcium Level (test code = 32232-8) 9.3 8.4-10.2 [facility] ClubTogunnison [facility] hospital Wmuiynxxz9851-59-18 17:34:00* Test Item Value Reference Range Interpretation Comments Total Bilirubin (test code = 1975-2) 0.4 0.2-1.2 [facility] ClubAspartate Amino Transf (AST/SGOT) 2017-07-03 17:34:00* Test Item Value Reference Range Interpretation Comments Aspartate Amino Transf (AST/SGOT) (test code = Aspartate Amino Transf (AST/SGOT)) 42 5-34 H [facility] ClubAlanine Aminotransferase (ALT/SGPT) 2017-07-03 17:34:00* Test Item Value Reference Range Interpretation Comments Alanine Aminotransferase (ALT/SGPT) (test code = 1742-6) 33 0-55 [facility] ClubTotal Ehwwyhi5788-68-13 17:34:00* Test Item Value Reference Range Interpretation Comments Total Protein (test code = 2885-2) 8.6 6.5-8.1 H [facility] ClubAlbumin2018-05-15 17:34:00* Test Item Value Reference Range Interpretation Comments Albumin (test code = 1751-7) 4.0 3.5-5.0 [facility] ClubGlobulin2018-05-15 17:34:00* Test Item Value Reference Range Interpretation Comments Globulin (test code = 54506-1) 4.6 2.3-3.5 H [facility] ClubAlbumin/Globulin Hayix0381-87-71 17:34:00 * Test Item Value Reference Range Interpretation Comments Albumin/Globulin Ratio (test code = 1759-0) 0.9 0.8-2.0 [facility] ClubAlkaline Grfgkmwwyxx7341-86-71 17:34:00* Test Item Value Reference Range Interpretation Comments Alkaline Phosphatase (test code = 6768-6) 94 40-150 [facility]viewodium Fakqk5030-71-46 17:34:00* Test Item Value Reference Range Interpretation Comments Sodium Level (test code = 2951-2) 137 136-145 [facility] ClubPotassium Eewwk1403-35-85 17:34:00* Test Item Value Reference Range Interpretation Comments Potassium Level (test code = 2823-3) 3.1 3.5-5.1 L [facility] ClubChloride Loccd4172-03-88 17:34:00* Test Item Value Reference Range Interpretation Comments Chloride Level (test code = 2075-0) 101 98-107 [facility] Trophy ClubCarbon Dioxide Ajmre2550-67-13 17:34:00* Test Item Value Reference Range Interpretation Comments Carbon Dioxide Level (test code = 2028-9) 23 22-29 [facility] ClubAnion Fxa7314-99-57 17:34:00* Test Item Value Reference Range Interpretation Comments Anion Gap (test code = 37612-1) 16.1 8-16 H [facility] ClubBlood Urea Detadjuy1585-94-57 17:34:00* Test Item Value Reference Range Interpretation Comments Blood Urea Nitrogen (test code = 3094-0) 9 7-26 [facility] ClubCreatinine2018-05-15 17:34:00* Test Item Value Reference Range Interpretation Comments Creatinine (test code = 2160-0) 0.81 0.57-1.11 [facility] ClubBUN/Creatinine Daiod4734-08-23 17:34:00* Test Item Value Reference Range Interpretation Comments BUN/Creatinine Ratio (test code = 3097-3) 11 6-25 [facility] Trophy ClubEstimat Glomerular Filtration Rate 2017-07-03 17:34:00* Test Item Value Reference Range Interpretation Comments Estimat Glomerular Filtration Rate (test code = 25248-3) 60- >60 Ranges were taken from the National Kidney Disease Education Program and the [facility] literature.Reference ranges:60 or greater: Vwzxow52-66 ( for 3 consecutive months): Chronic kidney disease 15 or less: Kidney failureB[facility] ClubGlucose Jfpex9949-65-94 17:34:00* Test Item Value Reference Range Interpretation Comments Glucose Level (test code = BAS6717) 87 74-118 [facility] ClubCalcium Cenez9930-10-97 17:34:00* Test Item Value Reference Range Interpretation Comments Calcium Level (test code = 02934-7) 9.3 8.4-10.2 [facility] Trophy ClubTotal Umoyhuscs1449-40-44 17:34:00* Test Item Value Reference Range Interpretation Comments Total Bilirubin (test code = 1975-2) 0.4 0.2-1.2 [facility] ClubAspartate Amino Transf (AST/SGOT) 2017-07-03 17:34:00* Test Item Value Reference Range Interpretation Comments Aspartate Amino Transf (AST/SGOT) (test code = Aspartate Amino Transf (AST/SGOT)) 42 5-34 H [facility] ClubAlanine Aminotransferase (ALT/SGPT) 2017-07-03 17:34:00* Test Item Value Reference Range Interpretation Comments Alanine Aminotransferase (ALT/SGPT) (test code = 1742-6) 33 0-55 [facility] ClubTotal Broerwu1671-01-57 17:34:00* Test Item Value Reference Range Interpretation Comments Total Protein (test code = 2885-2) 8.6 6.5-8.1 H [facility] ClubAlbumin2018-05-15 17:34:00* Test Item Value Reference Range Interpretation Comments Albumin (test code = 1751-7) 4.0 3.5-5.0 [facility] ClubGlobulin2018-05-15 17:34:00* Test Item Value Reference Range Interpretation Comments Globulin (test code = 86546-8) 4.6 2.3-3.5 H [facility] ClubAlbumin/Globulin Fvosf9878-33-87 17:34:00 * Test Item Value Reference Range Interpretation Comments Albumin/Globulin Ratio (test code = 1759-0) 0.9 0.8-2.0 [facility] ClubAlkaline Jlslegcqvzn3958-06-91 17:34:00* Test Item Value Reference Range Interpretation Comments Alkaline Phosphatase (test code = 6768-6) 94 40-150 [facility]viewodium Kqmst8631-96-67 17:34:00* Test Item Value Reference Range Interpretation Comments Sodium Level (test code = 2951-2) 137 136-145 [facility] ClubPotassium Llhsc5476-27-49 17:34:00* Test Item Value Reference Range Interpretation Comments Potassium Level (test code = 2823-3) 3.1 3.5-5.1 L [facility] ClubChloride Zltui1353-14-28 17:34:00* Test Item Value Reference Range Interpretation Comments Chloride Level (test code = 2075-0) 101 98-107 [facility] ClubCarbon Dioxide Utooz3904-27-40 17:34:00* Test Item Value Reference Range Interpretation Comments Carbon Dioxide Level (test code = 2028-9) 23 22-29 [facility] ClubAnion Utv6824-19-13 17:34:00* Test Item Value Reference Range Interpretation Comments Anion Gap (test code = 24289-9) 16.1 8-16 H [facility] ClubBlood Urea Wihksgpe2736-35-73 17:34:00* Test Item Value Reference Range Interpretation Comments Blood Urea Nitrogen (test code = 3094-0) 9 7-26 [facility] ClubCreatinine2018-05-15 17:34:00* Test Item Value Reference Range Interpretation Comments Creatinine (test code = 2160-0) 0.81 0.57-1.11 [facility] ClubBUN/Creatinine Iolkc3659-43-62 17:34:00* Test Item Value Reference Range Interpretation Comments BUN/Creatinine Ratio (test code = 3097-3) 11 6-25 [facility] Trophy ClubEstimat Glomerular Filtration Rate 2017-07-03 17:34:00* Test Item Value Reference Range Interpretation Comments Estimat Glomerular Filtration Rate (test code = 935316984) 60- >60 Ranges were taken from the National Kidney Disease Education Program and the [facility] literature.Reference ranges:60 or greater: Bemmdn60-18 ( for 3 consecutive months): Chronic kidney disease 15 or less: Kidney failureBaylor Scott & [facility] Trophy ClubGlucose Knkag1289-83-12 17:34:00* Test Item Value Reference Range Interpretation Comments Glucose Level (test code = TUN0607) 87 74-118 [facility] ClubCalcium Jnybx5977-11-70 17:34:00* Test Item Value Reference Range Interpretation Comments Calcium Level (test code = 90574-9) 9.3 8.4-10.2 [facility] ClubTotal Kkgfopuyy8988-55-55 17:34:00* Test Item Value Reference Range Interpretation Comments Total Bilirubin (test code = 1975-2) 0.4 0.2-1.2 [facility] ClubAspartate Amino Transf (AST/SGOT) 2017-07-03 17:34:00* Test Item Value Reference Range Interpretation Comments Aspartate Amino Transf (AST/SGOT) (test code = Aspartate Amino Transf (AST/SGOT)) 42 5-34 H [facility] ClubAlanine Aminotransferase (ALT/SGPT) 2017-07-03 17:34:00* Test Item Value Reference Range Interpretation Comments Alanine Aminotransferase (ALT/SGPT) (test code = 1742-6) 33 0-55 [facility] ClubTotal Upzcpbj2111-56-10 17:34:00* Test Item Value Reference Range Interpretation Comments Total Protein (test code = 2885-2) 8.6 6.5-8.1 H [facility] ClubAlbumin2018-05-15 17:34:00* Test Item Value Reference Range Interpretation Comments Albumin (test code = 1751-7) 4.0 3.5-5.0 [facility] ClubGlobulin2018-05-15 17:34:00* Test Item Value Reference Range Interpretation Comments Globulin (test code = 08461-2) 4.6 2.3-3.5 H [facility] ClubAlbumin/Globulin Mfibz6853-06-36 17:34:00 * Test Item Value Reference Range Interpretation Comments Albumin/Globulin Ratio (test code = 1759-0) 0.9 0.8-2.0 [facility] ClubAlkaline Nvvomockydn4910-74-17 17:34:00* Test Item Value Reference Range Interpretation Comments Alkaline Phosphatase (test code = 6768-6) 94 40-150 [facility] ClubWhite Blood Eghes0595-13-33 17:15:00* Test Item Value Reference Range Interpretation Comments White Blood Count (test code = 6690-2) 9.99 4.8-10.8 [facility] ClubRed Blood Fhcus0810-98-74 17:15:00* Test Item Value Reference Range Interpretation Comments Red Blood Count (test code = 789-8) 3.74 3.6-5.1 [facility] ClubHemoglobin2018-05-15 17:15:00* Test Item Value Reference Range Interpretation Comments Hemoglobin (test code = 68416-6) 12.0 12.0-16.0 [facility] ClubHematocrit2018-05-15 17:15:00* Test Item Value Reference Range Interpretation Comments Hematocrit (test code = 4544-3) 33.9 34.2-44.1 L [facility] ClubMean Corpuscular Kahjjo7118-09-27 17:15:00* Test Item Value Reference Range Interpretation Comments Mean Corpuscular Volume (test code = 787-2) 90.6 81-99 [facility] ClubMean Corpuscular Cqpuiadbvb3843-05-34 17:15:00* Test Item Value Reference Range Interpretation Comments Mean Corpuscular Hemoglobin (test code = 785-6) 32.1 28-32 H [facility] ClubMean Corpuscular Hemoglobin Concent 2017-07-03 17:15:00* Test Item Value Reference Range Interpretation Comments Mean Corpuscular Hemoglobin Concent (test code = 786-4) 35.4 31-35 H [facility] ClubRed Cell Distribution Amwvb0632-66-68 17:15:00* Test Item Value Reference Range Interpretation Comments Red Cell Distribution Width (test code = 58339-2) 14.1 11.7 -14.4 [facility] ClubPlatelet Gsdeh4803-41-10 17:15:00* Test Item Value Reference Range Interpretation Comments Platelet Count (test code = 777-3) 231 140-360 [facility] ClubNeutrophils (%) (Auto)2017-07-03 17:15:00 * Test Item Value Reference Range Interpretation Comments Neutrophils (%) (Auto) (test code = 60640-6) 56.3 38.7-80.0 [facility] ClubLymphocytes (%) (Auto)2017-07-03 17:15:00 * Test Item Value Reference Range Interpretation Comments Lymphocytes (%) (Auto) (test code = 736-9) 35.3 18.0-39.1 [facility] ClubMonocytes (%) (Auto)2017-07-03 17:15:00* Test Item Value Reference Range Interpretation Comments Monocytes (%) (Auto) (test code = 5905-5) 5.5 4.4-11.3 [facility] ClubEosinophils (%) (Auto)2017-07-03 17:15:00 * Test Item Value Reference Range Interpretation Comments Eosinophils (%) (Auto) (test code = 713-8) 2.2 0.0-6.0 [facility] ClubBasophils (%) (Auto)2017-07-03 17:15:00* Test Item Value Reference Range Interpretation Comments Basophils (%) (Auto) (test code = 706-2) 0.4 0.0-1.0 [facility] ClubIM GRANULOCYTES %2017-07-03 17:15:00* Test Item Value Reference Range Interpretation Comments IM GRANULOCYTES % (test code = IM GRANULOCYTES %) 0.3 0.0- 1.0 [facility] ClubNeutrophils # (Auto)2017-07-03 17:15:00* Test Item Value Reference Range Interpretation Comments Neutrophils # (Auto) (test code = 751-8) 5.6 2.1-6.9 [facility] ClubLymphocytes # (Auto)2017-07-03 17:15:00* Test Item Value Reference Range Interpretation Comments Lymphocytes # (Auto) (test code = 53769-4) 3.5 1.0-3.2 H [facility] ClubMonocytes # (Auto)2017-07-03 17:15:00* Test Item Value Reference Range Interpretation Comments Monocytes # (Auto) (test code = 742-7) 0.6 0.2-0.8 [facility] ClubEosinophils # (Auto)2017-07-03 17:15:00* Test Item Value Reference Range Interpretation Comments Eosinophils # (Auto) (test code = 711-2) 0.2 0.0-0.4 [facility] ClubBasophils # (Auto)2017-07-03 17:15:00* Test Item Value Reference Range Interpretation Comments Basophils # (Auto) (test code = 704-7) 0.0 0.0-0.1 [facility] ClubAbsolute Immature Granulocyte (auto 2017-07-03 17:15:00* Test Item Value Reference Range Interpretation Comments Absolute Immature Granulocyte (auto (janet t code = Absolute Immature Granulocyte (auto) 0.03 0-0.1 [facility] ClubWhite Blood Cwujo4135-27-67 17:15:00* Test Item Value Reference Range Interpretation Comments White Blood Count (test code = 6690-2) 9.99 4.8-10.8 [facility] ClubRed Blood Urvxn3726-71-58 17:15:00* Test Item Value Reference Range Interpretation Comments Red Blood Count (test code = 789-8) 3.74 3.6-5.1 [facility] ClubHemoglobin2018-05-15 17:15:00* Test Item Value Reference Range Interpretation Comments Hemoglobin (test code = 89206-2) 12.0 12.0-16.0 [facility] ClubHematocrit2018-05-15 17:15:00* Test Item Value Reference Range Interpretation Comments Hematocrit (test code = 4544-3) 33.9 34.2-44.1 L [facility] ClubMean Corpuscular Omxcxj4200-24-35 17:15:00* Test Item Value Reference Range Interpretation Comments Mean Corpuscular Volume (test code = 787-2) 90.6 81-99 [facility] ClubMean Corpuscular Jargltwhzc4014-50-14 17:15:00* Test Item Value Reference Range Interpretation Comments Mean Corpuscular Hemoglobin (test code = 785-6) 32.1 28-32 H [facility] ClubMean Corpuscular Hemoglobin Concent 2017-07-03 17:15:00* Test Item Value Reference Range Interpretation Comments Mean Corpuscular Hemoglobin Concent (test code = 786-4) 35.4 31-35 H [facility] ClubRed Cell Distribution Wcxbq6387-52-39 17:15:00* Test Item Value Reference Range Interpretation Comments Red Cell Distribution Width (test code = 26071-5) 14.1 11.7 -14.4 [facility] Trophy ClubPlatelet Pidsu2419-18-51 17:15:00* Test Item Value Reference Range Interpretation Comments Platelet Count (test code = 777-3) 231 140-360 [facility] ClubNeutrophils (%) (Auto)2017-07-03 17:15:00 * Test Item Value Reference Range Interpretation Comments Neutrophils (%) (Auto) (test code = 91367-9) 56.3 38.7-80.0 [facility] ClubLymphocytes (%) (Auto)2017-07-03 17:15:00 * Test Item Value Reference Range Interpretation Comments Lymphocytes (%) (Auto) (test code = 736-9) 35.3 18.0-39.1 [facility] ClubMonocytes (%) (Auto)2017-07-03 17:15:00* Test Item Value Reference Range Interpretation Comments Monocytes (%) (Auto) (test code = 5905-5) 5.5 4.4-11.3 [facility] ClubEosinophils (%) (Auto)2017-07-03 17:15:00 * Test Item Value Reference Range Interpretation Comments Eosinophils (%) (Auto) (test code = 713-8) 2.2 0.0-6.0 [facility] ClubBasophils (%) (Auto)2017-07-03 17:15:00* Test Item Value Reference Range Interpretation Comments Basophils (%) (Auto) (test code = 706-2) 0.4 0.0-1.0 [facility] ClubIM GRANULOCYTES %2017-07-03 17:15:00* Test Item Value Reference Range Interpretation Comments IM GRANULOCYTES % (test code = IM GRANULOCYTES %) 0.3 0.0- 1.0 [facility] ClubNeutrophils # (Auto)2017-07-03 17:15:00* Test Item Value Reference Range Interpretation Comments Neutrophils # (Auto) (test code = 751-8) 5.6 2.1-6.9 [facility] ClubLymphocytes # (Auto)2017-07-03 17:15:00* Test Item Value Reference Range Interpretation Comments Lymphocytes # (Auto) (test code = 35668-6) 3.5 1.0-3.2 H [facility] ClubMonocytes # (Auto)2017-07-03 17:15:00* Test Item Value Reference Range Interpretation Comments Monocytes # (Auto) (test code = 742-7) 0.6 0.2-0.8 [facility] ClubEosinophils # (Auto)2017-07-03 17:15:00* Test Item Value Reference Range Interpretation Comments Eosinophils # (Auto) (test code = 711-2) 0.2 0.0-0.4 [facility] ClubBasophils # (Auto)2017-07-03 17:15:00* Test Item Value Reference Range Interpretation Comments Basophils # (Auto) (test code = 704-7) 0.0 0.0-0.1 [facility] ClubAbsolute Immature Granulocyte (auto 2017-07-03 17:15:00* Test Item Value Reference Range Interpretation Comments Absolute Immature Granulocyte (auto (janet t code = Absolute Immature Granulocyte (auto) 0.03 0-0.1 [facility] ClubWhite Blood Nxlkf4658-35-15 17:15:00* Test Item Value Reference Range Interpretation Comments White Blood Count (test code = 6690-2) 9.99 4.8-10.8 [facility] ClubRed Blood Mxudn5344-13-46 17:15:00* Test Item Value Reference Range Interpretation Comments Red Blood Count (test code = 789-8) 3.74 3.6-5.1 [facility] ClubHemoglobin2018-05-15 17:15:00* Test Item Value Reference Range Interpretation Comments Hemoglobin (test code = 22705-4) 12.0 12.0-16.0 [facility] ClubHematocrit2018-05-15 17:15:00* Test Item Value Reference Range Interpretation Comments Hematocrit (test code = 4544-3) 33.9 34.2-44.1 L [facility] ClubMean Corpuscular Txfvrz3535-02-69 17:15:00* Test Item Value Reference Range Interpretation Comments Mean Corpuscular Volume (test code = 787-2) 90.6 81-99 [facility] ClubMean Corpuscular Egoqvbjofq7591-93-85 17:15:00* Test Item Value Reference Range Interpretation Comments Mean Corpuscular Hemoglobin (test code = 785-6) 32.1 28-32 H [facility] ClubMean Corpuscular Hemoglobin Concent 2017-07-03 17:15:00* Test Item Value Reference Range Interpretation Comments Mean Corpuscular Hemoglobin Concent (test code = 786-4) 35.4 31-35 H [facility] ClubRed Cell Distribution Ctlad5433-58-72 17:15:00* Test Item Value Reference Range Interpretation Comments Red Cell Distribution Width (test code = 15849-9) 14.1 11.7 -14.4 [facility] Trophy ClubPlatelet Apuwj6897-55-05 17:15:00* Test Item Value Reference Range Interpretation Comments Platelet Count (test code = 777-3) 231 140-360 [facility] ClubNeutrophils (%) (Auto)2017-07-03 17:15:00 * Test Item Value Reference Range Interpretation Comments Neutrophils (%) (Auto) (test code = 52108-9) 56.3 38.7-80.0 [facility] ClubLymphocytes (%) (Auto)2017-07-03 17:15:00 * Test Item Value Reference Range Interpretation Comments Lymphocytes (%) (Auto) (test code = 736-9) 35.3 18.0-39.1 [facility] ClubMonocytes (%) (Auto)2017-07-03 17:15:00* Test Item Value Reference Range Interpretation Comments Monocytes (%) (Auto) (test code = 5905-5) 5.5 4.4-11.3 [facility] ClubEosinophils (%) (Auto)2017-07-03 17:15:00 * Test Item Value Reference Range Interpretation Comments Eosinophils (%) (Auto) (test code = 713-8) 2.2 0.0-6.0 [facility] ClubBasophils (%) (Auto)2017-07-03 17:15:00* Test Item Value Reference Range Interpretation Comments Basophils (%) (Auto) (test code = 706-2) 0.4 0.0-1.0 [facility] ClubIM GRANULOCYTES %2017-07-03 17:15:00* Test Item Value Reference Range Interpretation Comments IM GRANULOCYTES % (test code = IM GRANULOCYTES %) 0.3 0.0- 1.0 [facility] ClubNeutrophils # (Auto)2017-07-03 17:15:00* Test Item Value Reference Range Interpretation Comments Neutrophils # (Auto) (test code = 751-8) 5.6 2.1-6.9 [facility] ClubLymphocytes # (Auto)2017-07-03 17:15:00* Test Item Value Reference Range Interpretation Comments Lymphocytes # (Auto) (test code = 23472-8) 3.5 1.0-3.2 H [facility] ClubMonocytes # (Auto)2017-07-03 17:15:00* Test Item Value Reference Range Interpretation Comments Monocytes # (Auto) (test code = 742-7) 0.6 0.2-0.8 [facility] ClubEosinophils # (Auto)2017-07-03 17:15:00* Test Item Value Reference Range Interpretation Comments Eosinophils # (Auto) (test code = 711-2) 0.2 0.0-0.4 [facility] ClubBasophils # (Auto)2017-07-03 17:15:00* Test Item Value Reference Range Interpretation Comments Basophils # (Auto) (test code = 704-7) 0.0 0.0-0.1 [facility] ClubAbsolute Immature Granulocyte (auto 2017-07-03 17:15:00* Test Item Value Reference Range Interpretation Comments Absolute Immature Granulocyte (auto (janet t code = Absolute Immature Granulocyte (auto) 0.03 0-0.1 [facility] ClubUrine CPI2423-94-21 06:27:00* Test Item Value Reference Range Interpretation Comments Urine WBC (test code = 5821-4) 6-10 0-5 H [facility] ClubUrine CDG4788-35-33 06:27:00* Test Item Value Reference Range Interpretation Comments Urine RBC (test code = 97225-9) 0-5 0-5 [facility] ClubUrine Nhvclvda1761-96-35 06:27:00* Test Item Value Reference Range Interpretation Comments Urine Bacteria (test code = 17829-9) RARE NONE [facility] ClubUrine Epithelial Rcmon8237-13-44 06:27:00 * Test Item Value Reference Range Interpretation Comments Urine Epithelial Cells (test code = 29894-4) FEW NONE [facility] Trophy ClubUrine JVS3439-36-41 06:27:00* Test Item Value Reference Range Interpretation Comments Urine WBC (test code = 5821-4) 6-10 0-5 H [facility] ClubUrine FDP0567-45-09 06:27:00* Test Item Value Reference Range Interpretation Comments Urine RBC (test code = 94269-6) 0-5 0-5 [facility] ClubUrine Qwxvaicl7353-24-21 06:27:00* Test Item Value Reference Range Interpretation Comments Urine Bacteria (test code = 21549-6) RARE NONE [facility] ClubUrine Epithelial Iellf2340-84-23 06:27:00 * Test Item Value Reference Range Interpretation Comments Urine Epithelial Cells (test code = 51100-3) FEW NONE [facility]viewodium Enkdi9075-95-05 06:17:00* Test Item Value Reference Range Interpretation Comments Sodium Level (test code = 2951-2) 137 136-145 [facility] ClubPotassium Emwyw6882-95-40 06:17:00* Test Item Value Reference Range Interpretation Comments Potassium Level (test code = 2823-3) 3.8 3.5-5.1 [facility] ClubChloride Fbzae6038-70-78 06:17:00* Test Item Value Reference Range Interpretation Comments Chloride Level (test code = 2075-0) 101 98-107 [facility] Trophy ClubCarbon Dioxide Dutqy2186-01-34 06:17:00* Test Item Value Reference Range Interpretation Comments Carbon Dioxide Level (test code = 2028-9) 26 22-29 [facility] Trophy ClubAnion Nww1792-31-71 06:17:00* Test Item Value Reference Range Interpretation Comments Anion Gap (test code = 62211-2) 13.8 8-16 [facility] ClubBlood Urea Mmlnyfmt9337-42-67 06:17:00* Test Item Value Reference Range Interpretation Comments Blood Urea Nitrogen (test code = 3094-0) 6 7-26 L [facility] ClubCreatinine2018-03-18 06:17:00* Test Item Value Reference Range Interpretation Comments Creatinine (test code = 2160-0) 0.69 0.57-1.11 [facility] ClubBUN/Creatinine Xbkoh6850-59-23 06:17:00* Test Item Value Reference Range Interpretation Comments BUN/Creatinine Ratio (test code = 3097-3) 9 6-25 [facility] Trophy ClubEstimat Glomerular Filtration Rate 2017-05-06 06:17:00* Test Item Value Reference Range Interpretation Comments Estimat Glomerular Filtration Rate (test code = 81288-3) 60- >60 Ranges were taken from the National Kidney Disease Education Program and the [facility] literature.Reference ranges:60 or greater: Mgvzjk58-47 ( for 3 consecutive months): Chronic kidney disease 15 or less: Kidney failureB[facility] & [facility] Trophy ClubGlucose Uwmqc0171-92-96 06:17:00* Test Item Value Reference Range Interpretation Comments Glucose Level (test code = PPL6178) 91 74-118 [facility] ClubCalcium Aolkw4691-43-38 06:17:00* Test Item Value Reference Range Interpretation Comments Calcium Level (test code = 94644-3) 9.5 8.4-10.2 [facility] ClubTotal Yllnlqpjh3757-91-03 06:17:00* Test Item Value Reference Range Interpretation Comments Total Bilirubin (test code = 1975-2) -0.3 0.2-1.2 [facility] Trophy ClubAspartate Amino Transf (AST/SGOT) 2017-05-06 06:17:00* Test Item Value Reference Range Interpretation Comments Aspartate Amino Transf (AST/SGOT) (test code = Aspartate Amino Transf (AST/SGOT)) 23 5-34 [facility] ClubAlanine Aminotransferase (ALT/SGPT) 2017-05-06 06:17:00* Test Item Value Reference Range Interpretation Comments Alanine Aminotransferase (ALT/SGPT) (test code = 1742-6) 24 0-55 [facility] ClubTotal Crhyjdf6727-09-48 06:17:00* Test Item Value Reference Range Interpretation Comments Total Protein (test code = 2885-2) 7.4 6.5-8.1 [facility] ClubAlbumin2018-03-18 06:17:00* Test Item Value Reference Range Interpretation Comments Albumin (test code = 1751-7) 3.6 3.5-5.0 [facility] ClubGlobulin2018-03-18 06:17:00* Test Item Value Reference Range Interpretation Comments Globulin (test code = 87168-6) 3.8 2.3-3.5 H [facility] ClubAlbumin/Globulin Bsqoi1045-31-48 06:17:00 * Test Item Value Reference Range Interpretation Comments Albumin/Globulin Ratio (test code = 1759-0) 0.9 0.8-2.0 [facility] ClubAlkaline Ehvwuazdfzh6250-75-85 06:17:00* Test Item Value Reference Range Interpretation Comments Alkaline Phosphatase (test code = 6768-6) 78 40-150 [facility] ClubAmylase Pkrat3060-43-09 06:17:00* Test Item Value Reference Range Interpretation Comments Amylase Level (test code = 1798-8) 45 25-125 [facility] ClubLipase2018-03-18 06:17:00* Test Item Value Reference Range Interpretation Comments Lipase (test code = 3040-3) 32 8-78 [facility]viewodium Aejcb5887-52-25 06:17:00* Test Item Value Reference Range Interpretation Comments Sodium Level (test code = 2951-2) 137 136-145 [facility] ClubPotassium Fxizp3514-63-53 06:17:00* Test Item Value Reference Range Interpretation Comments Potassium Level (test code = 2823-3) 3.8 3.5-5.1 [facility] ClubChloride Kxslx3957-65-51 06:17:00* Test Item Value Reference Range Interpretation Comments Chloride Level (test code = 2075-0) 101 98-107 [facility] ClubCarbon Dioxide Rptte6737-44-05 06:17:00* Test Item Value Reference Range Interpretation Comments Carbon Dioxide Level (test code = 2028-9) 26 22-29 [facility] ClubAnion Gpz3838-44-71 06:17:00* Test Item Value Reference Range Interpretation Comments Anion Gap (test code = 95995-3) 13.8 8-16 [facility] Trophy ClubBlood Urea Ixkncxcv5830-55-96 06:17:00* Test Item Value Reference Range Interpretation Comments Blood Urea Nitrogen (test code = 3094-0) 6 7-26 L [facility] ClubCreatinine2018-03-18 06:17:00* Test Item Value Reference Range Interpretation Comments Creatinine (test code = 2160-0) 0.69 0.57-1.11 [facility] ClubBUN/Creatinine Ukcvo6170-73-07 06:17:00* Test Item Value Reference Range Interpretation Comments BUN/Creatinine Ratio (test code = 3097-3) 9 6-25 [facility] ClubEstimat Glomerular Filtration Rate 2017-05-06 06:17:00* Test Item Value Reference Range Interpretation Comments Estimat Glomerular Filtration Rate (test code = 89671-8) 60- >60 Ranges were taken from the National Kidney Disease Education Program and the [facility] literature.Reference ranges:60 or greater: Znegku50-81 ( for 3 consecutive months): Chronic kidney disease 15 or less: Kidney failureBaylor Scott & [facility] – Trophy ClubGlucose Zjbka5284-55-78 06:17:00* Test Item Value Reference Range Interpretation Comments Glucose Level (test code = TIN1698) 91 74-118 [facility] ClubCalcium Jbvem1662-47-40 06:17:00* Test Item Value Reference Range Interpretation Comments Calcium Level (test code = 48500-8) 9.5 8.4-10.2 [facility] ClubTotal Gnyyqwatj1993-20-54 06:17:00* Test Item Value Reference Range Interpretation Comments Total Bilirubin (test code = 1975-2) -0.3 0.2-1.2 [facility] ClubAspartate Amino Transf (AST/SGOT) 2017-05-06 06:17:00* Test Item Value Reference Range Interpretation Comments Aspartate Amino Transf (AST/SGOT) (test code = Aspartate Amino Transf (AST/SGOT)) 23 5-34 [facility] ClubAlanine Aminotransferase (ALT/SGPT) 2017-05-06 06:17:00* Test Item Value Reference Range Interpretation Comments Alanine Aminotransferase (ALT/SGPT) (test code = 1742-6) 24 0-55 [facility] ClubTotal Elhepxk7006-04-37 06:17:00* Test Item Value Reference Range Interpretation Comments Total Protein (test code = 2885-2) 7.4 6.5-8.1 [facility] ClubAlbumin2018-03-18 06:17:00* Test Item Value Reference Range Interpretation Comments Albumin (test code = 1751-7) 3.6 3.5-5.0 [facility] ClubGlobulin2018-03-18 06:17:00* Test Item Value Reference Range Interpretation Comments Globulin (test code = 34739-6) 3.8 2.3-3.5 H [facility] ClubAlbumin/Globulin Cmazr8633-39-27 06:17:00 * Test Item Value Reference Range Interpretation Comments Albumin/Globulin Ratio (test code = 1759-0) 0.9 0.8-2.0 [facility] ClubAlkaline Sqiprjnqsrx3948-63-05 06:17:00* Test Item Value Reference Range Interpretation Comments Alkaline Phosphatase (test code = 6768-6) 78 40-150 [facility] ClubAmylase Dzquk5713-47-47 06:17:00* Test Item Value Reference Range Interpretation Comments Amylase Level (test code = 1798-8) 45 25-125 [facility] ClubLipase2018-03-18 06:17:00* Test Item Value Reference Range Interpretation Comments Lipase (test code = 3040-3) 32 8-78 [facility] ClubAmylase Ppcgk2979-45-71 06:17:00* Test Item Value Reference Range Interpretation Comments Amylase Level (test code = 1798-8) 45 25-125 [facility] ClubLipase2018-03-18 06:17:00* Test Item Value Reference Range Interpretation Comments Lipase (test code = 3040-3) 32 8-78 [facility] ClubAmylase Mlctb2161-72-96 06:17:00* Test Item Value Reference Range Interpretation Comments Amylase Level (test code = 1798-8) 45 25-125 [facility] ClubLipase2018-03-18 06:17:00* Test Item Value Reference Range Interpretation Comments Lipase (test code = 3040-3) 32 8-78 [facility] ClubAmylase Jykrh2762-78-85 06:17:00* Test Item Value Reference Range Interpretation Comments Amylase Level (test code = 1798-8) 45 25-125 [facility] ClubLipase2018-03-18 06:17:00* Test Item Value Reference Range Interpretation Comments Lipase (test code = 3040-3) 32 8-78 [facility] ClubWhite Blood Hvfwy7225-85-74 06:03:00* Test Item Value Reference Range Interpretation Comments White Blood Count (test code = 6690-2) 7.13 4.8-10.8 [facility] ClubRed Blood Nxpxr3258-59-03 06:03:00* Test Item Value Reference Range Interpretation Comments Red Blood Count (test code = 789-8) 3.48 3.6-5.1 L [facility] ClubHemoglobin2018-03-18 06:03:00* Test Item Value Reference Range Interpretation Comments Hemoglobin (test code = 85720-2) 11.4 12.0-16.0 L [facility] ClubHematocrit2018-03-18 06:03:00* Test Item Value Reference Range Interpretation Comments Hematocrit (test code = 4544-3) 32.7 34.2-44.1 L [facility] ClubMean Corpuscular Xvcsel3258-67-16 06:03:00* Test Item Value Reference Range Interpretation Comments Mean Corpuscular Volume (test code = 787-2) 94.0 81-99 [facility] ClubMean Corpuscular Xedrjjlzkc2951-34-57 06:03:00* Test Item Value Reference Range Interpretation Comments Mean Corpuscular Hemoglobin (test code = 785-6) 32.8 28-32 H [facility] ClubMean Corpuscular Hemoglobin Concent 2017-05-06 06:03:00* Test Item Value Reference Range Interpretation Comments Mean Corpuscular Hemoglobin Concent (test code = 786-4) 34.9 31-35 [facility] ClubRed Cell Distribution Gbqeo7601-45-65 06:03:00* Test Item Value Reference Range Interpretation Comments Red Cell Distribution Width (test code = 83766-7) 14.6 11.7 -14.4 H [facility] ClubPlatelet Umivt3432-83-93 06:03:00* Test Item Value Reference Range Interpretation Comments Platelet Count (test code = 777-3) 243 140-360 [facility] ClubNeutrophils (%) (Auto)2017-05-06 06:03:00 * Test Item Value Reference Range Interpretation Comments Neutrophils (%) (Auto) (test code = 01050-8) 41.8 38.7-80.0 [facility] ClubLymphocytes (%) (Auto)2017-05-06 06:03:00 * Test Item Value Reference Range Interpretation Comments Lymphocytes (%) (Auto) (test code = 736-9) 43.9 18.0-39.1 H [facility] ClubMonocytes (%) (Auto)2017-05-06 06:03:00* Test Item Value Reference Range Interpretation Comments Monocytes (%) (Auto) (test code = 5905-5) 6.6 4.4-11.3 [facility] ClubEosinophils (%) (Auto)2017-05-06 06:03:00 * Test Item Value Reference Range Interpretation Comments Eosinophils (%) (Auto) (test code = 713-8) 6.6 0.0-6.0 H [facility] ClubBasophils (%) (Auto)2017-05-06 06:03:00* Test Item Value Reference Range Interpretation Comments Basophils (%) (Auto) (test code = 706-2) 0.7 0.0-1.0 [facility] Trophy ClubIM GRANULOCYTES %2017-05-06 06:03:00* Test Item Value Reference Range Interpretation Comments IM GRANULOCYTES % (test code = IM GRANULOCYTES %) 0.4 0.0- 1.0 [facility] ClubNeutrophils # (Auto)2017-05-06 06:03:00* Test Item Value Reference Range Interpretation Comments Neutrophils # (Auto) (test code = 751-8) 3.0 2.1-6.9 [facility] ClubLymphocytes # (Auto)2017-05-06 06:03:00* Test Item Value Reference Range Interpretation Comments Lymphocytes # (Auto) (test code = 98878-0) 3.1 1.0-3.2 [facility] ClubMonocytes # (Auto)2017-05-06 06:03:00* Test Item Value Reference Range Interpretation Comments Monocytes # (Auto) (test code = 742-7) 0.5 0.2-0.8 [facility] ClubEosinophils # (Auto)2017-05-06 06:03:00* Test Item Value Reference Range Interpretation Comments Eosinophils # (Auto) (test code = 711-2) 0.5 0.0-0.4 H [facility] ClubBasophils # (Auto)2017-05-06 06:03:00* Test Item Value Reference Range Interpretation Comments Basophils # (Auto) (test code = 704-7) 0.1 0.0-0.1 [facility] Trophy ClubAbsolute Immature Granulocyte (auto 2017-05-06 06:03:00* Test Item Value Reference Range Interpretation Comments Absolute Immature Granulocyte (auto (janet t code = Absolute Immature Granulocyte (auto) 0.03 0-0.1 [facility] ClubWhite Blood Ixxfu1701-75-79 06:03:00* Test Item Value Reference Range Interpretation Comments White Blood Count (test code = 6690-2) 7.13 4.8-10.8 [facility] ClubRed Blood Alrlt9349-56-84 06:03:00* Test Item Value Reference Range Interpretation Comments Red Blood Count (test code = 789-8) 3.48 3.6-5.1 L [facility] ClubHemoglobin2018-03-18 06:03:00* Test Item Value Reference Range Interpretation Comments Hemoglobin (test code = 84826-1) 11.4 12.0-16.0 L [facility] ClubHematocrit2018-03-18 06:03:00* Test Item Value Reference Range Interpretation Comments Hematocrit (test code = 4544-3) 32.7 34.2-44.1 L [facility] ClubMean Corpuscular Zasyps1742-25-69 06:03:00* Test Item Value Reference Range Interpretation Comments Mean Corpuscular Volume (test code = 787-2) 94.0 81-99 [facility] ClubMean Corpuscular Klbexcvppn0655-21-19 06:03:00* Test Item Value Reference Range Interpretation Comments Mean Corpuscular Hemoglobin (test code = 785-6) 32.8 28-32 H [facility] ClubMean Corpuscular Hemoglobin Concent 2017-05-06 06:03:00* Test Item Value Reference Range Interpretation Comments Mean Corpuscular Hemoglobin Concent (test code = 786-4) 34.9 31-35 [facility] ClubRed Cell Distribution Vufpi5472-76-98 06:03:00* Test Item Value Reference Range Interpretation Comments Red Cell Distribution Width (test code = 87666-5) 14.6 11.7 -14.4 H [facility] Trophy ClubPlatelet Chemz3267-39-67 06:03:00* Test Item Value Reference Range Interpretation Comments Platelet Count (test code = 777-3) 243 140-360 [facility] ClubNeutrophils (%) (Auto)2017-05-06 06:03:00 * Test Item Value Reference Range Interpretation Comments Neutrophils (%) (Auto) (test code = 57251-9) 41.8 38.7-80.0 [facility] ClubLymphocytes (%) (Auto)2017-05-06 06:03:00 * Test Item Value Reference Range Interpretation Comments Lymphocytes (%) (Auto) (test code = 736-9) 43.9 18.0-39.1 H [facility] ClubMonocytes (%) (Auto)2017-05-06 06:03:00* Test Item Value Reference Range Interpretation Comments Monocytes (%) (Auto) (test code = 5905-5) 6.6 4.4-11.3 [facility] ClubEosinophils (%) (Auto)2017-05-06 06:03:00 * Test Item Value Reference Range Interpretation Comments Eosinophils (%) (Auto) (test code = 713-8) 6.6 0.0-6.0 H [facility] ClubBasophils (%) (Auto)2017-05-06 06:03:00* Test Item Value Reference Range Interpretation Comments Basophils (%) (Auto) (test code = 706-2) 0.7 0.0-1.0 [facility] ClubIM GRANULOCYTES %2017-05-06 06:03:00* Test Item Value Reference Range Interpretation Comments IM GRANULOCYTES % (test code = IM GRANULOCYTES %) 0.4 0.0- 1.0 [facility] ClubNeutrophils # (Auto)2017-05-06 06:03:00* Test Item Value Reference Range Interpretation Comments Neutrophils # (Auto) (test code = 751-8) 3.0 2.1-6.9 [facility] ClubLymphocytes # (Auto)2017-05-06 06:03:00* Test Item Value Reference Range Interpretation Comments Lymphocytes # (Auto) (test code = 06023-9) 3.1 1.0-3.2 [facility] ClubMonocytes # (Auto)2017-05-06 06:03:00* Test Item Value Reference Range Interpretation Comments Monocytes # (Auto) (test code = 742-7) 0.5 0.2-0.8 [facility] ClubEosinophils # (Auto)2017-05-06 06:03:00* Test Item Value Reference Range Interpretation Comments Eosinophils # (Auto) (test code = 711-2) 0.5 0.0-0.4 H [facility] ClubBasophils # (Auto)2017-05-06 06:03:00* Test Item Value Reference Range Interpretation Comments Basophils # (Auto) (test code = 704-7) 0.1 0.0-0.1 [facility] ClubAbsolute Immature Granulocyte (auto 2017-05-06 06:03:00* Test Item Value Reference Range Interpretation Comments Absolute Immature Granulocyte (auto (janet t code = Absolute Immature Granulocyte (auto) 0.03 0-0.1 [facility] Trophy ClubUrine Hrkov8438-97-69 06:02:00* Test Item Value Reference Range Interpretation Comments Urine Color (test code = 5778-6) YELLOW YELLOW [facility] Trophy ClubUrine Ujtgmyd8208-88-31 06:02:00* Test Item Value Reference Range Interpretation Comments Urine Clarity (test code = 54818-9) CLEAR CLEAR [facility] Specific Tfjktwl7118-83-32 06:02:00 * Test Item Value Reference Range Interpretation Comments Urine Specific Alpine (test code = 5811-5) 1.015 1.010-1.02 5 [facility] Trophy ClubUrine mL8523-88-76 06:02:00* Test Item Value Reference Range Interpretation Comments Urine pH (test code = 11465-7) 7 5-7 [facility] Leukocyte Myswhlyn1876-76-20 06:02:00* Test Item Value Reference Range Interpretation Comments Urine Leukocyte Esterase (test code = 5799-2) NEGATIVE NEGATIVE [facility] Efmughd3380-24-17 06:02:00* Test Item Value Reference Range Interpretation Comments Urine Nitrite (test code = 53792-4) NEGATIVE NEGATIVE [facility] Rugwsic9685-76-65 06:02:00* Test Item Value Reference Range Interpretation Comments Urine Protein (test code = 5804-0) NEGATIVE NEGATIVE [facility] Glucose (UA)2017-05-06 06:02:00* Test Item Value Reference Range Interpretation Comments Urine Glucose (UA) (test code = 2349-9) NEGATIVE NEGATIVE [facility] Ysmaymx7761-14-58 06:02:00* Test Item Value Reference Range Interpretation Comments Urine Ketones (test code = 19508-7) NEGATIVE NEGATIVE [facility] Mimixdotygtv8399-99-92 06:02:00* Test Item Value Reference Range Interpretation Comments Urine Urobilinogen (test code = 61252-0) 0.2 0.2-1 [facility] Fnaskcrfn2332-77-08 06:02:00* Test Item Value Reference Range Interpretation Comments Urine Bilirubin (test code = 1978-6) NEGATIVE NEGATIVE [facility] ClubUrine Tuapx9001-45-94 06:02:00* Test Item Value Reference Range Interpretation Comments Urine Blood (test code = 65853-6) NEGATIVE NEGATIVE [facility] ClubUrine Jphev6473-27-77 06:02:00* Test Item Value Reference Range Interpretation Comments Urine Color (test code = 5778-6) YELLOW YELLOW [facility] ClubUrine Qlccrpj7020-72-97 06:02:00* Test Item Value Reference Range Interpretation Comments Urine Clarity (test code = 29520-9) CLEAR CLEAR [facility] Specific Uwgjitn0967-67-86 06:02:00 * Test Item Value Reference Range Interpretation Comments Urine Specific Alpine (test code = 5811-5) 1.015 1.010-1.02 5 [facility] pK5622-72-15 06:02:00* Test Item Value Reference Range Interpretation Comments Urine pH (test code = 29068-3) 7 5-7 [facility] Leukocyte Xemlrzxg8122-03-45 06:02:00* Test Item Value Reference Range Interpretation Comments Urine Leukocyte Esterase (test code = 5799-2) NEGATIVE NEGATIVE [facility] Lhbyrzc8438-46-78 06:02:00* Test Item Value Reference Range Interpretation Comments Urine Nitrite (test code = 19482-5) NEGATIVE NEGATIVE [facility] Mlhcgct5331-89-24 06:02:00* Test Item Value Reference Range Interpretation Comments Urine Protein (test code = 5804-0) NEGATIVE NEGATIVE [facility] Glucose (UA)2017-05-06 06:02:00* Test Item Value Reference Range Interpretation Comments Urine Glucose (UA) (test code = 2349-9) NEGATIVE NEGATIVE [facility] Erftdva8092-81-01 06:02:00* Test Item Value Reference Range Interpretation Comments Urine Ketones (test code = 18452-4) NEGATIVE NEGATIVE [facility] Erddyjrtfjeo7019-53-28 06:02:00* Test Item Value Reference Range Interpretation Comments Urine Urobilinogen (test code = 73718-4) 0.2 0.2-1 [facility] Aaqiwttgr1722-12-97 06:02:00* Test Item Value Reference Range Interpretation Comments Urine Bilirubin (test code = 1978-6) NEGATIVE NEGATIVE [facility] Chrts8597-60-69 06:02:00* Test Item Value Reference Range Interpretation Comments Urine Blood (test code = 66500-0) NEGATIVE NEGATIVE [facility] HEAD/BRAIN W/O [id number] 22:33:00 Name: JANAY FLEMING [facility] : 1970 Age/S: 44 / F [address] [place] [address] Blvd Unit #: [id number] Loc: [place] [address] Phys: Richie Estrada DO Acct: [id number] Dis Date: Status: UNK PHONE #: [phone] Exam Date: 01/08/20152211 FAX #: [phone] Reason: ams EXAMS: CPT CODE: [id number] CT HEAD/BRAIN W/O CONT 10079 HISTORY: Altered mental status, unresponsive. No prior studies currently available for comparison. The ventricular system is midline and nondilated. No acute intracranial hemorrhage, infarct or mass is observed and no extra-axial fluid collections are identified. The visualized orbits and paranasal sinuses are maintained. IMPRESSION: No acute intracranial abnormality identified. SL 3 at 2233 Reported and signed by: Jef Savage M.D. CC: Richie Estrada DO Technologist:RT Viki(CT) CTDI: 60.1 DLP: 1.33 Trnscb Date/Time: 01/08/2015 (2233) tKIARA Orig Print D/T: S: 01/08/2015 (3890) PAGE 1 Signed Report - XR WRIST 3 + V [id number] 09:19:00 Name: JANAY FLEMING [facility] : 1970 Age/S:44 /F [address] [facility] Unit#:[id number] Loc: [place] [address] Phys: Oscar Leonard MD Dis Date: PHONE #: [phone] Status: [facility] FAX #: [phone] Exam Date: 12/02/2014 Reason: FALL, INJURY EXAMS: CPT CODE: [id number] XR WRIST 3 + V RT 76701 REASON FOR EXAM: FALL, INJURY EXAM ORDER DATE: 12/02/2014 9:57 PM Ordering MArvind: Oscar Leonard MD PROCEDURE: - XR WRIST 3 + V RT FINDINGS: 3 views of the right wrist were obtained. The osseous structures are unremarkable in size and shape. The joint spaces are maintained. No evidence of fracture. IMPRESSION: Unremarkable right wrist. at 0919 Reported and signed by: Laci Walters M.D. CC: Oscar Leonard MD; Jeff Helm MD Technologist: CHRISTOPHER ROBERTS RT(R),CT Trnscrpt Data: 12/03/2014 (09) t.SDR.VTL Orig Print D/T: S: 12/03/2014 (0987) PAGE 1 Signed Report - XR ABDOMEN AP 1 [id number] 09:35:00 FAX: Yan Dover MD [phone] [place]: St: [place] Name: JANAY ASH [facility] : [birth year] Age/S: 44/F [address] [place] [address] Unit #: [id number] Loc: [place] [address] Phys: Yan Gleason MD Acct: [id number] Dis Date: Status: UNK PHONE #: [phone] Exam Date: 08/21/2014 09 FAX #: [phone] Reason: F/U SBO EXAMS: CPT CODE: [id number] XR ABDOMEN AP 1 V 12173 PROCEDURE: - XR ABDOMEN AP 1 V INDICATION: 44 years Female, F/U SBO. COMPARISON: Abd ominal x-ray 08/20/14 FINDINGS: Residual enteric contrast within n ondilated colon . Decrease gaseous large bowel distention. Decrease feca l debris. No small bowel dilatation. IMPRESSION: Nonspe cific bowel gas distention with decreased fecal debris and large bowel g aseous distention. SL: 03 at 0935 Reported and signed by: Tejinder Shields M.D. CC: Yan Gleason MD Technologist: RT Neva(R) Trnscrd Date/Time/By: 08/21/2014 (2454) : By: [email or web address] Orig Print D/T: S: 08/21/2014 (9005) PAGE 1 Signed Report - US ABDOMEN COMPLETE 2014-08-20 09:50:00 Name: JANAY FLEMING [facility] : 1970 Age/S: 44 / F [address] [place] [address] Unit #: [id number] Loc: [place] [address] Phys: Yan Gleason MD Acct: [id number] Dis Date: Status: UNK PHONE #: [phone] Exam Date: 08/20/2014 0944 FAX #: [phone] Reason: F/U SBO, ABD PAIN EXAMS: CPT CODE: [id number] US ABDOMEN COMPLETE 05712 ABDOMINAL ULTRASOUND 08/20/2014 CLINICAL HISTORY: Abdominal pain. Follow-up small bowel obstruction. COMPARISON: Abdomen CT from 08/19/2014 TECHNIQUE: Sonographic evaluation of the abdomen was performed with supplemental color and pulsed Doppler. FINDINGS: LIVER: The liver is normal in size, contour and morphology with normal parenchymal echogenicity. GALLBLADDER: Partially contracted gallbladder without cholelithiasis, gallbladder wall thickening or pericholecystic fluid. Negative sonographic Bazan. BILE DUCTS: No biliary dilatation The common bile duct measures 4 mm. PANCREAS: Obscured distal pancreatic body and tail by bowel gas. The pancreatic head, neck and proximal body are grossly unremarkable. SPLEEN: The spleen measures 10.3 cm in length without focal lesions. KIDNEYS: The right kidney measures 12.1 cm in length. Normal contour and parenchymal echogenicity. There is no hydronephrosis, nephrolithiasis, mass lesion or perinephric collection The left kidney measures 12.4 cm in length. Normal contour and parenchymal echogenicity. There is no hydronephrosis, nephrolithiasis, ma ss lesion or perinephric collection. AORTA AND INFERIOR VENA CAVA: Visualized portions appear normal. Additional comments: No free fluid. IMPRESSION: 1. Partially contracted gallblad demetrio without signs of cholelithiasis or cholecystitis. No biliary dilata tion. 2. Partially obscured pancreas by bowel gas. SL: 01 PAGE 1 Signed Report (CONTINU ED) Name: JANAY FLEMING [facility] : 1970 Age/S: 44 / F [address] [place] [address] Unit #: [id number] Loc: [place] [address] Phys: Rodolfo Gleason MD Acct: [id number] Dis Date: Status: UNK PHONE #: [phone] Exam Date: 08/20/2014 09 FAX #: Reason: F/U SBO, ABD PAIN EXAMS: CPT CODE: [id number] US ABDOMEN COMPLETE 90671 <Continued> at 0950 Reported and signed by: Nicolas Brewer M.D. CC: Yan Gleason MD Technologist: Lisa Abreu RDMS(Cande)(BR) Trnscb Date/Time: 08/20/2014 (0950) [email or web address] Orig Print D/T: S: 08/20/2014 (0954) Probe: PAGE 2 Signed Report - XR ABDOMEN AP 1 [id number] 09:12:00 FAX: Yan Dover MD [phone] [place]: St: CHERYLK Name: JANAY ASH [facility] : [birth year] Age/S: 44/F [address] [place] [address] Unit #: [id number] Loc: [place] [address] Phys: Yan Gleason MD Acct: [id number] Dis Date: Status: UNK PHONE #: [phone] Exam Date: 08/20/2014904 FAX #: [phone] Reason: F/U SBO EXAMS: CPT CODE: [id number] XR ABDOMEN AP 1 V 11115 XR ABDOMEN 1V HISTORY: Small bowel obstruction. COMPARISON: Abdominal CT 08/19/2014. FINDINGS: Supine portable abdominal radiograph obtained 0835 hours on 08/20/2014. Nonspecific bowel gas pattern. Moderate volume colonic fecal debris over the right side of the abdomen. No significant abdominal calcification. No organomegaly. Bones are intact. IMPRESSION: 1. Nonspecific gas pattern. 2. Moderate volume colonic fecal debris may correspond to a history of constipation. SL: 41 at 0912 Reported and signed by: Janes Rivas M.D. CC: Yan Gleason MD Technologist: RT Neva(R) Trnscrd Date/Time/By: 08/20/2014 (911) : By: [email or web address] Orig Print D/T: S: 08/20/2014 (15) PAGE 1 Signed Report - CT ABD PELVIS [id number] 20:38:00 Name: JANAY FLEMING [facility] : 1970 Age/S: 44 / F [address] [place] [address] Unit #: [id number] Loc: [place] [address] Phys: Raven Bocanegra Acct: [id number] Dis Date: Status: Trilibis PHONE #: [phone] Exam Date: 08/19/20142007 FAX #: [phone] Reason: DIFFUSE ABDOMINAL PAIN, n/v EXAMS: CPT CODE: [id number] CT ABD PELVIS W/CONT 33951 PROCEDURE: CT ABDOMEN AND PELVIS WITH CONTRAST. INDICATION: Diffuse abdominal pain, nausea and vomiting. COMPARISON: None. TECHNIQUE: Helical imaging was performed diaphragm through the symphysis with multiplanar reconstructions. IV CONTRAST: 100 mL Isovue- 300. GI CONTRAST: 10 mL Gastrografin diluted in water. FINDINGS: LOWER CHEST: The lung bases are clear. SOLID ORGANS: The liver, gallbladder, spleen, pancreas, adrenal glands and kidneys are normal. BOWEL: Dilated small bowel loops noted in the mid to left abdomen measuring up to 3.6 cm in diameter with multiple air- fluid levels compatible with small bowel obstruction. Transition point is not identified. Mild colonic diverticulosis noted without diverticulitis. PERITONEUM: No free intraperitoneal fluid or air. RETROPERITONEUM: No adenopathy. The aorta is normal. PELVIS: No pelvic mass. The urinary bladder is normal. MUSCULOSKELETAL: The skeleton is intact. IMPRESSION: Small bowel obstruction. SL: 200 at 2037 Reported and signed by: Chris Sandoval M.D. PAGE 1 Signed Report (CONTINUED) Name: JANAY FLEMING [facility] : 1970 Age/S: 44 / F [address] [place] [address] Unit #: [id number] Loc: [place] [address] Phys: Raven Bocanegra Acct: [id number] Dis Date: Status: UNK PHONE #: [phone] Exam Date: 08/19/20142007 FAX #: [phone] Reason: DIFFUSE ABDOMINAL PAIN, n/v EXAMS: CPT CODE: [id number] CT ABD PELVIS W/CONT 86574 <Continued> CC: Raven PRINCE Technologist:Earnest Morales, RT(CT) CTDI: 29.2 DLP: 1.50 Trnscb Date/Time: 08/19/2014 (2037) [email or web address] Orig Print D/T: S: 08/19/2014 (2040) PAGE 2 Signed Report HUMERUS RIGHT 2+VIEWS [place] [address] Patient Name: JANAY FLMEING MR #: [id number] : 1970 Age/Sex: 47/F Req #: [id number] Adm Physician: Ordered by: JOSE ALEJANDRO TANG MD Report #: [id number] Location: ER Room/Bed: Procedure: [id number] DX/HUMERUS RIGHT 2+VIEWS Exa m Date: 07/03/17 Exam Time: 1934 REPORT STATUS: Signed HUMERUS RIGHT 2+VIEWS - 3 views HISTORY: IV contrast extravasati on. COMPARISON: None available. FINDINGS: Bones: No acute dis placed fracture. Osseous alignment is within normal limits. Joints: T he joint spaces are well-maintained. Soft tissues: Large volume of extrav asated contrast within the mid to distal arm. IMPRESSION: Large vo lume of extravasated intravenous contrast within the mid to distal arm. Sig kay by: Dr. Davy Rahman M.D. on 07/03/2017 8:23 PM Dictated By: MINA RAHAMN MD, MD 22 Transcribed By: SERAFIN on 07/03/172022 COPY TO: JOSE ALEJANDRO TANG MD CT ABDOMEN/PELVIS [place] [address] Patient Name: JANAY FLEMING MR #: [id number] : 1970 Age/Sex: 47/F Req #: [id number] Adm Physician: Ordered by: OCTAVIA CARSON MD Report #: [id number] Location: ER Room/Bed: Procedure: [id number] CT/CT ABDOMEN/PELVIS LINDSEY rosales Date: 07/03/17 Exam Time: 1927 REPORT STATU S: Signed EXAM: CT Abdomen and Pelvis WITHOUT contrast INDICATION: Abdomi nal pain, fever and chills. COMPARISON: None. TECHNIQUE: Abdomen and pelvis were scanned utilizing a multidetector helical scanner from the lung base to t he pubic symphysis without administration of IV contrast. Absence of intraveno us contrast decreases sensitivity for detection of focal lesions and vascular pathology. Coronal and sagittal reformations were obtained. Routine protocol w as performed. IV CONTRAST: None. ORAL CONTRAST: Gas trografin and water mixed. RADIATION DOSE: Total DLP: 817.77 mGy*c m Estimated effective dose: (DLP x 0.015 x size factor) mSv COMPLICATIONS: Extravasation of approximately 100 cc of intravenous c ontrast into the soft tissues of the right forearm. Patient evaluated by Dr. Messi dejesus, on-site radiologist at the time of the examination who spoke with the patient. Patient transferred to the ER with instructions. Interpreting radiolo gist not able to evaluate patient. FINDINGS: LINES and TUBES: None. LOWER THORAX: Bibasilar dependent atelectasis. HEPATOBILIARY: Diffuse l ow attenuation of the hepatic parenchyma consistent with steatosis. No focal hepatic lesions. No biliary ductal dilation. GALLBLADDER: No radio-opaque stones or sludge. No wall thickening. SPLEEN: No splenomegaly. PANCR EAS: No focal masses or ductal dilatation. ADRENALS: No adrenal nodules KIDNEYS/URETERS: No hydronephrosis. No cystic or solid mass lesions. No stones. GI TRACT: No abnormal distention, wall thickening, or evidence of bowel obstruction. Appendix is normal. PELVIC ORGANS/BLADDER: Parra catheter within the urinary bladder which also contains air bubbles in its nondependent portion. Status post hysterectomy. LYMPH NODES: No lymphadeno sylvie. VESSELS: Minimal atherosclerotic calcifications of the abdominal aor ta without aneurysmal dilatation. PERITONEUM / RETROPERITONEUM: No free a ir or fluid. BONES: No acute abnormality. SOFT TISSUES: Bilateral smal l fat-containing inguinal hernias. Tiny fat-containing superior ventral hernia with mild surrounding fat stranding. Tiny anterior defects with overlying str anding of the subcutaneous fat in the midline supraumbilical region. IMPR ESSION: 1. No acute abdominal pelvic abnormality. 2. Hepatic steatosis. 3. Intravenous contrast extravasation. Patient transferred back to the emerg ency department for evaluation. Signed by: Krystina Arguello 07/03/2017 8:35 PM Dictated By: MINA RAHMAN MD, MD Electronically Sig kay By: MINA RAHMAN MD, MD on 07/03/172034 Transcribed By: SERAFIN on 2034 COPY TO: OCTAVIA CARSON MD CT BRAIN WO [place] [address] Patient Name: JANAY FLEMING MR #: [id number] : 1970 Age/Sex: 47/F Req #: [id number] Adm Physician: Ordered by: OCTAVIA CARSON MD Report #: [id number] Location: ER Room/Bed: Procedure: [id number] CT/CT BRAIN WO Exam Date: 07/03/17 Exam Time: 1900 REPORT STATUS: Signed EXAMINATION: Head CT HISTORY: Fever and chills, found unresponsive C OMPARISON: Head CT (04/25/2017 TECHNIQUE: Multidetector axial images were obtain ed without contrast from the foramen magnum to the vertex . The images were re constructed using brain and bone algorithms. Thin section brain images were r eformatted into coronal and sagittal planes. Intravenous contrast: None. Motion/streaking artifact limits the evaluation of the skull base and posterior cranial fossa as well as the mid third of the head. FINDINGS: P arenchyma: 1. No abnormal densities. 2. No mass or hemorrhage. No CT evid ence of acute territorial vascular insult. Extra-axial spaces:N o abnormal density. No extra-axial fluid collections Brain volume: Violetta l for age. Ventricles: No hydrocephalus or displacement. Arteri es: No density suggestive of thrombus. Dural sinuses: No abnormal densit y. Extra-axial spaces: No abnormal density. Foramen magnum: No m ass, Chiari malformation, or basilar invagination. Sella: No obvious mas s. Paranasal/mastoid sinuses: Imaged portions unremarkable. Sku ll/Scalp: No lytic or blastic lesions. No fractures. IMPRESSION: Mil dly suboptimal study due to motion, grossly no acute intracranial abnormalitie s, particularly no mass, hemorrhage, hydrocephalus or acute territorial cortic al infarct. Signed by: Dr. Efraín Dietrich M.D. on 07/03/2017 7:42 PM Di ctated By: EFRAÍN DIETRICH MD 41 Transcribed By: SERAFIN on 07/03/171941 COPY TO: OCTAVIA CARSON MD ABDOMEN ACUTE SERIES W/PA CXR [place] [address] Patient Name: JANAY FLEMING MR #: [id number] : 1970 Age/Sex: 47/F Req #: [id number] Adm Physician: Ordered by: KAMINI BARRIOS MD Report #: [id number] Location: ER Room/Bed: Procedure: [id number] DX/ABDOMEN ACUTE SERIES W/PA CXR Exam Date: Exam Time: REPORT STATU S: Signed ABDOMEN ACUTE SERIES W/PA CXR Clinical history: Abdominal pain Technique: Supine and upright views of the abdomen, PA view of the chest Co mparison: 2016 Findings: Abdomen: Nonobstructive bowel gas pattern w ith copious stool burden around the colon. No free air. Cholecystectomy. Chest: Low lung volumes accentuate the cardiac silhouette result in mild bibas ilar vascular crowding. No effusion or pneumothorax. Impression: Copious stool burden. Signed by: Dr Boni Currie MD on 05/06/2017 6:31 AM Dictated By: BONI CURRIE MD 0 Transcribed By: SERAFIN on 05/06/17630 COPY TO: KAMINI TORRES MD HIP RIGHT 2-3 VW (+/- PELVIS) [place] [address] Patient Name: JANAY FLEMING MR #: [id number] : 1970 Age/Sex: 47/F Req #: [id number] Adm Physician: Ordered by: KAMINI BARRIOS MD Report #: [id number] Location: ER Room/Bed: Procedure: [id number] DX/HIP RIGHT 2-3 VW (+/ - PELVIS) Exam Date: Exam Time: REPORT STATU S: Signed HIP RIGHT 2-3 VW (+/- PELVIS) HISTORY: Status post fall. COMPARISON: None FINDINGS: Bones: No displaced fracture. Osse ous alignment is within normal limits. Joints: The joint spaces are well- maintained. Soft tissues: The soft tissues appear unremarkable. I MPRESSION: No acute radiographic abnormality. Signed by: Dr. Osiel Valdez M.D. on 04/25/2017 10:07 PM Dictated By: OSIEL MURPHY MD Electro nically Signed By: OSIEL MURPHY MD on 04/25/172206 Transcribed By: MARLI PEREZ on 04/25/172206 COPY TO: KAMINI BARRIOS MD CT BRAIN WO [place] [address] Patient Name: JANAY FLEMING MR #: [id number] : 1970 Age/Sex: 47/F Req #: [id number] Adm Physician: Ordered by: RAGHAV FLEMING SHAREBROKER Report #: [id number] Location: ER Room/Bed: Procedure: [id number] CT/CT BRAIN WO Exam Date: Exam Time: REPORT STATUS: Signed EXAMINATI ON: Head CT without contrast. HISTORY:Fall. COMPARISON:CT brain f rom 10/05/2013. TECHNIQUE: Multidetector axial images were obtained from the fo ramen magnum to the vertex without contrast. The images were reconstructed usi ng brain and bone algorithms. Thin section brain images were reformatted into coronal and sagittal planes. Intravenous contrast: None IMAGE QUAL ITY: Acceptable. FINDINGS: Skull/scalp: No abnormality. Parench yma: No abnormal density. No acute hemorrhage, mass or acute major vascular te rritorial infarct. Arteries: No density suggestive of thrombosis. Dural sinuses: No abnormal density suggestive of thrombosis. Ventricles: No hydrocephalus or displacement. Extra-axial spaces: No abnormal density. Brain volume: Normal for age. Craniocervical junction: No mass, Chiari malformation, or basilar invagination. Sella: No mass. Par anasal/mastoid sinuses: Imaged portions unremarkable. IMPRESSION: No intr acranial abnormality. Signed by: Dr. Fabricio Ellison M.D. on 04/25/2017 9:23 PM Dictated By: FABRICIO ELLISON MD 22 Transcribed By: SERAFIN on 04/25/172122 COPY T O: RAGHAV FLEMING SHAREBROKER CT CERVICAL SPINE WO [place] [address] Patient Name: JANAY FLEMING MR #: [id number] : 1970 Age/Sex: 47/F Req #: [id number] Adm Physician: Ordered by: RAGHAV FLEMING NP Report #: [id number] Location: ER Room/Bed: Procedure: [id number] CT/CT CERVICAL SPINE WO Ex am Date: Exam Time: REPORT STATUS: Signed History: Fall. Comparison studies: CT cervical spine from 10/05/2013. T echnique: Axial images were obtained through the cervical region.. Coronal and sagittal images reconstructed from the axial data.. Intravenous contrast: None Findings: Fractures: None. Soft tissue injuries: None. David antoaxial articulation: Intact. Alignment: Loss of normal cervical lordosis is either positional or due to muscle spasm. No scoliosis. Cervicomedullary ju nction: No abnormalities. The foramen magnum is patent. Soft tissues: No abnor malities. Vertebrae: No fractures, infection or neoplasm. Degenera tive changes: None. IMPRESSION: 1. No acute cervical spine fractur e or dislocation. Loss of normal cervical lordosis is either positional or due to muscle spasm. 2. Ligament, spinal cord and or vascular abnormalities c annot be excluded on the basis of this examination. Signed by: Dr. Fabricio Ellison M.D. on 04/25/2017 9:29 PM Dictated By: FABRICIO ELLISON MD 28 Transcribed By: SERAFIN on 04/25/172128 COPY TO: RAGHAV FLEMING NP
== END 2019-09-25 13:02 | disposition home or self-care (01) ==
LOC: FSED 10:37
DX: R10.12 Left upper quadrant pain (principal); R10.32 Left lower quadrant pain; R11.2 Nausea with vomiting, unspecified; I10 Essential (primary) hypertension; K21.9 Gastro-esophageal reflux disease without esophagitis; F41.9 Anxiety disorder, unspecified; K58.9 Irritable bowel syndrome, unspecified
CPT/HCPCS: 74176; 80053; 80076; 81003; 85025; 96372; 96374; 96376; 99284; J0500; J2270; J2550

== ENCOUNTER 2019-11-11 02:19 | Emergency (ER) | payer OTHER ==
[~2019-11-11] VITALS: Ht 162.6 cm; Wt 92.1 kg
[2019-11-11] MEDS ORDERED: AUGMENTIN 875-1 EACH PO (02:56)
[2019-11-11] MEDS ORDERED: TYLENOL # 31 EA PO (02:56)
--- NOTE | 2019-11-11 02:57 | Emergency Department Note ---
History of Present Illnes History of Present Illness Chief Complaint: pain wisdom tooth for 3-4 days History of Present Illness This is a 49 year old female . Historian: Patient Arrival Mode: Car Additional Treatment SOLE ROUNDER: none Landfill Grader Required: No Onset (how long ago): day(s) Location: right lower wisdom tooth Quality: pain sharp throbbing Radiation: Reports other (right ear) Severity: severe Onset quality: gradual Duration (how long): day(s) (4) Timing of current episode: constant Chronicity: recurrent Relieving factors: none Exacerbating factors: none Treatments prior to arrival: none Risk factors: attempted extraction a few months ago as per patient Past Medical/Family History Physician Review I have reviewed the patient's past medical and family history. Any updates have been documented here. Past Medical History Recent Fever: No Clinical Suspicion of Infectio: No New/Unexplained Change in Ment: No Past Medical History: Hypertension, Anxiety, Depression, GERD Other Medical History: IBS bipolar disorder Past Surgical History: Cholecysctectomy, Hysterectomy, Hernia Repair Other Surgery: LEFT HAND SX HEMMORRHOID SX PARTIAL HYSTERECTOMY Social History Smoking Cessation: Never Smoker Counseling Performed: No Alcohol Use: Occasional Any Illegal Drug Use: No TB Exposure/Symptoms: No Physically hurt or threatened: No Other Last Tetanus: UTD Any Pre-Existing Lines (PICC,: No Is patient up to date on immun: No Review of Systems Review of Systems Constitutional: Reports no symptoms EENTM: Reports as per HPI Cardiovascular: Reports no symptoms Respiratory: Reports no symptoms Gastrointestinal: Reports no symptoms Genitourinary: Reports no symptoms Musculoskeletal: Reports no symptoms Integumentary: Reports no symptoms Neurological: Reports no symptoms Psychological: Reports no symptoms Endocrine: Reports no symptoms Hematological/Lymphatic: Reports no symptoms Physical Exam Related Data Allergies: Coded Allergies: ondansetron (Verified Allergy, Severe, tongue and throat swelling, 09/25/19) ketorolac (Verified Allergy, Intermediate, RASH, 05/15/15) prednisone (Verified Allergy, Unknown, "MAKES ME CRAZY", 05/15/15) sulfamethoxazole (Verified Allergy, Unknown, 02/20/16) trimethoprim (Verified Allergy, Unknown, 02/20/16) NSAIDS (Non-Steroidal Anti-Inflamma (Verified Adverse Reaction, Intermediate, STOMACH PAIN, 05/15/15) Uncoded Allergies: NSAIDS (Allergy, Unknown, GI BLEED, 02/07/17) Triage Vital Signs Vital Signs Date Time Temp Pulse Resp B/P (MAP) Pulse Ox O2 Delivery O2 Flow Rate FiO2 11/11/19 02:25 98.7 88 20 164/87 97 Room Air Vital signs reviewed: Yes Physical Exam CONSTITUTIONAL HENT HENT: Present normocephalic, Present atraumatic, Present oropharynx clear/moist, Present oropharynx normal, Present other (adentulous, only tooth right lower wisdm tooth which only partially exposed) HENT L/R: Present left TM normal, Present right TM normal, Present left canal normal, Present right canal normal, Present left ext ear normal, Present right ext ear normal EYES Eyes: Reports PERRL, Reports conjunctivae normal NECK Neck: Present ROM normal, Present supple PULMONARY Pulmonary: Present effort normal, Present breath sounds normal CARDIOVASCULAR Cardiovascular: Present regular rhythm, Present heart sounds normal, Present intact distal pulses GASTROINTESTINAL Abdominal: Present soft, Present nontender, Present bowel sounds normal GENITOURINARY SKIN Skin: Present warm, Present dry MUSCULOSKELETAL Musculoskeletal: Present ROM normal NEUROLOGICAL Neurological: Present alert, Present oriented x 3, Present DTRs normal, Present no gross motor or sensory deficits PSYCHOLOGICAL Psychological: Present mood/affect normal, Present behavior normal, Present thought content normal, Present judgement normal Assessment & Plan Medical Decision Making MDM appears to be an impacted vs infected wisdom tooth. Pt told me that the oral surgeon will see her today . She called earlier they told her to go to the ER if she couldn't wait. Assessment & Plan Final Impression: (1) Tooth, impacted Depart Disposition: HOME, SELF-CARE Last Vital Signs Date Time Temp Pulse Resp B/P (MAP) Pulse Ox O2 Delivery O2 Flow Rate FiO2 11/11/19 02:25 98.7 88 20 164/87 97 Room Air Home Meds Active Scripts Amoxicillin/Potassium Clav (AUGMENTIN 875-125 TABLET) 1 Each Tablet, 875 MG PO BID for infection for 10 Days, #30 TAB Prov:EMIR BRANCH MD 11/11/19 Acetaminophen/Codeine* (TYLENOL # 3*) 1 Ea Tab, 1 TAB PO QID PRN for pain for 5 Days, #20 0 Refills Prov:EMIR BRANCH MD 11/11/19 Sucralfate (CARAFATE) 1 Gm/10 Ml Oral.susp, 1 GM PO Q6H, #30 ML Prov:MICKY JONES MD 10/23/17 Reported Medications Pantoprazole Sodium* (PROTONIX) 40 Mg Tablet.dr, 20 MG PO BID, TAB 06/26/17 Hyoscyamine Sulfate (LEVSIN) 0.125 Mg Tablet, 2 TAB SL Q4HR 04/25/17 Promethazine Hcl (PROMETHAZINE HCL) 25 Mg Tablet, 25 MG PO PRN PRN for NAUSEA, TAB 04/25/17 Esomeprazole Magnesium (NEXIUM) 40 Mg Capsule.dr, 40 MG PO BID PROTONIX THERAPEUTIC SUBSTITUTE FOR NEXIUM PER [facility] 04/12/16 Paroxetine Hcl (PAXIL CR) 25 Mg Tab.er.24h, 50 MG PO DAILY 05/15/15 Dicyclomine Hcl (BENTYL) 20 Mg Tablet, 20 MG PO TID 09/21/14 Trazodone Hcl (TRAZODONE HCL) 50 Mg Tablet, 200 MG PO BEDTIME, #30 TAB 03/19/14 Amlodipine Besylate (NORVASC) 10 Mg Tab, 10 MG PO HS 01/02/14 Chlordiazepoxide/Clidinium Br (LIBRAX CAPSULE) 1 Each Capsule, 1 CAP PO TID 01/02/14 Lorazepam (ATIVAN) 2 Mg Tablet, 1 TAB PO BID PRN for ANXIETY 01/02/14 EMIR BRANCH MD Nov 11, 2019 02:57
== END 2019-11-11 03:10 | disposition home or self-care (01) ==
LOC: FSED 02:45
DX: K01.1 Impacted teeth (principal); I10 Essential (primary) hypertension; K21.9 Gastro-esophageal reflux disease without esophagitis; F41.9 Anxiety disorder, unspecified
CPT/HCPCS: 99282

== ENCOUNTER 2019-12-07 08:47 | Emergency (ER) | payer OTHER ==
[~2019-12-07] VITALS: Ht 162.6 cm; Wt 95.3 kg
[~2019-12-07 08:47] MED LIST changes: +AUGMENTIN 875-1 EACH PO; +TYLENOL # 31 EA PO
[2019-12-07] MEDS ORDERED: SODIUM CHLORIDE 0.9% 1000ML 1,000 ML IV STA (09:09)
[2019-12-07] MEDS ORDERED: PROMETHAZINE 25MG/ NS 50ML (IV) IV ONE (09:15)
[2019-12-07] MEDS ORDERED: FAMOTIDINE 20 MG/2 ML VIAL IV ONE ×2 (09:15→09:28)
[2019-12-07] MEDS ORDERED: DEXAMETHASONE SOD PHOS 10 MG/1 ML VIAL IV ONE (09:15)
[2019-12-07] MEDS ORDERED: SEROQUEL50 MG PO (09:18)
[2019-12-07] MEDS ORDERED: SODIUM CHLORIDE 0.9% 50ML 50 ML ONE (09:28)
[2019-12-07] MEDS ORDERED: PROMETHAZINE HCL (IM) 25 MG/ML VIAL IM ONE (09:28)
[2019-12-07] MEDS ORDERED: SODIUM CHLORIDE 0.9% 1000ML 1,000 ML ONE (09:28)
[2019-12-07 10:06] LABS: BASOPHILS # (AUTO) 0.1 (0.0-0.1); BASOPHILS % 0.6 % (0.0-1.0); EOSINOPHILS # (AUTO) 0.9 (0.0-0.4); EOSINOPHILS % 9.8 % (0.0-6.0); HEMATOCRIT 35.9 % (34.2-44.1); HEMOGLOBIN 12.6 g/dL (12.0-16.0); LYMPHOCYTES # (AUTO) 4.6 (1.0-3.2); LYMPHOCYTES % 51.2 % (18.0-39.1); MEAN CORPUSCULAR HEMOGLOBIN 32.6 pg (28-32); MEAN CORPUSCULAR HGB CONC 35.1 g/dL (31-35); MONOCYTES # (AUTO) 0.4 (0.2-0.8); MONOCYTES % 4.5 % (4.4-11.3); NEUTROPHILS % 33.7 % (38.7-80.0); PLATELET COUNT 254 x10e3/uL (140-360); RED BLOOD COUNT 3.86 x10e6/uL (3.6-5.1); RED CELL DISTRIBUTION WIDTH 12.8 % (11.7-14.4)
[2019-12-07] MEDS ORDERED: ULTRAM 50MG50 MG PO (10:27)
[2019-12-07] MEDS ORDERED: OMEPRAZOLE20 M1 PO (10:27)
[2019-12-07] MEDS ORDERED: PROMETHAZI6.25 MG/5 PO (10:27)
[2019-12-07] MEDS ORDERED: PROMETHAZINE HC25 M1 PO (10:27)
[2019-12-07 10:29] LABS: AMYLASE 107 U/L (25-125); LIPASE 26 U/L (8-78)
[2019-12-07 10:54] VITALS: BP 138/91
== END 2019-12-07 10:44 | disposition home or self-care (01) ==
LOC: FSED 08:55
DX: R10.13 Epigastric pain (principal); R11.2 Nausea with vomiting, unspecified; R19.7 Diarrhea, unspecified; I10 Essential (primary) hypertension; F41.9 Anxiety disorder, unspecified; K21.9 Gastro-esophageal reflux disease without esophagitis; F31.9 Bipolar disorder, unspecified
CPT/HCPCS: 36415; 74021; 80048; 80053; 80076; 81003; 82150; 83690; 85025; 96374; 99284; J2550; J7030

== ENCOUNTER 2020-03-18 18:17 | Emergency (ER) | payer OTHER ==
[~2020-03-18] VITALS: Ht 162.6 cm; Wt 91.6 kg
[~2020-03-18 18:17] MED LIST changes: +OMEPRAZOLE20 M1 PO; +PROMETHAZI6.25 MG/5 PO; +SEROQUEL50 MG PO; +ULTRAM 50MG50 MG PO
[2020-03-18] MEDS ORDERED: AZITHROMYCIN250 MG PO (19:11)
== END 2020-03-18 19:29 | disposition home or self-care (01) ==
LOC: FSED 19:02
DX: J20.9 Acute bronchitis, unspecified (principal)
CPT/HCPCS: 99282

== ENCOUNTER 2020-03-27 00:04 | Emergency (ER) | payer OTHER ==
[~2020-03-27] VITALS: Ht 162.6 cm; Wt 91.6 kg
[~2020-03-27 00:04] MED LIST changes: +AZITHROMYCIN250 MG PO
[2020-03-27] MEDS ORDERED: SODIUM CHLORIDE 0.9% 1000ML 1,000 ML IV SCH (00:30)
[2020-03-27] MEDS ORDERED: HALOPERIDOL LACTATE 5 MG/ML VIAL IV ONE (00:30)
[2020-03-27 00:32] LABS: BASOPHILS % 0.4 % (0.0-1.0); EOSINOPHILS # (AUTO) 0.6 (0.0-0.4); EOSINOPHILS % 6.4 % (0.0-6.0); HEMATOCRIT 38.1 % (34.2-44.1); HEMOGLOBIN 13.6 g/dL (12.0-16.0); LYMPHOCYTES # (AUTO) 4.5 (1.0-3.2); LYMPHOCYTES % 48.8 % (18.0-39.1); MEAN CORPUSCULAR HEMOGLOBIN 32.5 pg (28-32); MEAN CORPUSCULAR HGB CONC 35.7 g/dL (31-35); MEAN CORPUSCULAR VOLUME 91.1 fL (81-99); MONOCYTES # (AUTO) 0.4 (0.2-0.8); MONOCYTES % 4.6 % (4.4-11.3); NEUTROPHILS # (AUTO) 3.7 (2.1-6.9); NEUTROPHILS % 39.5 % (38.7-80.0); PLATELET COUNT 242 x10e3/uL (140-360); RED BLOOD COUNT 4.18 x10e6/uL (3.6-5.1); RED CELL DISTRIBUTION WIDTH 12.7 % (11.7-14.4)
[2020-03-27 00:44] LABS: CLARITY,URINE SL CLOUDY (CLEAR); COLOR,URINE YELLOW (YELLOW); KETONES,URINE TRACE (NEGATIVE); LEUKOCYTE ESTERASE ,URINE NEGATIVE (NEGATIVE); NITRITE,URINE NEGATIVE (NEGATIVE); PROTEIN,URINE DIPSTICK NEGATIVE (NEGATIVE); URINE UROBILINOGEN 0.2 mg/dL (0.2 - 1)
[2020-03-27 00:49] LABS: ALANINE AMINOTRANSFERASE 49 IU/L (0-55); ALBUMIN 3.8 g/dL (3.5-5.0); ALBUMIN/GLOBULIN RATIO 0.9 (0.8-2.0); ALKALINE PHOSPHATASE 99 IU/L (40-150); ANION GAP 15.8 mmol/L (8-16); BLOOD UREA NITROGEN 14 mg/dL (7-26); BUN/CREATININE RATIO 20 (6-25); CALCIUM 9.1 mg/dL (8.4-10.2); CARBON DIOXIDE 23 mmol/L (22-29); CHLORIDE 104 mmol/L (98-107); EST GLOMERULAR FILTRATION RATE > 60 ML/MIN (60-); GLUCOSE 111 mg/dL (74-118); POTASSIUM 3.8 mmol/L (3.5-5.1); SODIUM 139 mmol/L (136-145)
[2020-03-27 00:54] LABS: BACTERIA,URINE FEW /HPF; EPITHELIAL CELLS,URINE MODERATE /LPF; RBC,URINE 0-5 /HPF (0-5); WBC,URINE (MAN) 0-5 /HPF (0-5)
[2020-03-27] MEDS ORDERED: HALOPERIDOL LACTATE 5 MG/ML VIAL IM ONE (01:00)
[2020-03-27] MEDS ORDERED: PROMETHAZINE 12.5MG/ NACL 0.9% 12.5 MG/50 ML BAG IV ONE (01:15)
[2020-03-27] MEDS ORDERED: PROMETHAZINE 12.5MG/ NACL 0.9% 50 ML ONE (01:16)
[2020-03-27 01:31] VITALS: BP 17/145
== END 2020-03-27 01:35 | disposition home or self-care (01) ==
LOC: ER 00:16
DX: R10.31 Right lower quadrant pain (principal); G89.29 Other chronic pain; I10 Essential (primary) hypertension; K21.9 Gastro-esophageal reflux disease without esophagitis; F31.9 Bipolar disorder, unspecified; K58.9 Irritable bowel syndrome, unspecified
CPT/HCPCS: 36415; 74176; 80053; 81001; 83690; 85025; 87086; 99284; J1630; J2550; J7030

== ENCOUNTER 2020-05-03 22:45 | Emergency (ER) | payer OTHER ==
[~2020-05-03] VITALS: Ht 162.6 cm; Wt 91.6 kg
[2020-05-03] MEDS ORDERED: ONDANSETRON HCL 4 MG ORAL DISINTEGRATING TAB PO STA (22:57)
[2020-05-03] MEDS ORDERED: ACETAMINOPHEN 325 MG TAB PO STA (22:57)
[2020-05-03] MEDS ORDERED: PROMETHAZINE HCL (IM) 25 MG/ML VIAL IM STA (23:09)
[2020-05-03] MEDS ORDERED: PROMETHAZINE HCL (IM) 25 MG/ML VIAL IM ONE (23:24)
== END 2020-05-03 23:23 | disposition home or self-care (01) ==
LOC: FSED 22:58
DX: M54.5 Low back pain (principal); R10.9 Unspecified abdominal pain; R30.0 Dysuria; R11.0 Nausea; I10 Essential (primary) hypertension; K21.9 Gastro-esophageal reflux disease without esophagitis; F31.9 Bipolar disorder, unspecified
CPT/HCPCS: 99282; J2550

== ENCOUNTER 2020-09-23 10:06 | Emergency (ER) | payer OTHER ==
[~2020-09-23] VITALS: Ht 162.6 cm; Wt 91.6 kg
[2020-09-23] MEDS ORDERED: SODIUM CHLORIDE 0.9% 1000ML 1,000 ML IV STA (10:32)
[2020-09-23] MEDS ORDERED: SODIUM CHLORIDE 0.9% 1000ML 1,000 ML ONE (10:43)
[2020-09-23] MEDS ORDERED: FAMOTIDINE 20 MG/2 ML VIAL IV ONE ×2 (10:43→10:45)
[2020-09-23] MEDS ORDERED: PROMETHAZINE HCL (IM) 25 MG/ML VIAL IM ONE (10:43)
[2020-09-23] MEDS ORDERED: LORAZEPAM INJ 2 MG/ML VIAL IV ONE (10:45)
[2020-09-23] MEDS ORDERED: PROMETHAZINE 25MG/ NS 50ML (IV) IV ONE (10:45)
[2020-09-23] MEDS ORDERED: PHENERGAN SUPP25 MG RC (11:08)
[2020-09-23] MEDS ORDERED: OMEPRAZOLE40 MG PO (11:08)
[2020-09-23] MEDS ORDERED: PROMETHAZINE HC25 M1 PO (11:08)
== END 2020-09-23 11:22 | disposition home or self-care (01) ==
LOC: FSED 10:33
DX: R11.2 Nausea with vomiting, unspecified (principal); R51.9 Headache, unspecified; R94.31 Abnormal electrocardiogram [ECG] [EKG]
CPT/HCPCS: 80053; 80307; 81003; 82553; 84484; 85025; 93005; 99284; J2060; J2550; J7030

== ENCOUNTER 2020-10-21 16:07 | Observation (INO) | payer OTHER ==
[~2020-10-21] VITALS: Ht 162.6 cm; Wt 99.1 kg
[~2020-10-21 16:07] MED LIST changes: +OMEPRAZOLE40 MG PO; +PHENERGAN SUPP25 MG RC
[2020-10-21] MEDS ORDERED: ONDANSETRON HCL INJ 2MG/ML 2ML 2 MG/ML VIAL IV STA (16:17)
[2020-10-21] MEDS ORDERED: SODIUM CHLORIDE 0.9% 1000ML 1,000 ML IV STA (16:17)
[2020-10-21] MEDS ORDERED: MORPHINE SULFATE INJ 4 MG/ML INJ 1ML IV STA (16:43)
[2020-10-21] MEDS ORDERED: PROMETHAZINE HCL (IM) 25 MG/ML VIAL IM ONE ×3 (16:45→19:33)
[2020-10-21] MEDS ORDERED: MORPHINE SULFATE INJ 4 MG/ML INJ 1ML ONE ×2 (17:02→20:49)
[2020-10-21] MEDS ORDERED: SODIUM CHLORIDE 0.9% 50ML 0 ML ONE (17:03)
[2020-10-21] MEDS ORDERED: DICYCLOMINE HCL 20 MG/2 ML VIAL IM ONE (18:00)
[2020-10-21] MEDS ORDERED: FAMOTIDINE 20 MG/2 ML VIAL IV STA (18:46)
[2020-10-21] MEDS ORDERED: PROMETHAZINE 25MG/ NS 50ML (IV) IV ONE (19:30)
[2020-10-21] MEDS ORDERED: FAMOTIDINE 20 MG/2 ML VIAL IV ONE (19:31)
[2020-10-21] MEDS ORDERED: ACETAMINOPHEN 325 MG TAB ONE (19:31)
[2020-10-21] MEDS ORDERED: PROMETHAZINE 25MG/ NS 50ML (IV) IV PRN (19:45)
[2020-10-21] MEDS: MORPHINE SULFATE INJ 4 MG/ML INJ 1ML IV PRN (20:45)
[2020-10-21 21:01] VITALS: BP 143/81
[2020-10-21] MEDS ORDERED: SEROQUEL100 MG PO (23:07)
[2020-10-21 23:18] VITALS: BP 143/81
[2020-10-22] VITALS (9 sets, daily range): BP systolic 128–163; BP diastolic 70–99
[2020-10-22] MEDS: MORPHINE SULFATE INJ 4 MG/ML INJ 1ML IV PRN ×4 (00:14→13:05)
[2020-10-22] MEDS: MELATONIN 5 MG TABLET PO SCH ×2 (00:45→22:05)
[2020-10-22] MEDS: QUETIAPINE FUMARATE 100 MG TAB PO SCH ×2 (01:11→22:06)
[2020-10-22] MEDS: LORAZEPAM 1 MG TAB PO PRN ×2 (01:24→10:44)
[2020-10-22] MEDS: Pantoprazole IV 40 MG in SODIUM CHLORIDE 0.9% 50ML 50 ML IV SCH ×5 (01:45→22:06)
[2020-10-22] MEDS ORDERED: MAGNESIUM/ALUMINUM/SIMETHICONE 30 ML UDC PO PRN (03:00)
[2020-10-22] MEDS ORDERED: MORPHINE SULFATE INJ 4 MG/ML INJ 1ML IV ONE (03:00)
[2020-10-22 04:25] LABS: CLARITY,URINE CLEAR (CLEAR); COLOR,URINE YELLOW (YELLOW); KETONES,URINE NEGATIVE (NEGATIVE); LEUKOCYTE ESTERASE ,URINE TRACE (NEGATIVE); NITRITE,URINE NEGATIVE (NEGATIVE); PROTEIN,URINE DIPSTICK NEGATIVE (NEGATIVE); URINE UROBILINOGEN 0.2 mg/dL (0.2 - 1)
[2020-10-22 04:26] LABS: AMPHETAMINES SCREEN,URINE NEGATIVE (NEGATIVE); PHENCYCLIDINE SCREEN,URINE NEGATIVE (NEGATIVE)
[2020-10-22 04:27] LABS: BENZODIAZEPINES SCREEN,URINE POSITIVE (NEGATIVE)
[2020-10-22 04:35] LABS: WBC,URINE (MAN) 21-50 /HPF (0-5)
[2020-10-22 04:36] LABS: BACTERIA,URINE FEW /HPF; EPITHELIAL CELLS,URINE FEW /LPF; TRANSITIONAL EPI CELLS,URINE FEW
[2020-10-22] MEDS: METOCLOPRAMIDE HCL 10 MG/2ML VIAL IV SCH ×3 (05:50→18:10)
[2020-10-22 06:56] LABS: BASOPHILS # (AUTO) 0.1 (0.0-0.1); BASOPHILS % 0.7 % (0.0-1.0); EOSINOPHILS # (AUTO) 0.5 (0.0-0.4); EOSINOPHILS % 6.4 % (0.0-6.0); HEMOGLOBIN 12.2 g/dL (12.0-16.0); LYMPHOCYTES # (AUTO) 3.4 (1.0-3.2); LYMPHOCYTES % 45.9 % (18.0-39.1); MEAN CORPUSCULAR HEMOGLOBIN 31.8 pg (28-32); MEAN CORPUSCULAR HGB CONC 34.9 g/dL (31-35); MEAN CORPUSCULAR VOLUME 91.1 fL (81-99); MONOCYTES # (AUTO) 0.4 (0.2-0.8); MONOCYTES % 5.4 % (4.4-11.3); NEUTROPHILS # (AUTO) 3.1 (2.1-6.9); NEUTROPHILS % 41.3 % (38.7-80.0); PLATELET COUNT 196 x10e3/uL (140-360); RED BLOOD COUNT 3.84 x10e6/uL (3.6-5.1); RED CELL DISTRIBUTION WIDTH 12.6 % (11.7-14.4)
[2020-10-22 07:15] LABS: ALBUMIN 3.6 g/dL (3.5-5.0); ALBUMIN/GLOBULIN RATIO 0.9 (0.8-2.0); ANION GAP 14.6 mmol/L (8-16); CALCIUM 8.6 mg/dL (8.4-10.2); CREATININE, SERUM 0.66 mg/dL (0.57-1.11); POTASSIUM 3.6 mmol/L (3.5-5.1)
[2020-10-22 08:44] LABS: AMYLASE 32 U/L (25-125); LIPASE 9 U/L (8-78)
[2020-10-22] MEDS ORDERED: PNEUMOCOCCAL VACCINE POLYVALENT 23 MCG/0.5 ML VIAL IM SCH (14:00)
[2020-10-22] MEDS ORDERED: HYOSCYAMINE 0.125 MG TAB SL PRN (14:30)
[2020-10-22] MEDS ORDERED: CHLORDIAZEPOXIDE/CLIDINIUM 1 CAP PO PRN (14:30)
[2020-10-22] MEDS: DICYCLOMINE HCL 20 MG TAB PO SCH ×2 (15:02→22:05)
[2020-10-22] MEDS ORDERED: ACETAMINOPHEN 325 MG TAB PO PRN (15:15)
[2020-10-22] MEDS: ACETAMIN/BUTALBITAL/CAFFEINE TAB PO PRN (15:44)
[2020-10-22] MEDS ORDERED: SIMETHICONE 80 MG CHEW PO PRN (16:00)
[2020-10-22] MEDS: MORPHINE SULFATE INJ 2 MG/ML SYR IV PRN (18:16)
[2020-10-22] MEDS ORDERED: AMLODIPINE BESYLATE 10 MG TAB PO SCH (21:00)
[2020-10-22] MEDS ORDERED: QUETIAPINE FUMARATE 100 MG TAB PO SCH (21:00)
[2020-10-22] MEDS: GABAPENTIN 400 MG CAP PO SCH (23:11)
[2020-10-23] VITALS: BP 119/77
[2020-10-23] MEDS: MORPHINE SULFATE INJ 2 MG/ML SYR IV PRN (03:28)
[2020-10-23] MEDS: Pantoprazole IV 40 MG in SODIUM CHLORIDE 0.9% 50ML 50 ML IV SCH ×2 (03:34→07:30)
[2020-10-23 04:00] VITALS: BP 131/91
[2020-10-23] MEDS: ACETAMIN/BUTALBITAL/CAFFEINE TAB PO PRN (04:15)
[2020-10-23] MEDS: METOCLOPRAMIDE HCL 10 MG/2ML VIAL IV SCH ×2 (06:00)
[2020-10-23] MEDS ORDERED: CHLORDIAZEPOXIDE/CLIDINIUM 1 CAP PO SCH (07:30)
[2020-10-23 08:00] VITALS: BP 147/96
[2020-10-23 08:46] LABS: BASOPHILS % 0.5 % (0.0-1.0); EOSINOPHILS # (AUTO) 0.4 (0.0-0.4); EOSINOPHILS % 5.1 % (0.0-6.0); HEMATOCRIT 34.5 % (34.2-44.1); HEMOGLOBIN 12.4 g/dL (12.0-16.0); LYMPHOCYTES # (AUTO) 3.3 (1.0-3.2); MEAN CORPUSCULAR HEMOGLOBIN 32.5 pg (28-32); MEAN CORPUSCULAR HGB CONC 35.9 g/dL (31-35); MEAN CORPUSCULAR VOLUME 90.6 fL (81-99); MONOCYTES # (AUTO) 0.4 (0.2-0.8); MONOCYTES % 5.2 % (4.4-11.3); NEUTROPHILS # (AUTO) 4.2 (2.1-6.9); NEUTROPHILS % 49.8 % (38.7-80.0); PLATELET COUNT 178 x10e3/uL (140-360); RED BLOOD COUNT 3.81 x10e6/uL (3.6-5.1); RED CELL DISTRIBUTION WIDTH 12.2 % (11.7-14.4)
[2020-10-23] MEDS ORDERED: QUETIAPINE FUMARATE 25 MG TAB PO SCH (09:00)
[2020-10-23] MEDS ORDERED: GABAPENTIN 400 MG CAP PO SCH (09:00)
[2020-10-23] MEDS ORDERED: FLUOXETINE HCL 10 MG CAP PO SCH (09:00)
[2020-10-23 09:19] LABS: ALBUMIN 3.5 g/dL (3.5-5.0); ALBUMIN/GLOBULIN RATIO 0.9 (0.8-2.0); CALCIUM 8.9 mg/dL (8.4-10.2); CREATININE, SERUM 0.71 mg/dL (0.57-1.11); MAGNESIUM 2.1 MG/DL (1.3-2.1)
[2020-10-23] MEDS: DICYCLOMINE HCL 20 MG TAB PO SCH (10:40)
[2020-10-23] MEDS: GABAPENTIN 400 MG CAP PO SCH (10:40)
== END 2020-10-23 11:35 | disposition home or self-care (01) ==
LOC: FSED 16:13 → ERHOLD 16:18 → MED/SURG2 21:00
PROVIDERS: ADMIT Internal Medicine; ATTEND Internal Medicine
DX: A08.4 Viral intestinal infection, unspecified (principal); R30.0 Dysuria; I10 Essential (primary) hypertension; G44.1 Vascular headache, not elsewhere classified; Z88.8 Allergy status to other drugs, medicaments and biological substances; K21.9 Gastro-esophageal reflux disease without esophagitis; Q39.8 Other congenital malformations of esophagus; F31.9 Bipolar disorder, unspecified; F11.90 Opioid use, unspecified, uncomplicated; F15.90 Other stimulant use, unspecified, uncomplicated; Z20.822 Contact with and (suspected) exposure to COVID-19; W01.0XXA Fall on same level from slipping, tripping and stumbling without subsequent striking against object, initial encounter; Y93.89 Activity, other specified; Y92.230 Patient room in hospital as the place of occurrence of the external cause
CPT/HCPCS: 36415 ×2; 70551; 74019; 74177; 80048; 80053 ×2; 80076; 80307; 81001; 81003; 82150; 82948; 83690; 83735; 84100; 85025 ×3; 93005; 99284; C9113 ×2; G0378 ×3; J0500; J2270 ×4; J2550; J2765 ×2; U0002

== ENCOUNTER 2020-12-08 08:45 | Emergency (ER) | payer OTHER ==
[~2020-12-08] VITALS: Ht 162.6 cm; Wt 98.9 kg
[~2020-12-08 08:45] MED LIST changes: +SEROQUEL100 MG PO
[2020-12-08] MEDS ORDERED: ONDANSETRON HCL INJ 2MG/ML 2ML 2 MG/ML VIAL IV STA (09:20)
[2020-12-08] MEDS ORDERED: SODIUM CHLORIDE 0.9% 1000ML 1,000 ML IV STA (09:20)
[2020-12-08 09:40] LABS: BASOPHILS % 0.3 % (0.0-1.0); EOSINOPHILS # (AUTO) 0.3 (0.0-0.4); EOSINOPHILS % 3.1 % (0.0-6.0); HEMATOCRIT 34.2 % (34.2-44.1); LYMPHOCYTES # (AUTO) 4.4 (1.0-3.2); LYMPHOCYTES % 49.8 % (18.0-39.1); MEAN CORPUSCULAR HEMOGLOBIN 31.7 pg (28-32); MEAN CORPUSCULAR HGB CONC 35.1 g/dL (31-35); MEAN CORPUSCULAR VOLUME 90.2 fL (81-99); MONOCYTES # (AUTO) 0.4 (0.2-0.8); MONOCYTES % 4.9 % (4.4-11.3); NEUTROPHILS # (AUTO) 3.7 (2.1-6.9); NEUTROPHILS % 41.7 % (38.7-80.0); PLATELET COUNT 199 x10e3/uL (140-360); RED BLOOD COUNT 3.79 x10e6/uL (3.6-5.1); RED CELL DISTRIBUTION WIDTH 12.2 % (11.7-14.4)
[2020-12-08] MEDS ORDERED: DIATRIZOATE MEGL/DIATRIZOA SOD 30 ML BTL PO ONE (09:43)
[2020-12-08] MEDS ORDERED: DICYCLOMINE HCL 20 MG/2 ML VIAL IM ONE (10:00)
[2020-12-08 10:07] LABS: ALBUMIN 3.7 g/dL (3.5-5.0); ALBUMIN/GLOBULIN RATIO 0.9 (0.8-2.0); ANION GAP 11.5 mmol/L (8-16); CALCIUM 8.5 mg/dL (8.4-10.2); CREATININE, SERUM 0.72 mg/dL (0.57-1.11); MAGNESIUM 1.9 MG/DL (1.3-2.1); POTASSIUM 3.5 mmol/L (3.5-5.1)
[2020-12-08 10:08] LABS: CLARITY,URINE CLEAR (CLEAR); COLOR,URINE YELLOW (YELLOW); LEUKOCYTE ESTERASE ,URINE NEGATIVE (NEGATIVE); NITRITE,URINE NEGATIVE (NEGATIVE)
[2020-12-08 10:09] LABS: KETONES,URINE NEGATIVE (NEGATIVE); PROTEIN,URINE DIPSTICK NEGATIVE (NEGATIVE); URINE UROBILINOGEN 0.2 mg/dL (0.2 - 1)
[2020-12-08 10:27] LABS: BACTERIA,URINE FEW /HPF; EPITHELIAL CELLS,URINE FEW /LPF; WBC,URINE (MAN) 21-50 /HPF (0-5)
[2020-12-08] MEDS ORDERED: SODIUM CHLORIDE 0.9% 50ML 50 ML ONE (10:43)
[2020-12-08] MEDS ORDERED: IOPAMIDOL 370 MG/ML 200 ML INFUS..BTL INJ ONE (10:43)
[2020-12-08] MEDS ORDERED: Morphine 4mg Syringe 4 MG/ML INJ IV STA (10:46)
[2020-12-08 12:13] LABS: AMPHETAMINES SCREEN,URINE NEGATIVE (NEGATIVE); PHENCYCLIDINE SCREEN,URINE NEGATIVE (NEGATIVE)
[2020-12-08 12:14] LABS: BENZODIAZEPINES SCREEN,URINE POSITIVE (NEGATIVE)
[2020-12-08] MEDS ORDERED: PROMETHAZINE 12.5MG/ NACL 0.9% 12.5 MG/50 ML BAG IV ONE (12:30)
== END 2020-12-08 13:18 | disposition home or self-care (01) ==
LOC: ER 09:21
DX: R10.32 Left lower quadrant pain (principal); N39.0 Urinary tract infection, site not specified; G89.29 Other chronic pain; I10 Essential (primary) hypertension; E78.5 Hyperlipidemia, unspecified; K21.9 Gastro-esophageal reflux disease without esophagitis; F41.9 Anxiety disorder, unspecified; F31.9 Bipolar disorder, unspecified
CPT/HCPCS: 36415; 74177; 80053; 80307; 81001; 83690; 83735; 85025; 87086; 99284; C9113; J0500; J2270; J2405; J2550; J7030; Q9967

== ENCOUNTER 2020-12-10 06:33 | Emergency (ER) | payer OTHER ==
[~2020-12-10] VITALS: Ht 162.6 cm; Wt 120.2 kg
== END 2020-12-10 07:07 | disposition left against medical advice (07) ==
LOC: FSED 07:01
DX: R05.9 Cough, unspecified (principal); J20.9 Acute bronchitis, unspecified; J06.9 Acute upper respiratory infection, unspecified

== ENCOUNTER 2020-12-31 01:08 | Emergency (ER) | payer OTHER ==
[~2020-12-31] VITALS: Ht 162.6 cm; Wt 120.2 kg
[2020-12-31] MEDS ORDERED: CYCLOBENZAPRINE10 MG PO (01:53)
[2020-12-31] MEDS ORDERED: LIDOCAINE1 EAC1 TOP (01:59)
[2020-12-31] MEDS ORDERED: ULTRAM 50MG50 MG PO (02:00)
[2020-12-31] MEDS ORDERED: KETOROLAC TROMETHAMINE 60 MG/2 ML VIAL IM ONE (02:00)
[2020-12-31] MEDS ORDERED: KETOROLAC TROMETHAMINE 60 MG/2 ML VIAL ONE (02:03)
== END 2020-12-31 02:30 | disposition home or self-care (01) ==
LOC: FSED 01:15
DX: M54.50 Low back pain, unspecified (principal); M62.830 Muscle spasm of back; K21.9 Gastro-esophageal reflux disease without esophagitis; R10.9 Unspecified abdominal pain; I10 Essential (primary) hypertension; F31.9 Bipolar disorder, unspecified; Z88.1 Allergy status to other antibiotic agents; Z88.2 Allergy status to sulfonamides; Z88.8 Allergy status to other drugs, medicaments and biological substances; Z79.899 Other long term (current) drug therapy
CPT/HCPCS: 99282; J1885

== ENCOUNTER 2021-01-25 02:28 | Emergency (ER) | payer OTHER ==
[~2021-01-25] VITALS: Ht 162.6 cm; Wt 92.1 kg
[~2021-01-25 02:28] MED LIST changes: +CYCLOBENZAPRINE10 MG PO; +LIDOCAINE1 EAC1 TOP
[2021-01-25] MEDS ORDERED: FAMOTIDINE 20 MG/2 ML VIAL IV STA (03:03)
[2021-01-25] MEDS ORDERED: ONDANSETRON HCL INJ 2MG/ML 2ML 2 MG/ML VIAL IV STA (03:03)
[2021-01-25] MEDS ORDERED: SODIUM CHLORIDE 0.9% 1000ML 1,000 ML IV SCH (03:15)
[2021-01-25] MEDS ORDERED: ONDANSETRON HCL INJ 2MG/ML 2ML 2 MG/ML VIAL ONE (03:17)
[2021-01-25] MEDS ORDERED: FAMOTIDINE 20 MG/2 ML VIAL IV ONE (03:18)
[2021-01-25] MEDS ORDERED: SODIUM CHLORIDE 0.9% 1000ML 1,000 ML ONE (03:18)
== END 2021-01-25 03:38 | disposition home or self-care (01) ==
LOC: FSED 02:33
DX: R10.13 Epigastric pain (principal); K52.9 Noninfective gastroenteritis and colitis, unspecified; R11.2 Nausea with vomiting, unspecified; K21.9 Gastro-esophageal reflux disease without esophagitis; I10 Essential (primary) hypertension; F31.9 Bipolar disorder, unspecified
CPT/HCPCS: 80048; 80076; 82553; 84484; 85025; 96374; 96376; 99283; J2405; J7030

== ENCOUNTER 2021-03-24 17:07 | Emergency (ER) | payer OTHER ==
[~2021-03-24] VITALS: Ht 162.6 cm; Wt 99.8 kg
[2021-03-24] MEDS ORDERED: LOSARTAN POTAS100 MG PO (18:31)
[2021-03-24] MEDS ORDERED: FIORICET 50-301 EACH (18:31)
[2021-03-24] MEDS ORDERED: HYDROCODON-ACE1 EA11 (18:31)
[2021-03-24] MEDS ORDERED: ATORVASTATIN CA20 MG PO (18:31)
[2021-03-24] MEDS ORDERED: FLUCONAZOLE100 MG PO (19:30)
[2021-03-24] MEDS ORDERED: MACROBID 100 M100 MG PO (19:30)
[2021-03-24] MEDS ORDERED: LIDOCAINE1 EAC1 TD (19:41)
[2021-03-24] MEDS ORDERED: CYCLOBENZAPRINE10 MG PO (19:41)
[2021-03-24] MEDS ORDERED: DIFLUCAN100 MG PO (19:41)
[2021-03-24] MEDS ORDERED: NITROFURANTOIN100 MG PO (19:41)
== END 2021-03-24 19:58 | disposition home or self-care (01) ==
LOC: FSED 17:20
DX: J06.9 Acute upper respiratory infection, unspecified (principal); R06.02 Shortness of breath; R05.9 Cough, unspecified; M54.50 Low back pain, unspecified; I10 Essential (primary) hypertension; E78.5 Hyperlipidemia, unspecified; K21.9 Gastro-esophageal reflux disease without esophagitis
CPT/HCPCS: 71045; 72100; 81003; 87400; 99283

== ENCOUNTER 2021-08-09 06:51 | Emergency (ER) | payer OTHER ==
[~2021-08-09] VITALS: Ht 162.6 cm; Wt 99.8 kg
[~2021-08-09 06:51] MED LIST changes: +ATORVASTATIN CA20 MG PO; +DIFLUCAN100 MG PO; +FIORICET 50-301 EACH; +FLUCONAZOLE100 MG PO; +HYDROCODON-ACE1 EA11; +LIDOCAINE1 EAC1 TD; +LOSARTAN POTAS100 MG PO; +MACROBID 100 M100 MG PO; +NITROFURANTOIN100 MG PO
[2021-08-09] MEDS ORDERED: SODIUM CHLORIDE 0.9% 1000ML 1,000 ML IV STA (07:08)
[2021-08-09] MEDS ORDERED: ONDANSETRON HCL INJ 2MG/ML 2ML 2 MG/ML VIAL IV STA (07:08)
[2021-08-09] MEDS ORDERED: DICYCLOMINE HCL 20 MG/2 ML VIAL IM ONE (07:15)
[2021-08-09 07:17] LABS: BASOPHILS # (AUTO) 0.1 (0.0-0.1); BASOPHILS % 0.7 % (0.0-1.0); EOSINOPHILS # (AUTO) 0.6 (0.0-0.4); EOSINOPHILS % 7.5 % (0.0-6.0); HEMATOCRIT 35.5 % (34.2-44.1); HEMOGLOBIN 12.1 g/dL (12.0-16.0); LYMPHOCYTES # (AUTO) 3.7 (1.0-3.2); LYMPHOCYTES % 49.3 % (18.0-39.1); MEAN CORPUSCULAR HEMOGLOBIN 32.5 pg (28-32); MEAN CORPUSCULAR HGB CONC 34.1 g/dL (31-35); MEAN CORPUSCULAR VOLUME 95.4 fL (81-99); MONOCYTES # (AUTO) 0.5 (0.2-0.8); MONOCYTES % 6.2 % (4.4-11.3); NEUTROPHILS # (AUTO) 2.8 (2.1-6.9); NEUTROPHILS % 36.2 % (38.7-80.0); PLATELET COUNT 214 x10e3/uL (140-360); RED BLOOD COUNT 3.72 x10e6/uL (3.6-5.1); RED CELL DISTRIBUTION WIDTH 13.4 % (11.7-14.4)
[2021-08-09 07:38] LABS: ALBUMIN 3.7 g/dL (3.5-5.0); ALBUMIN/GLOBULIN RATIO 0.8 (0.8-2.0); ANION GAP 14.5 mmol/L (8-16); CALCIUM 8.9 mg/dL (8.4-10.2); CREATININE, SERUM 0.68 mg/dL (0.57-1.11); MAGNESIUM 1.9 MG/DL (1.3-2.1); POTASSIUM 3.5 mmol/L (3.5-5.1)
[2021-08-09 07:39] LABS: CLARITY,URINE CLEAR (CLEAR); COLOR,URINE YELLOW (YELLOW); LEUKOCYTE ESTERASE ,URINE NEGATIVE (NEGATIVE); NITRITE,URINE NEGATIVE (NEGATIVE)
[2021-08-09 07:40] LABS: KETONES,URINE NEGATIVE (NEGATIVE); PROTEIN,URINE DIPSTICK NEGATIVE (NEGATIVE); URINE UROBILINOGEN 0.2 mg/dL (0.2 - 1)
[2021-08-09 07:50] LABS: BACTERIA,URINE FEW /HPF; EPITHELIAL CELLS,URINE FEW /LPF; RBC,URINE 0-5 /HPF (0-5); WBC,URINE (MAN) 0-5 /HPF (0-5)
[2021-08-09 09:49] VITALS: BP 134/84
== END 2021-08-09 09:25 | disposition home or self-care (01) ==
LOC: ER 06:58
DX: R10.11 Right upper quadrant pain (principal); G89.29 Other chronic pain; R11.2 Nausea with vomiting, unspecified; I10 Essential (primary) hypertension; E78.5 Hyperlipidemia, unspecified; K21.9 Gastro-esophageal reflux disease without esophagitis; F31.9 Bipolar disorder, unspecified; F41.9 Anxiety disorder, unspecified
CPT/HCPCS: 36415; 74176; 80053; 81001; 83690; 83735; 85025; 87086; 99284; J0500; J2405; J7030